=== PATIENT | female | born 1940 | race Caucasian/White ===

== ENCOUNTER → 2016-11-25 | Day surgery (SDC) | payer MEDICARE, OTHER, MEDICAID ==
[~2016-11-25] VITALS: Ht 160 cm; Wt 72.6 kg
[~2016-11-25] MED LIST: ACETAMINOPHEN 325 MG TAB As Ordered ONE; ACETAMINOPHEN TAB 650MG DOSE (2X325MG) PO ONE; ANUS2.5C2 PR; ASPI81TA85 PO; IBUP600T26 PO; IBUPROFEN 600 MG TAB PO PRN; IODINE STRONG SOLN 15 ML BTL As Ordered ONE; KETOROLAC 60 MG/2 ML VIAL (J1885) As Ordered ONE; LABETALOL HCL 100 MG/20 ML VIAL As Ordered ONE; LIDOCAINE 2% INJ 100 MG/5 ML SDV (FOR ANES.) As Ordered ONE; LR 1,000 ML IV SCH; MIDAZOLAM INJ 2 MG/2 ML VIAL (J2250) As Ordered ONE; MIRA3350 PO; NAME28CA PO; OMEG12002 PO; ONDANSETRON 4MG/2ML VIAL (J2405) As Ordered ONE; PERCOCET 5MG/325MG TAB PO PRN; PROPOFOL 200 MG/20 ML VIAL As Ordered ONE; REFR1DRO8 OU; SENN8.6C PO; SERT-138 PO; TYLE650T35 PO; dexameTHASONE 4 MG/ML 1ML VIAL (J1100) As Ordered ONE; ePHEDrine SULFATE 25 MG/5 ML(5MG/ML) SYRINGE As Ordered ONE; fentaNYL 100 MCG/2 ML INJECTION (J3010) As Ordered ONE; fentaNYL 100 MCG/2 ML INJECTION (J3010) IV PRN
[2016-11-25 17:45] VITALS: BP 124/88
--- NOTE | 2016-11-25 20:51 | RO ---
DATE OF PROCEDURE: 11/25/2016 PREOPERATIVE DIAGNOSIS: High-grade dysplasia, postmenopausal bleeding, thickened endometrium by ultrasound. POSTOPERATIVE DIAGNOSIS: High-grade dysplasia, postmenopausal bleeding, thickened endometrium by ultrasound. PROCEDURE: Dilation and curettage, hysteroscopy and colposcopy with loop electrode excision SURGEON: Dr. Mai Valenzuela SECURITY FLEX OFFICER: ANESTHESIA: General endotracheal anesthesia. DESCRIPTION OF PROCEDURE: Anjum was brought to the operating room where sufficient general endotracheal anesthesia was induced, and she was prepped, draped and positioned in the usual sterile fashion, bladder emptied and the anterior aspect of the cervix grasped with a single-tooth tenaculum. The cervix was carefully sounded. The uterus was slightly enlarged for a 76 year old and the hysteroscope was placed. There was quite a bit of tissue in the fluid that was circulating within the uterus. She did not have polypoid projections of the typical sense that you see with some of the more common types of adenocarcinoma of the uterus but there was a lack of cohesion of the tile layer of the uterus evident as we placed the MyoSure and did some resection. This tissue is not as obviously glandular as some is, but definitely there was a layer that could be sloughed off by pressure from the MyoSure, which is certainly not diagnostic specifically but is concerning regarding significant lesion of the endometrium, although not of the most common types based on just the gross appearance. Multiple photographs were taken to document the appearance of the lining and you can see in those photographs that there is a smooth appearance of the lining, not at all polypoid as is often seen but with just pressure from the MyoSure, tissue slid off the lining and away that was concerning. After the MyoSure resection and we did back into the cervix and visualize that, in the endocervical canal, I could not really visualize an abnormality, but we did send separate curettes for this patient in whom I am concerned about the diagnosis. We then did colposcopy, and there was obvious lesion of the cervix and it was the patient's family's desire to go ahead and get a diagnostic result and to do what was needed while she had anesthesia with the dilation and curettage that we needed for the bleeding. So, with that obviously visible lesion, we went ahead and did a LEEP conization as well and this was uncomplicated. The ball-tip cautery was used to cauterize the base of the cervix after the excision. There was no atypical bleeding at the cervix itself. Obviously, we do not have a picture on our colposcope in the operating room (OR), so we had already done the curettings and there were a couple of times the curette had obviously passed through the cervix and definitely some friable tissue there on the cervix, so that was, of course, all included in the sample so it should be fine as far as our diagnostic efforts. After the LEEP was done and good hemostasis was achieved, the procedure was ended. Estimated blood loss for the procedure was maybe 10 mL. Fluid replacement was crystalloid. Complications: None. Condition and Disposition: Anjum tolerated the procedure well and was recovering in the recovery room in good condition.
== END | disposition home or self-care (01) ==
LOC: M SDC 10:44
PROVIDERS: ATTEND Obstetrics & Gynecology
DX: D06.9 Carcinoma in situ of cervix, unspecified (principal); N95.0 Postmenopausal bleeding; R93.8 Abnormal findings on diagnostic imaging of other specified body structures; G30.9 Alzheimer's disease, unspecified; F02.81 Dementia in other diseases classified elsewhere, unspecified severity, with behavioral disturbance; M81.0 Age-related osteoporosis without current pathological fracture; F41.9 Anxiety disorder, unspecified; E78.00 Pure hypercholesterolemia, unspecified; R60.0 Localized edema; K59.00 Constipation, unspecified; R19.7 Diarrhea, unspecified; R29.898 Other symptoms and signs involving the musculoskeletal system; G89.29 Other chronic pain; M54.2 Cervicalgia; M12.9 Arthropathy, unspecified; F32.9 Major depressive disorder, single episode, unspecified; N89.8 Other specified noninflammatory disorders of vagina; Z88.5 Allergy status to narcotic agent; Z79.899 Other long term (current) drug therapy; Z79.82 Long term (current) use of aspirin; Z78.0 Asymptomatic menopausal state

== ENCOUNTER 2016-11-26 11:30 | Inpatient (IN) | payer MEDICARE, OTHER, MEDICAID ==
[~2016-11-26] VITALS: Ht 157.5 cm; Wt 70.9 kg
[~2016-11-26 11:30] MED LIST changes: -ACETAMINOPHEN 325 MG TAB As Ordered ONE; -ACETAMINOPHEN TAB 650MG DOSE (2X325MG) PO ONE; -IBUPROFEN 600 MG TAB PO PRN; -IODINE STRONG SOLN 15 ML BTL As Ordered ONE; -KETOROLAC 60 MG/2 ML VIAL (J1885) As Ordered ONE; -LABETALOL HCL 100 MG/20 ML VIAL As Ordered ONE; -LIDOCAINE 2% INJ 100 MG/5 ML SDV (FOR ANES.) As Ordered ONE; -LR 1,000 ML IV SCH; -MIDAZOLAM INJ 2 MG/2 ML VIAL (J2250) As Ordered ONE; -ONDANSETRON 4MG/2ML VIAL (J2405) As Ordered ONE; -PERCOCET 5MG/325MG TAB PO PRN; -PROPOFOL 200 MG/20 ML VIAL As Ordered ONE; -dexameTHASONE 4 MG/ML 1ML VIAL (J1100) As Ordered ONE; -ePHEDrine SULFATE 25 MG/5 ML(5MG/ML) SYRINGE As Ordered ONE; -fentaNYL 100 MCG/2 ML INJECTION (J3010) As Ordered ONE; -fentaNYL 100 MCG/2 ML INJECTION (J3010) IV PRN
[2016-11-26 12:23] LABS: MEAN CORPUSCULAR HEMOGLOBIN 30.8 pg (27.0-33.0); MEAN CORPUSCULAR VOLUME 90.5 fl (80.0-96.0); PLATELET COUNT, AUTOMATED 139 k/mm3 (150-450); WHITE BLOOD COUNT 28.5 K/mm3 (4.0-10.0)
[2016-11-26] MEDS ORDERED: ACETAMINOPHEN 650 MG SUPP As Ordered ONE (12:32)
[2016-11-26 12:53] LABS: ALBUMIN 2.9 GM/DL (3.2-5.2); ALBUMIN/GLOBULIN RATIO 0.83 (1.00-1.93); BILIRUBIN,DIRECT 0.1 MG/DL (0.0-0.2); BILIRUBIN,TOTAL 0.5 MG/DL (0.2-1.0); CALCIUM LEVEL 8.5 MG/DL (8.8-10.2); CREATININE FOR GFR 1.49 MG/DL (0.55-1.02); GLOMERULAR FILTRATION RATE 36.2 (>39); POTASSIUM SERUM 3.3 MEQ/L (3.5-5.1); TOTAL PROTEIN 6.4 GM/DL (6.4-8.2)
[2016-11-26 12:56] LABS: BANDS 10 % (< 11)
[2016-11-26] MEDS ORDERED: CEFEPIME INJ 2 GM VIAL (MAXIPIME) (J0692) As Ordered ONE (13:05)
[2016-11-26 13:20] LABS: RENAL EPITHELIAL CELLS 1 /HPF
--- NOTE | 2016-11-26 13:57 | REP ---
PORTABLE CHEST AP portable view of the chest is performed and compared to a prior study of 07/03/2014. There is poor ventilation with crowded lung markings in each lung base. No infiltrate is seen. The cardiomediastinal silhouette appears mildly magnified. IMPRESSION: No definite acute infiltrate. Signed by Hunter Murillo MD 11/26/2016 04:28 P
--- NOTE | 2016-11-26 14:57 | REP ---
CT study of the chest without contrast: History: Aspiration. Comparison is made with today's chest x-ray. CT findings: The lungs are symmetrically aerated. There is some subsegmental bibasilar lower lobe plate-like atelectasis bilaterally. No other infiltrate is appreciated. No pleural effusion or pericardial effusion is seen. There is vascular calcification. No hilar or mediastinal mass or adenopathy is seen. 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 This is a normal variant. The thoracic aorta is tortuous and normal in caliber. No extrathoracic mass or adenopathy is seen. No pulmonary mass lesion is observed. Bone window settings demonstrate diffuse degenerative disc disease. There is mild osteoporotic wedging in several thoracic vertebrae. No bony destructive lesion is seen. Impression: Mild bilateral lower lobe discoid atelectasis. Cardiomegaly. Otherwise no acute disease. Signed by Stuart Manzo MD 11/26/2016 03:49 P
--- NOTE | 2016-11-26 14:59 | REP ---
CT STUDY OF THE ABDOMEN AND PELVIS WITHOUT IV OR ORAL CONTRAST: HISTORY: Aspiration. Abdominal pain. Comparison CT study September 09, 2016. FINDINGS: There are multiple low-density areas in this liver consistent with hepatic cysts unchanged from the comparison study. No focal splenic lesion is seen. There are however several small accessory splenules. The gallbladder is mildly distended. It is homogeneous. There is a large cyst occupying the lower pole left kidney. This measures 11.5 cm in AP dimension today, previously 10.7 cm on September 09, 2016. It is slightly larger. No hydronephrosis is seen. No intrarenal calculus is observed. No retroperitoneal mass or adenopathy is seen. Normal caliber aorta is noted. Uterus is somewhat heterogeneous consistent with fibroid change. The endometrium appears thickened or distended. Cannot exclude endometrial hyperplasia or malignancy. This is similar to prior CT and ultrasound appearance. A Tellez catheter is seen within the otherwise empty urinary bladder. No obstructive gastrointestinal lesion is seen. No abdominal wall defect is observed. Bone window settings demonstrate degenerative spine changes. No acute bony abnormality is seen. IMPRESSION: 1. Mildly distended gallbladder. 2. Stable hepatic cysts. 3. 11.5 cm simple cyst left kidney slightly larger than on the September 09, [address] 4. Somewhat enlarged fibroid uterus. Endometrium appears distended similar to prior study and recent ultrasound. I cannot exclude endometrial hyperplasia or malignancy. 5. Tellez catheter. Signed by Stuart Manzo MD 11/26/2016 03:50 P
[2016-11-26] MEDS ORDERED: DIGOXIN INJ 0.5 MG/2 ML AMP (J1160) As Ordered ONE (16:05)
[2016-11-26] MEDS ORDERED: VANCOMYCIN ORAL SOL 250MG/5ML ORAL SYRINGE PO ONE (16:30)
[2016-11-26] MEDS ORDERED: ONDANSETRON 4MG/2ML VIAL (J2405) IV PRN (19:00)
--- NOTE | 2016-11-26 19:33 | ECGEPIP ---
Stationary ECG Study [facility] - ED Test Date: 2016-11-26 Pat Name: JUSTIN CRUZ Department: Room: - Gender: F Automatic Clipper: lyle : 1940 Requested By: Delaney Perez Order Number: [id number] Reading MD: Delaney Perez Measurements Intervals [place] Rate: 104 P: 12 TX: 142 QRS: 10 QRSD: 84 T: 8 QT: 351 QTc: 462 Interpretive Statements SINUS TACHYCARDIA MODERATE T-WAVE ABNORMALITY, CONSIDER ANTEROLATERAL ISCHEMIA LOW VOLTAGE LIMB NSTTW ABNORMALITY Electronically Signed On 11-26-2016 19:33:25 EST by Delaney Perez
--- NOTE | 2016-11-26 19:34 | ECGEPIP ---
Stationary ECG Study [facility] - ED Test Date: 2016-11-26 Pat Name: JUSTIN CRUZ Department: Room: - Gender: F Vehicle Assembler: lyle : 1940 Requested By: Delaney Perez Order Number: [id number] Reading MD: Delaney Perez Measurements Intervals [place] Rate: 176 P: VT: 0 QRS: 27 QRSD: 98 T: 214 QT: 248 QTc: 425 Interpretive Statements SUPRAVENTRICULAR TACHYCARDIA, POSSIBLE ATRIAL FLUTTER ST DEVIATION AND MODERATE T-WAVE ABNORMALITY, CONSIDER ANTEROLATERAL ISCHEMIA ST DEVIATION AND MODERATE T-WAVE ABNORMALITY, CONSIDER INFERIOR ISCHEMIA PRIOR SINUS TACHYCARDIA/ MORE PRONOUNCED ST CHANGES CLINICAL CORRELATION Electronically Signed On 11-26-2016 19:34:02 EST by Delaney Perez
[2016-11-26 19:40] LABS: MEAN CORPUSCULAR HGB CONC 33.8 g/dl (32.0-36.5); MEAN CORPUSCULAR VOLUME 91.8 fl (80.0-96.0); RED CELL DISTRIBUTION WIDTH 13.1 % (11.5-14.5); WHITE BLOOD COUNT 26.4 K/mm3 (4.0-10.0)
[2016-11-26 19:59] LABS: CALCIUM LEVEL 7.5 MG/DL (8.8-10.2); CREATININE FOR GFR 1.28 MG/DL (0.55-1.02); GLOMERULAR FILTRATION RATE 43.2 (>39); POTASSIUM SERUM 3.7 MEQ/L (3.5-5.1)
--- NOTE | 2016-11-26 21:40 | HPE ---
DATE OF ADMISSION: 11/26/2016 PRIMARY CARE PROVIDER: Dr. Becky Garcia BRAND DEVELOPMENT MANAGER: Mai Valenzuela MD CHIEF COMPLAINT: Fever. HISTORY OF PRESENT ILLNESS: The patient is a 76-year-old female with advanced primary progressive aphasia, as well as Alzheimer's type dementia, which is also fairly advanced. She reportedly was found to have dysfunctional uterine discharge, as well as CT scan revealed abnormal thickening of her uterine lining and there was concern for uterine cancer. As such, the patient had a dilatation and curettage and LEEP procedure yesterday. Following this procedure, she was febrile. However, the patient's daughter insisted on taking the patient home. However, the patient did not return to baseline and continued to be febrile. As such, she was brought to the emergency room where she was found to be quite lethargic. The patient reported has a history of chronic urinary tract infections most recently with Escherichia (E) coli, which is fairly pansensitive. The patient is nonverbal at baseline. As such, the history is taken via emergency department provider and discussion with the patient's daughter. The patient was noted to have significant profuse diarrhea for the last several days. PAST MEDICAL HISTORY: 1. Alzheimer's dementia. 2. Primary progressive aphasia. 3. Basal cell skin cancer. 4. Constipation. 5. Depression. 6. Dyslipidemia. 7. Osteoporosis. HOME MEDICATIONS: - Refresh 1.4 eye drops OU twice a day as needed for dry eyes - Namenda XR 28 mg daily - Tylenol 650 mg twice a day as needed for pain - sertraline 100 mg at night ALLERGIES: DEMEROL, CODEINE SULFATE. PAST SURGICAL HISTORY: 1. Rotator cuff repair on the left. 2. Rotator cuff on the right. 3. Appendectomy. 4. Hemorrhoidectomy. 5. Dilatation and curettage. 6. LEEP procedure yesterday. SOCIAL HISTORY: The patient is a nonsmoker. She lives in assisted living and care is overseen by her daughter. Nonsmoker. No alcohol use. FAMILY HISTORY: Noncontributory. REVIEW OF SYSTEMS: Otherwise negative. PHYSICAL EXAMINATION: Blood pressure 74/57, pulse 166, respiratory rate 36, maximum temperature (t-max) 101.8, oxygen saturation 96% on 2 liters nasal cannula. GENERAL: She is a frail elderly female lying on a stretcher at a 30 degree angle. She appears lethargic and is difficult to arouse. She is nonverbal at baseline. She does not follow commands. HEENT: Cranial nerve testing is difficult, but she tracks around the room. She responds to verbal stimuli. She opens her eyes spontaneously. She has very dry mucous membranes. CARDIOVASCULAR EXAM: S1, S2. Significantly tachycardic. RESPIRATORY EXAM: Fairly clear. ABDOMINAL EXAM: Benign. EXTREMITIES: There is no clubbing, cyanosis, or edema. She is quite warm on her extremities. LABORATORY STUDIES: WBC 28.5, hemoglobin 11.6, hematocrit 34.1, platelet count 139. Chemistry panel: Sodium 141, potassium 3.3, chloride 108, bicarbonate 23, BUN 28, creatinine 1.4, baseline appears to be approximately 0.9, lipase and amylase within normal limits. UA has 13 WBC, 1+ bacteria, leukocyte esterase negative. Blood cultures and urine culture currently pending. IMAGING: The patient had a chest x-ray, which revealed no acute infiltrate. Chest CT revealed mild bilateral lower lobe discoid atelectasis. No acute disease. CT of the abdomen and pelvis revealed mildly distended gallbladder, somewhat large fibroid uterus. Endometrium appears distended, similar to prior study and recent ultrasound. Could not exclude endometrial hyperplasia or malignancy. ASSESSMENT AND PLAN: This is a 76-year-old female with septic shock. 1. Septic shock. The etiology at this time is unclear. She has frequent urinary tract infections and as such she has been started on empiric cefepime in the emergency room, which I will continue. Her UA is not profoundly suggestive of a urinary tract infection; however, we will err on the side of caution. In addition to this, the patient has also had diarrhea and has been on antibiotics recently. Given her significant leukemoid reaction, I do have concern for Clostridium (C) difficile and I have started the patient empirically on oral vancomycin while we attempt to obtain a stool sample. No other obvious source remains. A lengthy discussions were had by both Dr. Cedillo and myself with the patient's healthcare proxy/daughter, phone number is [phone]. They have elected not to proceed with a central line. The patient has a Medical Orders for Life Sustaining Treatment (MOLST) form, which is DO NOT RESUSCITATE, DO NOT INTUBATE with limited medical interventions. At this point, they wish to continue with intravenous fluids, antibiotics, but with no further escalation of care. I did have a lengthy discussion with them that given her systolic blood pressure is in the 70s while on intravenous fluids, I am not optimistic about her outcome. I have recommended that they pursue comfort measures should her clinical status worsen, which they are agreeable with at this time. I would not escalate care any further. 2. Acute kidney injury, likely secondary to sepsis. 3. Prerenal azotemia. The patient is receiving intravenous fluids. We will recheck her complete blood count (CBC) and basic metabolic panel (BMP). 4. Hypokalemia. Likely secondary to dehydration. The patient is receiving fluids. We will monitor. She is being rehydrated. 5. Atrial flutter, new onset. Likely secondary to her significant sepsis syndrome. We will check a lactic acid. She did receive digoxin in the emergency room. She may require further digoxin throughout the night; however, I do not think that this will correct until her underlying sepsis is addressed and treated successfully. Dr. Cedillo did discuss synchronized cardioversion, which the family declined. Trend troponin, and if she does not succumb to her illness, we could consider checking an echocardiogram. 6. Primary progressive aphasia, advanced. The patient normally follows with neurologist in [place]; however, she was recently told that there is nothing more he can do for her and has stopped her on any medication. 7. Alzheimer's dementia. The patient normally on Namenda. As she is somewhat lethargic, we will hold oral medications and diet. She is a significant aspiration risk at this moment. 8. Depression. The patient is on sertraline. 9. Deep vein thrombosis (DVT) prophylaxis. The patient will be on Lovenox. DISPOSITION: The patient is admitted to the progressive care unit (PCU) to Dr. Caballero's service. Her prognosis is poor. I have informed the family that I would not be surprised at all if the patient succumbed to her illness within the next 24 hours. Before escalating any care further or the patient would worsen, would recommend speaking with the patient's daughter, phone number [phone] to pursue comfort measures, as this is something they are interested in if she were fail to improve. We are making our last efforts.
[2016-11-26] MEDS ORDERED: CEFEPIME HCL 1 GM in D5W MINI-BAG PLUS 50 ML IV SCH (22:00)
[2016-11-26 22:30] VITALS: BP 89/50
[2016-11-26] MEDS ORDERED: SERTRALINE 100 MG TAB As Ordered ONE (23:06)
[2016-11-26] MEDS: ACETAMINOPHEN 650MG ER TAB (TYLENOL ARTHRITIS) PO SCH (23:07)
[2016-11-26] MEDS: SERTRALINE 100 MG TAB PO SCH (23:07)
[2016-11-26] MEDS: NS 1,000 ML IV SCH (23:08)
[2016-11-27] VITALS (7 sets, daily range): BP systolic 80–120; BP diastolic 47–72
[2016-11-27] MEDS: CEFEPIME HCL 1 GM in D5W MINI-BAG PLUS 50 ML IV SCH ×2 (00:44→13:00)
[2016-11-27] MEDS: VANCOMYCIN ORAL SOL 250MG/5ML ORAL SYRINGE PO SCH ×5 (00:44→23:32)
[2016-11-27 03:16] LABS: MEAN CORPUSCULAR HEMOGLOBIN 31.2 pg (27.0-33.0); MEAN CORPUSCULAR HGB CONC 33.7 g/dl (32.0-36.5); MEAN CORPUSCULAR VOLUME 92.6 fl (80.0-96.0); RED CELL DISTRIBUTION WIDTH 13.2 % (11.5-14.5); WHITE BLOOD COUNT 20.7 K/mm3 (4.0-10.0)
[2016-11-27 03:30] LABS: CALCIUM LEVEL 7.1 MG/DL (8.8-10.2); GLOMERULAR FILTRATION RATE 57.4 (>39); POTASSIUM SERUM 3.4 MEQ/L (3.5-5.1)
[2016-11-27] MEDS: NS 1,000 ML IV SCH (05:16)
[2016-11-27] MEDS: KCL 40MEQ in NS 1000ML 1,000 ML IV SCH ×3 (07:06→22:08)
[2016-11-27] MEDS: metroNIDAZOLE 500 MG in APPROPRIATE DILUENT 1 EA IV SCH ×3 (08:00→23:32)
[2016-11-27] MEDS ORDERED: KCL 40MEQ IN 0.9%NACL 1000ML As Ordered ONE (08:12)
[2016-11-27] MEDS ORDERED: metroNIDAZOLE/NACL 500MG(5MG/ML)100 ML BAG (S0030) As Ordered ONE ×2 (08:45→15:35)
[2016-11-27] MEDS: ACETAMINOPHEN 650MG ER TAB (TYLENOL ARTHRITIS) PO SCH ×2 (09:00→21:00)
[2016-11-27] MEDS ORDERED: ENOXAPARIN 40 MG/0.4 ML SYRINGE (J1650) SC SCH (09:00)
[2016-11-27] MEDS ORDERED: CEFEPIME HCL 1 GM INJ (MAXIPIME) (J0692) As Ordered ONE (12:53)
--- NOTE | 2016-11-27 16:41 | EDDOCDS ---
Physician Documentation [facility] Name: Anjum Klein Age: 76 yrs Sex: Female : 1940 Arrival Date: 11/26/2016 Time: 11:30 Bed Admit Hold Private MD: Mai Valenzuela L Disposition: 11/26/16 14:55 Hospitalization ordered by Santo Broderick for Inpatient Admission. Preliminary diagnosis is Sepsis, unspecified organism. - Bed requested for M ICU. - Status is Inpatient Admission. pml - Condition is Stable. - Problem is new. - Symptoms are unchanged. Historical: - Allergies: Demerol; Codeine Sulfate; - Home Meds: 1. Namenda XR 28 mg oral CSpX 1 cap once daily 2. refresh eye drops twice daily 3. Arthritis Pain Relief 650 mg twice daily 4. 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 No barriers to communication noted, The patient speaks fluent [place]ij[place], Speaks appropriately for age. - Family history: Not pertinent. - : The pt / caregiver states he / she is not on anticoagulants. Home medication list is obtained from family members. - Exposure Risk Screening:: None identified. Vital Signs: 11/26 11:33 BP 133 / 103; Pulse 124; Resp 18 S; Temp 98.8; Pulse Ox 95% on R/A; dd6 11:55 BP 97 / 61 (auto/); jc4 11:56 Temp 101.8(O); nb2 11:56 Pulse 122 MON; Pulse Ox 92% ; jc4 12:56 Pulse Ox 94% ; jc4 13:01 Weight 68.04 kg / 150 lbs (R); Height 5 ft. 2 in. (157.48 cm) (R); jc4 13:01 BP 89 / 55 (auto/); jc4 13:17 BP 91 / 56 (auto/); jc4 13:18 Pulse 110 MON; Pulse Ox 93% ; jc4 13:21 Resp 32 S; Pulse Ox 93% on R/A; jc4 13:40 Pulse 112 MON; Pulse Ox 92% ; jc4 13:47 BP 88 / 54 (auto/); jc4 14:17 BP 87 / 60 (auto/); Resp 36 S; jc4 14:19 Pulse 108 MON; Pulse Ox 94% ; jc4 14:39 Temp 99.3(A); jc4 14:47 BP 85 / 50 (auto/); jc4 14:48 Pulse 104 MON; Pulse Ox 95% ; jc4 15:17 BP 87 / 53 (auto/); jc4 15:17 Pulse 98 MON; Pulse Ox 95% ; jc4 15:24 Pulse 98 MON; Pulse Ox 96% ; jc4 15:25 BP 88 / 53 (auto/); jc4 15:57 Pulse 176 MON; Pulse Ox 95% ; jc4 15:58 BP 83 / 52 (auto/); jc4 16:02 BP 83 / 51 (auto/); jc4 16:02 Pulse 176 MON; Pulse Ox 96% ; jc4 16:17 BP 77 / 52 (auto/); jc4 16:17 Pulse 180 MON; Pulse Ox 96% ; jc4 16:32 BP 82 / 56 (auto/); jc4 16:32 Pulse 184 MON; Pulse Ox 95% ; jc4 16:47 BP 78 / 48 (auto/); jc4 16:47 Pulse 180 MON; Pulse Ox 96% ; jc4 17:00 Pulse 176 MON; Pulse Ox 95% ; jc4 17:02 BP 74 / 57 (auto/); jc4 17:17 BP 86 / 53 (auto/); jc4 17:24 Pulse 166 MON; Pulse Ox 96% ; jc4 17:32 BP 90 / 51 (auto/); jc4 17:32 Pulse 166 MON; Pulse Ox 95% ; jc4 17:47 BP 83 / 50 (auto/); jc4 17:47 Pulse 168 MON; Pulse Ox 95% ; jc4 18:02 BP 81 / 50 (auto/); jc4 18:02 Pulse 162 MON; Pulse Ox 95% ; jc4 18:17 BP 74 / 46 (auto/); jc4 18:17 Pulse 162 MON; Pulse Ox 94% ; jc4 18:32 BP 76 / 49 (auto/); jc4 18:33 Pulse 160 MON; Pulse Ox 94% ; jc4 18:33 Resp 32 S; jc4 18:47 BP 80 / 51 (auto/); jc4 18:49 Pulse 164 MON; Pulse Ox 96% ; jc4 19:17 BP 82 / 50; Pulse 158; Resp 22; Temp 97.8(A); Pulse Ox 96% on 2 lpm NC; Pain 0/10; tm5 20:19 BP 74 / 39; Pulse 92; Resp 20; Pulse Ox 96% on 2 lpm NC; tm5 21:08 BP 104 / 63; Pulse 67; Resp 18; Pulse Ox 96% on 2 lpm NC; tm5 11/27 16:38 BP 126 / 69; Pulse 75; Resp 18; Temp 98.2; Pulse Ox 94% on R/A; pml 11/26 13:01 Body Mass Index 27.44 (68.04 kg, 157.48 cm) jc4 MDM: 11/26 11:46 -Blood Culture (Adults Only), peripheral from different site, or from device/port/PICC sd1 etc. if present ordered. 11:46 Debrander/Pulse Ox/q 30 min VS ordered. sd1 11:47 Amylase Ordered. EDMS 11:47 Basic Metabolic Profile Ordered. EDMS 11:47 CBC with Diff Ordered. EDMS 11:47 Lipase Ordered. EDMS 11:47 Liver Profile Ordered. EDMS 11:47 Lactic Acid (Murillo tube on ice) Ordered. EDMS 11:47 -Blood Culture Ordered. EDMS 11:48 Chest, 1 View Ordered. EDMS 11:48 UA Ordered. EDMS 11:48 Urine Culture Ordered. EDMS 12:13 Tellez ordered. jc4 12:24 NS 0.9% 1000 ml IV at 150 mL/hr continuous ordered. sd1 12:25 Cefepime 2 grams IVPB at 100 mL/hr once over 30 mins; dilute in 50mL of NS or D5W sd1 ordered. 12:25 DIFFERENTIAL NO CHARGE Ordered. EDMS 12:31 Acetaminophen Suppository 650 mg KS once ordered. jc4 12:43 -Blood Culture (Adults Only), peripheral from different site, or from device/port/PICC lbd etc. if present complete. 12:46 BLOOD CULTURES Ordered. EDMS 13:04 NS 0.9% (Sepsis- hypotension or lactate >4mmol/L, 30ml/kg) 30 ml/kg IV at bolus once; sd1 Give in 500mL aliquots, assess for rales after each,2100cc ordered. 13:09 BED REQUEST+ADM ordered. EDMS 13:28 Amylase Reviewed. sd1 13:28 Basic Metabolic Profile Reviewed. sd1 13:28 CBC with Diff Reviewed. sd1 13:28 Lipase Reviewed. sd1 13:28 Liver Profile Reviewed. sd1 13:28 UA Reviewed. sd1 13:28 Lactic Acid (Murillo tube on ice) Reviewed. sd1 13:28 PLATELET ESTIMATE Reviewed. sd1 13:30 CT ABD & PELVIS: No Contrast Ordered. EDMS 13:30 CT Chest Without Contrast Ordered. EDMS 14:06 ECG WITH READING ER PHYS+CARDIAG ordered. EDMS 15:14 vancomycin 125 mg PO once ordered. sd1 15:35 Financial registration complete. [facility] 15:43 [facility] Payment Agreement was scanned into [employer] and attached to record. gjb 15:47 ECG WITH READING ER PHYS+CARDIAG ordered. EDMS 16:02 Digoxin 0.5 mg IVP once ordered. sd1 18:15 GASTROINTESTINAL (GI) PANEL Ordered. EDMS 19:01 Admission / Observation Status ordered. EDMS 19:01 TROPONIN Ordered. EDMS 19:01 LACTIC ACID LEVEL, LACTATE Ordered. EDMS 19:02 COMPLETE BLOOD COUNT Ordered. EDMS 19:02 BASIC METABOLIC PROFILE Ordered. EDMS 19:33 TROPONIN Ordered. EDMS 19:33 TROPONIN Ordered. EDMS 19:33 BASIC METABOLIC PROFILE Ordered. EDMS 19:33 COMPLETE BLOOD COUNT Ordered. EDMS 11/27 08:56 PUREED DIET ordered. EDMS Administered Medications: 11/26 12:50 Drug: Acetaminophen 650 mg [acetaminophen 650 mg rectal suppository (1 supp)] Route: KS;jc4 14:39 Follow up: Temp 99.3 Axillary jc4 12:57 Drug: NS 0.9% 1000 ml [sodium chloride 0.9 % intravenous solution] Route: IV; Rate: 150 jc4 mL/hr; Site: left antecubital; 13:18 Drug: Cefepime 2 grams [cefepime 2 gram solution for injection] Route: IVPB; Rate: 100 jc4 mL/hr; Infused Over: 30 mins; Site: left antecubital; 13:55 Follow up: IV Status: Completed infusion kr3 13:18 Drug: NS 0.9% (Sepsis- hypotension or lactate >4mmol/L, 30ml/kg) 2041.2 ml [sodium jc4 chloride 0.9 % intravenous solution] Route: IV; Rate: bolus; Site: left antecubital; 16:23 Drug: Digoxin 0.5 mg [digoxin 250 mcg/mL injection solution (2 mL)] Route: IVP; Site: jc4 left antecubital; 19:10 Follow up: Response: No Adverse Reaction tm5 16:31 Drug: vancomycin 125 mg Route: PO; jc4 19:10 Follow up: Response: No Adverse Reaction tm5 Signatures: Dispatcher [employer] EDMS Delaney Perez MD MD sd1 Cyndi Claudio, Adjunct Business Instructor [employer] Kath Christine RN RN graham3 Kath Casillas RN RN jc4 Sylvia Musa RN RN Rocio Carmona Kathleen RN kr3 Ann-Marie Lopez RN tm5 The chart was reviewed and I authenticate all verbal orders and agree with the evaluation and treatment provided.Corrections: (The following items were deleted from the chart) 18:15 13:08 CLOSTRIDIUM DIFFICILE PCR+TOM ordered. EDMS EDMS 18:15 18:13 GASTROINTESTINAL (GI) PANEL ordered. EDMS EDMS 11/27 08:55 11/26 11:48 NOTHING BY MOUTH+DIET ordered. EDMS EDMS 11/27 08:55 11/26 19:01 NPO DIET ordered. EDMS EDMS Attachments: 15:43 [facility] Payment Agreement agus [email or web address]
--- NOTE | 2016-11-27 16:42 | EDDOCDS ---
Nurse's Notes [facility] Name: Anjum Klein Age: 76 yrs Sex: Female : 1940 Arrival Date: 11/26/2016 Time: 11:30 Bed Admit Hold Private MD: Mai Valenzuela L Diagnosis: Sepsis, unspecified organism Presentation: 11/26 11:38 Presenting complaint: Daughter states that pt had D&C and LEEP procedure yesterday for jo3 abnormal vaginal discharge and dysplasia of cervix. Fever of 102 today. Pt has not returned to baseline responsiveness since the surgery. Sent home by Dr Valenzuela yesterday under the assumption that pt would return to baseline. Adult Sepsis Screening: Patient has new or worsening altered mentation (1 point). Patient's respiratory rate is less than 22. Systolic blood pressure is greater than 100. Patient has a qSOFA score of 0- Negative Sepsis Screen. Suicide/Homicide risk assessment- the patient denies having any suicidal and/or homicidal ideations and does not present with any other emotional, behavioral or mental health complaints. Status: Patient is not a field service manager or dependent. Transition of care: patient was not received from another setting of care. 11:38 Acuity: CRIS Level 3 jo3 11:38 Method Of Arrival: Walkin/Carried/Asstd jo3 Triage Assessment: 11:44 General: Appears in no apparent distress, uncomfortable, Behavior is quiet. jo3 Neurological: Level of Consciousness is awake. Derm: Skin is pink, warm & dry. Historical: - Allergies: Demerol; Codeine Sulfate; - Home Meds: 1. Namenda XR 28 mg oral CSpX 1 cap once daily 2. refresh eye drops twice daily 3. Arthritis Pain Relief 650 mg twice daily 4. 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 No barriers to communication noted, The patient speaks fluent Armenian, Speaks appropriately for age. - Family history: Not pertinent. - : The pt / caregiver states he / she is not on anticoagulants. Home medication list is obtained from family members. - Exposure Risk Screening:: None identified. Screenin:41 Screening information is obtained from family members. Fall risk: At risk due to jc4 apparent cognitive impairment, The following interventions are performed due to a positive Fall Risk Screen: Fall Risk is added to Special Handling on the patient Summary Screen. A Fall Risk Bracelet was applied to the patient. Side Rails are placed in the up position. A Call Worrell is given with instruction to call for help when getting out of bed. Assistance ADL's: Requires assistance with meal preparation, this assistance is provided by family members, bathing, assistance is provided by family members, dressing, assistance is provided by family members, toileting, assistance is provided by family members, ambulation, assistance is provided by family members, housework, assistance is provided by family members, medication administration, assistance is provided by family members. Abuse/DV Screen: The patient / caregiver reports he/she is: pt cannot be assessed for living situation at this time. Nutritional screening: diarrhea for the past few days, has been vomiting since procedure. Advance Directives: There is an active DNR order and the pt has a copy here at this time. home support is adequate. Assessment: 13:19 General: Appears ill, Behavior is eyes open, smiling. No verbal response which daughter trevor states is baseline mental status. Pain: Unable to use pain scale. Neurological: Level of Consciousness is awake. EENT: Oral mucosa is dry. Cardiovascular: Rhythm is sinus tachycardia No ectopy. Respiratory: Airway is patent Respiratory effort is unlabored, Respiratory pattern is regular, tachypnea Breath sounds are clear bilaterally. GI: Abdomen is non- distended Bowel sounds present X 4 quads. Abd is soft and non tender X 4 quads. : Urine is light tea colored. Tellez catheter in place. Derm: Skin is dry, Skin is flushed, Skin temperature is hot. 13:30 General: Bruising and swelling noted to left hand, daughter states that pt had IV jc4 placed in hand yesterday. 14:39 General: Pt with eyes closed on stretcher. Color pink, skin warm and dry. Pt opens jc4 eyes, non-verbal. Respirations 36/minute, breath sounds are clear. SaO2-91%, patient placed on 2 liters nasal canula. Daughter at bedside, supportive and loving. . 15:38 General: Pt lying on stretcher. No distress noted. Color pink, skin warm and dry. jc4 Respirations easy, resp 32/minute. Lungs clear. IVF bolus continuing. Daughter inquiring regarding pathology results. Dr. Perez consulted. 15:45 General: Pt lying on stretcher with eyes closed. Respirations 36/minute, SaO2-94% on 2 jc4 liters nasal canula. Heart rate 180 bpm, narrow complex tachycardia. Dr. Perez notified. 16:02 General: Swabs given for oral care. Daughter assisting in care, who is loving and jc4 supportive. 16:31 General: Dr. Valenzuela in to examine patient, and speak with family. jc4 16:33 General: Pt with eyes open. Non-verbal. Color pink, skin warm and dry. Respirations jc4 32/minute. monitoring engineer - narrow complex tachycardia, rate 184 bpm. Pt maintained on 2 liters nasal canula. IVF infusing well, site clear. 16:38 General: Lungs clear. Respirations 32/minute, SaO2-95% on 2 liters nasal canula. IVF jc4 bolus continued, site clear. 17:54 General: Daughter, son and [id number] at the bedside. Pt's MOLST form reviewed jc4 with them per their request. Pt with eyes closed on stretcher. Color pink, skin warm and dry. Respirations 32/minute. monitoring engineer - narrow complex tachycardia, rate 163 bpm. IVF infusing well, site clear. Pt has been placed on bedpan as daughter felt she looked uncomfortable, but patient did not have BM. 18:24 General: Dr. Zapata in to examine patient and speak with family. jc4 19:17 General: Appears ill, Behavior is non-verbal pt which per daughter is pt's baseline, pt tm5 smiles at this RN while providing care . Pain: Unable to use pain scale. pt is non-verbal. Neurological: Level of Consciousness is awake. Cardiovascular: Rhythm is sinus tachycardia No ectopy. Respiratory: Airway is patent Respiratory effort is even, unlabored, Respiratory pattern is regular, Breath sounds are clear bilaterally. GI: Abdomen is non- distended Bowel sounds present X 4 quads. Abd is soft and non tender X 4 quads. Derm: Skin is pink, warm & dry. normal. 19:31 General: [employer]OR [employer] AT BEDSIDE, ADMISSION LABS DRAWN . tm5 20:19 Reassessment: Patient appears in no apparent distress at this time. Patient states tm5 symptoms have improved. pt was repositioned to her left side by family & this RN, pt appears to be in no distress, Heart rate has decreased to Sinus rhythm after repositioning pt . Cardiovascular: Rhythm is sinus rhythm No ectopy. 21:08 Reassessment: Patient appears in no apparent distress at this time. pt is more alert at tm5 this time, daughter is doing mouth care on pt right now, no s/s of any distress. Cardiovascular: Rhythm is sinus rhythm No ectopy. 22:30 General: pt placed in hospital bed & placed in Rm 21 for Hold admission . tm5 11/27 07:28 General: Appears uncomfortable, Behavior is appropriate for age, cooperative. pml Neurological: Level of Consciousness is awake, alert, obeys commands. Cardiovascular: Capillary refill < 3 seconds Rhythm is sinus rhythm No ectopy. Respiratory: Airway is patent Respiratory effort is even, unlabored. GI: Abdomen is non- distended. Derm: Skin is pink, warm & dry. 09:34 General: pt awake and alert, obeying commands, tolerating sips of pudding thick pml cranberry juice without difficulty. answers questions with one word answers appropriately. family at bedside. 12:00 General: Appears in no apparent distress, comfortable, Behavior is appropriate for age, pml cooperative. Pain: Denies pain. Neurological: Level of Consciousness is awake, alert. Cardiovascular: Capillary refill < 3 seconds. Cardiovascular: Rhythm is sinus rhythm No ectopy. Respiratory: Airway is patent Respiratory effort is even, unlabored. Derm: Skin is pink, warm & dry. 16:38 General: Appears in no apparent distress, Behavior is appropriate for age, cooperative. pml Pain: Denies pain. Neurological: Level of Consciousness is awake, alert, obeys commands. Cardiovascular: Capillary refill < 3 seconds Rhythm is sinus rhythm No ectopy. Respiratory: Airway is patent Respiratory effort is even, unlabored. GI: Abdomen is non- distended. Derm: Skin is pink, warm & dry. Vital Signs: 11/26 11:33 BP 133 / 103; Pulse 124; Resp 18 S; Temp 98.8; Pulse Ox 95% on R/A; dd6 11:55 BP 97 / 61 (auto/); jc4 11:56 Temp 101.8(O); nb2 11:56 Pulse 122 MON; Pulse Ox 92% ; jc4 12:56 Pulse Ox 94% ; jc4 13:01 Weight 68.04 kg (R); Height 5 ft. 2 in. (157.48 cm) (R); jc4 13:01 BP 89 / 55 (auto/); jc4 13:17 BP 91 / 56 (auto/); jc4 13:18 Pulse 110 MON; Pulse Ox 93% ; jc4 13:21 Resp 32 S; Pulse Ox 93% on R/A; jc4 13:40 Pulse 112 MON; Pulse Ox 92% ; jc4 13:47 BP 88 / 54 (auto/); jc4 14:17 BP 87 / 60 (auto/); Resp 36 S; jc4 14:19 Pulse 108 MON; Pulse Ox 94% ; jc4 14:39 Temp 99.3(A); jc4 14:47 BP 85 / 50 (auto/); jc4 14:48 Pulse 104 MON; Pulse Ox 95% ; jc4 15:17 BP 87 / 53 (auto/); jc4 15:17 Pulse 98 MON; Pulse Ox 95% ; jc4 15:24 Pulse 98 MON; Pulse Ox 96% ; jc4 15:25 BP 88 / 53 (auto/); jc4 15:57 Pulse 176 MON; Pulse Ox 95% ; jc4 15:58 BP 83 / 52 (auto/); jc4 16:02 BP 83 / 51 (auto/); jc4 16:02 Pulse 176 MON; Pulse Ox 96% ; jc4 16:17 BP 77 / 52 (auto/); jc4 16:17 Pulse 180 MON; Pulse Ox 96% ; jc4 16:32 BP 82 / 56 (auto/); jc4 16:32 Pulse 184 MON; Pulse Ox 95% ; jc4 16:47 BP 78 / 48 (auto/); jc4 16:47 Pulse 180 MON; Pulse Ox 96% ; jc4 17:00 Pulse 176 MON; Pulse Ox 95% ; jc4 17:02 BP 74 / 57 (auto/); jc4 17:17 BP 86 / 53 (auto/); jc4 17:24 Pulse 166 MON; Pulse Ox 96% ; jc4 17:32 BP 90 / 51 (auto/); jc4 17:32 Pulse 166 MON; Pulse Ox 95% ; jc4 17:47 BP 83 / 50 (auto/); jc4 17:47 Pulse 168 MON; Pulse Ox 95% ; jc4 18:02 BP 81 / 50 (auto/); jc4 18:02 Pulse 162 MON; Pulse Ox 95% ; jc4 18:17 BP 74 / 46 (auto/); jc4 18:17 Pulse 162 MON; Pulse Ox 94% ; jc4 18:32 BP 76 / 49 (auto/); jc4 18:33 Pulse 160 MON; Pulse Ox 94% ; jc4 18:33 Resp 32 S; jc4 18:47 BP 80 / 51 (auto/); jc4 18:49 Pulse 164 MON; Pulse Ox 96% ; jc4 19:17 BP 82 / 50; Pulse 158; Resp 22; Temp 97.8(A); Pulse Ox 96% on 2 lpm NC; Pain 0/10; tm5 20:19 BP 74 / 39; Pulse 92; Resp 20; Pulse Ox 96% on 2 lpm NC; tm5 21:08 BP 104 / 63; Pulse 67; Resp 18; Pulse Ox 96% on 2 lpm NC; tm5 11/27 16:38 BP 126 / 69; Pulse 75; Resp 18; Temp 98.2; Pulse Ox 94% on R/A; pml 11/26 13:01 Body Mass Index 27.44 (68.04 kg, 157.48 cm) [facility] Vitals: 11/26 11:33 Log In Time: November 26, 2016 at 11:31. dd6 ED Course: 11:32 Patient visited by James Jalloh PCA. dd6 11:32 Patient moved to Waiting dd6 11:33 Mai Valenzuela is Private Physician. dd6 11:34 Patient moved to Pre RCE dd6 11:42 Triage Initiated jo3 11:43 Kath Casillas RN is Primary Nurse. ttb 11:43 Jeniffer Barraza RN is Primary Nurse. ttb 11:43 Patient moved to 17 ttb 11:45 Patient visited by Kath Christine RN. jo3 11:56 Patient visited by Ailyn Grimm. nb2 11:56 Placed in gown. Bed in low position. Call light in reach. Side rails up X2. Cardiac nb2 monitor on. Pulse ox on. NIBP on. 12:03 Delaney Perez MD is Attending Physician. sd1 12:05 Patient visited by Delaney Perez MD. sd1 12:55 Inserted saline lock: 20 gauge in left antecubital area The patient tolerated the jc4 procedure well. 12:57 DIFFERENTIAL NO CHARGE Sent. jc4 12:58 Urine Culture Sent. jc4 12:58 UA Sent. jc4 12:58 Tellez cath inserted 16 Fr. Balloon inflated. To gravity drainage. Urine specimen jc4 collected. Patient tolerated well. 13:19 The patient / caregiver is instructed regarding the plan of care and ED course. jc4 13:21 Patient visited by Kath Casillas, ADRIA. jc4 14:27 Patient visited by Kath Casillas RN. jc4 14:36 Chest, 1 View Returned. EDMS 14:42 EKG done. (by ED staff). Reviewed by Delaney Perez MD. nb2 14:43 Patient visited by Ailyn Grimm. nb2 14:55 Santo Broderick is Hospitalizing Provider. sd1 15:25 CT Chest Without Contrast Returned. EDMS 15:25 CT ABD & PELVIS: No Contrast Returned. EDMS 15:43 [facility] Payment Agreement was scanned into [employer] and attached to record. gjb 15:53 EKG done. (by ED staff). Reviewed by Delaney Perez MD. nb2 16:03 Patient visited by Ailyn Grimm. nb2 19:07 Patient moved to Admit Hold daq 19:11 Patient visited by Ann-Marie Lopez,ADRIA. tm5 19:11 Report received from Mariangel Dixon RN, assumed care of pt at this time. tm5 19:12 Awaiting bed assignment. tm5 19:17 Patient visited by Ann-Marie Lopez,ADRIA. tm5 19:31 Patient visited by Ann-Marie Lopez,ADRIA. tm5 19:43 EKG-ADULT Returned. EDMS 19:43 EKG-ADULT Returned. EDMS 20:24 Patient visited by Ann-Marie Lopez RN. tm5 20:24 family notified that pt will be a holding pt in the ER due to no admission beds in the [address], family is understanding of this . 21:48 Primary Nurse role handed off by Jeniffer Barraza,ADRIA 6 22:29 Patient visited by Ann-Marie Lopez RN. [facility] 22:30 Patient moved to 21 [facility] 22:45 Primary Nurse role handed off by Kath Casillas RN [facility] 11/27 03:47 Patient moved to Admit Hold kmg1 07:28 Patient visited by Sylvia Musa,ADRIA. pml 09:35 Patient visited by Sylvia Musa,ADRIA. pml 12:00 Patient visited by Sylvia Musa,ADRIA. pml 16:38 No procedures done that require assistance. pml Administered Medications: 11/26 12:50 Drug: Acetaminophen 650 mg [acetaminophen 650 mg rectal suppository (1 supp)] Route: VT;jc4 14:39 Follow up: Temp 99.3 Axillary jc4 12:57 Drug: NS 0.9% 1000 ml [sodium chloride 0.9 % intravenous solution] Route: IV; Rate: 150 jc4 mL/hr; Site: left antecubital; 13:18 Drug: Cefepime 2 grams [cefepime 2 gram solution for injection] Route: IVPB; Rate: 100 jc4 mL/hr; Infused Over: 30 mins; Site: left antecubital; 13:55 Follow up: IV Status: Completed infusion 3 13:18 Drug: NS 0.9% (Sepsis- hypotension or lactate >4mmol/L, 30ml/kg) 2041.2 ml [sodium jc4 chloride 0.9 % intravenous solution] Route: IV; Rate: bolus; Site: left antecubital; 16:23 Drug: Digoxin 0.5 mg [digoxin 250 mcg/mL injection solution (2 mL)] Route: IVP; Site: jc4 left antecubital; 19:10 Follow up: Response: No Adverse Reaction tm5 16:31 Drug: vancomycin 125 mg Route: PO; jc4 19:10 Follow up: Response: No Adverse Reaction 5 Intake: 14:30 IV: 500.00ml (NS); Total: 500.00ml. jc4 15:38 IV: 500.00ml (NS); Total: 1000.00ml. jc4 16:39 IV: 500.00ml (NS); Total: 1500.00ml. jc4 18:23 IV: 500.00ml (NS); Total: 2000.00ml. jc4 Order Results: Lab Order: Amylase; SPEC'M 11/26/16 12:07 Test: AMYLASE; Value: 16; Range: 25-115; Abnormal: Below low normal; Units: U/L; Status: F Lab Order: Basic Metabolic Profile; SPEC'M 11/26/16 12:07 Test: GLUCOSE, FASTING; Value: 117; Range: 83-110; Abnormal: Above high normal; Units: MG/DL; Status: F Test: BLOOD UREA NITROGEN; Value: 28; Range: 7-18; Abnormal: Above high normal; Units: MG/DL; Status: F Test: CREATININE FOR GFR; Value: 1.49; Range: 0.55-1.02; Abnormal: Above high normal; Units: MG/DL; Status: F Test: GLOMERULAR FILTRATION RATE; Value: 36.2; Range: >39; Abnormal: Below low normal; Status: F Test: SODIUM LEVEL; Value: 141; Range: 136-145; Units: MEQ/L; Status: F Test: POTASSIUM SERUM; Value: 3.3; Range: 3.5-5.1; Abnormal: Below low normal; Units: MEQ/L; Status: F Test: CHLORIDE LEVEL; Value: 108; Range: 98-107; Abnormal: Above high normal; Units: MEQ/L; Status: F Test: CARBON DIOXIDE LEVEL; Value: 23; Range: 21-32; Units: MEQ/L; Status: F Test: ANION GAP; Value: 10; Range: 8-16; Units: MEQ/L; Status: F Test: CALCIUM LEVEL; Value: 8.5; Range: 8.8-10.2; Abnormal: Below low normal; Units: MG/DL; Status: F Test Note: ; Units are mL/min/1.73 m2 Chronic Kidney Disease Staging per NKF: Stage I & II GFR >=60 Normal to Mildly Decreased Stage III GFR 30-59 Moderately Decreased Stage IV GFR 15-29 Severely Decreased Stage V GFR <15 Very Little GFR Left ESRD GFR <15 on FUSING MACHINE OPERATOR Lab Order: CBC with Diff; SPEC'M 11/26/16 12:07 Test: WHITE BLOOD COUNT; Value: 28.5; Range: 4.0-10.0; Abnormal: Above high normal; Units: K/mm3; Status: F Test: RED BLOOD COUNT; Value: 3.77; Range: 4.00-5.40; Abnormal: Below low normal; Units: M/mm3; Status: F Test: HEMOGLOBIN; Value: 11.6; Range: 12.0-16.0; Abnormal: Below low normal; Units: g/dl; Status: F Test: HEMATOCRIT; Value: 34.1; Range: 36.0-47.0; Abnormal: Below low normal; Units: %; Status: F Test: MEAN CORPUSCULAR VOLUME; Value: 90.5; Range: 80.0-96.0; Units: fl; Status: F Test: MEAN CORPUSCULAR HEMOGLOBIN; Value: 30.8; Range: 27.0-33.0; Units: pg; Status: F Test: MEAN CORPUSCULAR HGB CONC; Value: 34.0; Range: 32.0-36.5; Units: g/dl; Status: F Test: RED CELL DISTRIBUTION WIDTH; Value: 13.0; Range: 11.5-14.5; Units: %; Status: F Test: PLATELET COUNT, AUTOMATED; Value: 139; Range: 150-450; Abnormal: Below low normal; Units: k/mm3; Status: F Test: NEUTROPHILS; Value: 84; Range: 35-75; Abnormal: Above high normal; Units: %; Status: F Test: BANDS; Value: 10; Range: < 11; Units: %; Status: F Test: MONOCYTES; Value: 3; Range: 0-8; Units: %; Status: F Test: ATYPICAL LYMPH; Value: 3; Range: 0-5; Units: %; Status: F Test: RBC MORPHOLOGY; Value: NORMAL; Status: F Lab Order: Lipase; SPEC'11/26/16 12:07 Test: LIPASE; Value: 42; Range: 73-393; Abnormal: Below low normal; Units: U/L; Status: F Lab Order: Liver Profile; SPEC11/26/16 12:07 Test: AST/SGOT; Value: 83; Range: 15-37; Abnormal: Above high normal; Units: U/L; Status: F Test: ALT/SGPT; Value: 50; Range: 12-78; Units: U/L; Status: F Test: ALKALINE PHOSPHATASE; Value: 73; Range: 45-117; Units: U/L; Status: F Test: BILIRUBIN,TOTAL; Value: 0.5; Range: 0.2-1.0; Units: MG/DL; Status: F Test: BILIRUBIN,DIRECT; Value: 0.1; Range: 0.0-0.2; Units: MG/DL; Status: F Test: TOTAL PROTEIN; Value: 6.4; Range: 6.4-8.2; Units: GM/DL; Status: F Test: ALBUMIN; Value: 2.9; Range: 3.2-5.2; Abnormal: Below low normal; Units: GM/DL; Status: F Test: ALBUMIN/GLOBULIN RATIO; Value: 0.83; Range: 1.00-1.93; Abnormal: Below low normal; Status: F Lab Order: Lactic Acid (Murillo tube on ice); SPEC'M 11/26/16 12:07 Test: LACTIC ACID LEVEL, LACTATE; Value: 2.0; Range: 0.4-2.0; Units: MMOL/L; Status: F Lab Order: -Blood Culture; SPEC'M 11/26/16 12:06 Test: BLOOD CULTURE; Value: No growth after 24 hours . All specimens observed; Status: F Test: BLOOD CULTURE; Value: for 7 days. Results final at that time.; Status: F Lab Order: UA; SPEC'M 11/26/16 12:50 Test: APPEARANCE, URINE; Value: CLOUDY; Range: CLEAR; Abnormal: Above high normal; Status: F Test: COLOR, URINE; Value: MARE; Range: YELLOW; Status: F Test: PH,URINE; Value: 5.0; Range: 5.0-9.0; Units: UNITS; Status: F Test: SPECIFIC GRAVITY URINE AUTO; Value: 1.026; Range: 1.002-1.035; Status: F Test: PROTEIN, URINE AUTO; Value: 2+; Range: NEGATIVE; Abnormal: Above high normal; Units: mg/dL; Status: F Test: GLUCOSE, URINE (UA) AUTO; Value: NEGATIVE; Range: NEGATIVE; Units: mg/dL; Status: F Test: KETONE, URINE AUTO; Value: NEGATIVE; Range: NEGATIVE; Units: mg/dL; Status: F Test: UROBILINOGEN, URINE AUTO; Value: 0.2; Range: 0.0-2.0; Units: mg/dL; Status: F Test: BILIRUBIN, URINE AUTO; Value: NEGATIVE; Range: NEGATIVE; Status: F Test: NITRITE, URINE AUTO; Value: POSITIVE; Range: NEGATIVE; Status: F Test: LEUKOCYTE ESTERASE, URINE AUTO; Value: NEGATIVE; Range: NEGATIVE; Status: F Test: BLOOD, URINE BLOOD; Value: 1+; Range: NEGATIVE; Abnormal: Above high normal; Status: F Test: WBC, URINE AUTO; Value: 13; Range: 0-3; Abnormal: Above high normal; Units: /HPF; Status: F Test: RBC, URINE AUTO; Value: 4; Range: 0-3; Abnormal: Above high normal; Units: /HPF; Status: F Test: BACTERIA, URINE AUTO; Value: 1+; Range: NEGATIVE; Abnormal: Above high normal; Status: F Test: SQUAMOUS EPITHELIAL CELL UR AU; Value: 2; Range: 0-6; Units: /HPF; Status: F Test: TRANSITIONAL EPITHELIAL AUTO; Value: 1; Range: NONE; Units: /HPF; Status: F Test: RENAL EPITHELIAL CELLS; Value: 1; Range: NONE; Units: /HPF; Status: F Test: MUCUS, URINE; Value: SMALL; Range: NEGATIVE; Status: F Test: HYALINE CAST, URINE AUTO; Value: 6; Range: 0-1; Units: /LPF; Status: F Test: GRANULAR CAST, URINE AUTO; Value: 19; Range: NONE; Units: /LPF; Status: F Test: AMORPHOUS SEDIMENT; Value: MODERATE; Range: NEGATIVE; Abnormal: Above high normal; Status: F Lab Order: PLATELET ESTIMATE; SPEC'M 11/26/16 12:07 Test: PLATELET ESTIMATE; Value: NORMAL; Range: NORMAL; Status: F Lab Order: BLOOD CULTURES; SPEC'M 11/26/16 12:28 Test: BLOOD CULTURE; Value: No growth after 24 hours . All specimens observed; Status: F Test: BLOOD CULTURE; Value: for 7 days. Results final at that time.; Status: F Lab Order: TROPONIN; SPEC'M 11/26/16 19:29 Test: TROPONIN I; Value: 0.11; Range: < 0.10; Abnormal: Above high normal; Units: NG/ML; Status: F Test Note: ; Troponin I Reference Interval for [employer] LOCI: 99th Percentile= 0.00-0.045 ng/ml Risk Stratification: <= 0.10 ng/ml Decreased Risk for Adverse Clinical Events. 0.10-1.50 ng/ml Increased Risk for Adverse Clinical Events. Evaluation of additional criterion and/or repeat testing in 2-6 hours is suggested to rule out myocardial damage. >= 1.50 ng/ml Indicative of Myocardial Injury. Lab Order: LACTIC ACID LEVEL, LACTATE; SPEC'M 11/26/16 19:29 Test: LACTIC ACID LEVEL, LACTATE; Value: 1.6; Range: 0.4-2.0; Units: MMOL/L; Status: F Lab Order: COMPLETE BLOOD COUNT; SPEC11/26/16: Test: WHITE BLOOD COUNT; Value: 26.4; Range: 4.0-10.0; Abnormal: Above high normal; Units: K/mm3; Status: F Test: RED BLOOD COUNT; Value: 3.31; Range: 4.00-5.40; Abnormal: Below low normal; Units: M/mm3; Status: F Test: HEMOGLOBIN; Value: 10.3; Range: 12.0-16.0; Abnormal: Below low normal; Units: g/dl; Status: F Test: HEMATOCRIT; Value: 30.4; Range: 36.0-47.0; Abnormal: Below low normal; Units: %; Status: F Test: MEAN CORPUSCULAR VOLUME; Value: 91.8; Range: 80.0-96.0; Units: fl; Status: F Test: MEAN CORPUSCULAR HEMOGLOBIN; Value: 31.0; Range: 27.0-33.0; Units: pg; Status: F Test: MEAN CORPUSCULAR HGB CONC; Value: 33.8; Range: 32.0-36.5; Units: g/dl; Status: F Test: RED CELL DISTRIBUTION WIDTH; Value: 13.1; Range: 11.5-14.5; Units: %; Status: F Test: PLATELET COUNT, AUTOMATED; Value: 114; Range: 150-450; Abnormal: Below low normal; Units: k/mm3; Status: F Lab Order: BASIC METABOLIC PROFILE; SPEC'11/26/16 19:29 Test: GLUCOSE, FASTING; Value: 105; Range: 83-110; Units: MG/DL; Status: F Test: BLOOD UREA NITROGEN; Value: 34; Range: 7-18; Abnormal: Above high normal; Units: MG/DL; Status: F Test: CREATININE FOR GFR; Value: 1.28; Range: 0.55-1.02; Abnormal: Above high normal; Units: MG/DL; Status: F Test: GLOMERULAR FILTRATION RATE; Value: 43.2; Range: >39; Status: F Test: SODIUM LEVEL; Value: 145; Range: 136-145; Units: MEQ/L; Status: F Test: POTASSIUM SERUM; Value: 3.7; Range: 3.5-5.1; Units: MEQ/L; Status: F Test: CHLORIDE LEVEL; Value: 113; Range: 98-107; Abnormal: Above high normal; Units: MEQ/L; Status: F Test: CARBON DIOXIDE LEVEL; Value: 20; Range: 21-32; Abnormal: Below low normal; Units: MEQ/L; Status: F Test: ANION GAP; Value: 12; Range: 8-16; Units: MEQ/L; Status: F Test: CALCIUM LEVEL; Value: 7.5; Range: 8.8-10.2; Abnormal: Below low normal; Units: MG/DL; Status: F Test Note: ; Units are mL/min/1.73 m2 Chronic Kidney Disease Staging per NKF: Stage I & II GFR >=60 Normal to Mildly Decreased Stage III GFR 30-59 Moderately Decreased Stage IV GFR 15-29 Severely Decreased Stage V GFR <15 Very Little GFR Left ESRD GFR <15 on FUSING MACHINE OPERATOR Lab Order: TROPONIN; SPEC'M 11/27/16 02:55 Test: TROPONIN I; Value: 1.27; Range: < 0.10; Abnormal: High; Units: NG/ML; Status: F Test Note: ; Troponin I Reference Interval for [employer] LOCI: 99th Percentile= 0.00-0.045 ng/ml Risk Stratification: <= 0.10 ng/ml Decreased Risk for Adverse Clinical Events. 0.10-1.50 ng/ml Increased Risk for Adverse Clinical Events. Evaluation of additional criterion and/or repeat testing in 2-6 hours is suggested to rule out myocardial damage. >= 1.50 ng/ml Indicative of Myocardial Injury. Lab Order: TROPONIN; SPEC'M 11/27/16 11:06 Test: TROPONIN I; Value: 0.70; Range: < 0.10; Abnormal: High; Units: NG/ML; Status: F Test Note: ; Troponin I Reference Interval for [facility] [place] LOCI: 99th Percentile= 0.00-0.045 ng/ml Risk Stratification: <= 0.10 ng/ml Decreased Risk for Adverse Clinical Events. 0.10-1.50 ng/ml Increased Risk for Adverse Clinical Events. Evaluation of additional criterion and/or repeat testing in 2-6 hours is suggested to rule out myocardial damage. >= 1.50 ng/ml Indicative of Myocardial Injury. Lab Order: BASIC METABOLIC PROFILE; SPEC'M 11/27/16 02:55 Test: GLUCOSE, FASTING; Value: 100; Range: 83-110; Units: MG/DL; Status: F Test: BLOOD UREA NITROGEN; Value: 33; Range: 7-18; Abnormal: Above high normal; Units: MG/DL; Status: F Test: CREATININE FOR GFR; Value: 1.00; Range: 0.55-1.02; Units: MG/DL; Status: F Test: GLOMERULAR FILTRATION RATE; Value: 57.4; Range: >39; Status: F Test: SODIUM LEVEL; Value: 147; Range: 136-145; Abnormal: Above high normal; Units: MEQ/L; Status: F Test: POTASSIUM SERUM; Value: 3.4; Range: 3.5-5.1; Abnormal: Below low normal; Units: MEQ/L; Status: F Test: CHLORIDE LEVEL; Value: 114; Range: 98-107; Abnormal: Above high normal; Units: MEQ/L; Status: F Test: CARBON DIOXIDE LEVEL; Value: 22; Range: 21-32; Units: MEQ/L; Status: F Test: ANION GAP; Value: 11; Range: 8-16; Units: MEQ/L; Status: F Test: CALCIUM LEVEL; Value: 7.1; Range: 8.8-10.2; Abnormal: Below low normal; Units: MG/DL; Status: F Test Note: ; Units are mL/min/1.73 m2 Chronic Kidney Disease Staging per NKF: Stage I & II GFR >=60 Normal to Mildly Decreased Stage III GFR 30-59 Moderately Decreased Stage IV GFR 15-29 Severely Decreased Stage V GFR <15 Very Little GFR Left ESRD GFR <15 on FUSING MACHINE OPERATOR Lab Order: COMPLETE BLOOD COUNT; SPEC'M 11/27/16 02:55 Test: WHITE BLOOD COUNT; Value: 20.7; Range: 4.0-10.0; Abnormal: Above high normal; Units: K/mm3; Status: F Test: RED BLOOD COUNT; Value: 3.09; Range: 4.00-5.40; Abnormal: Below low normal; Units: M/mm3; Status: F Test: HEMOGLOBIN; Value: 9.6; Range: 12.0-16.0; Abnormal: Below low normal; Units: g/dl; Status: F Test: HEMATOCRIT; Value: 28.6; Range: 36.0-47.0; Abnormal: Below low normal; Units: %; Status: F Test: MEAN CORPUSCULAR VOLUME; Value: 92.6; Range: 80.0-96.0; Units: fl; Status: F Test: MEAN CORPUSCULAR HEMOGLOBIN; Value: 31.2; Range: 27.0-33.0; Units: pg; Status: F Test: MEAN CORPUSCULAR HGB CONC; Value: 33.7; Range: 32.0-36.5; Units: g/dl; Status: F Test: RED CELL DISTRIBUTION WIDTH; Value: 13.2; Range: 11.5-14.5; Units: %; Status: F Test: PLATELET COUNT, AUTOMATED; Value: 111; Range: 150-450; Abnormal: Below low normal; Units: k/mm3; Status: F Radiology Order: Chest, 1 View Test: Chest, 1 View REASON FOR EXAMINATION: fever; PORTABLE CHEST; ; AP portable view of the chest is performed and compared to a prior study of; 07/03/2014.; ; There is poor ventilation with crowded lung markings in each lung base. No; infiltrate is seen. The cardiomediastinal silhouette appears mildly magnified.; ; IMPRESSION:; ; No definite acute infiltrate.; ; ; Signed by; Hunter Murillo MD 11/26/2016 04:28 P; Radiology Order: CT ABD & PELVIS: No Contrast Test: CT ABD & PELVIS: No Contrast REASON FOR EXAMINATION: Abdomen Pain; CT STUDY OF THE ABDOMEN AND PELVIS WITHOUT IV OR ORAL CONTRAST:; ; HISTORY: Aspiration. Abdominal pain.; ; Comparison CT study September 09, 2016.; ; FINDINGS: There are multiple low-density areas in this liver consistent with; hepatic cysts unchanged from the comparison study. No focal splenic lesion is; seen. There are however several small accessory splenules. The gallbladder is; mildly distended. It is homogeneous. There is a large cyst occupying the lower; pole left kidney. This measures 11.5 cm in AP dimension today, previously 10.7; cm on September 09, 2016. It is slightly larger. No hydronephrosis is seen. No; intrarenal calculus is observed. No retroperitoneal mass or adenopathy is seen.; Normal caliber aorta is noted. Uterus is somewhat heterogeneous consistent with; fibroid change. The endometrium appears thickened or distended. Cannot exclude; endometrial hyperplasia or malignancy. This is similar to prior CT and; ultrasound appearance. A Tellez catheter is seen within the otherwise empty; urinary bladder. No obstructive gastrointestinal lesion is seen. No abdominal; wall defect is observed. Bone window settings demonstrate degenerative spine; changes. No acute bony abnormality is seen.; ; IMPRESSION:; ; 1. Mildly distended gallbladder.; ; 2. Stable hepatic cysts.; ; 3. 11.5 cm simple cyst left kidney slightly larger than on the September 09, 2016; prior CT.; ; 4. Somewhat enlarged fibroid uterus. Endometrium appears distended similar to; prior study and recent ultrasound. I cannot exclude endometrial hyperplasia or; malignancy.; ; 5. Tellez catheter.; ; ; Signed by; Stuart Manzo MD 11/26/2016 03:50 P; Radiology Order: CT Chest Without Contrast Test: CT Chest Without Contrast REASON FOR EXAMINATION: aspiration; CT study of the chest without contrast:; ; History: Aspiration. Comparison is made with today's chest x-ray.; ; CT findings: The lungs are symmetrically aerated. There is some subsegmental; bibasilar lower lobe plate-like atelectasis bilaterally. No other infiltrate is; appreciated. No pleural effusion or pericardial effusion is seen. There is; vascular calcification. 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 This is a normal variant. The thoracic; aorta is tortuous and normal in caliber. No extrathoracic mass or adenopathy is; seen. No pulmonary mass lesion is observed. Bone window settings demonstrate; diffuse degenerative disc disease. There is mild osteoporotic wedging in several; thoracic vertebrae. No bony destructive lesion is seen.; ; Impression:; ; Mild bilateral lower lobe discoid atelectasis. Cardiomegaly. Otherwise no; acute disease.; ; ; Signed by; Sutart Manzo MD 11/26/2016 03:49 P; Radiology Order: EKG-ADULT Test: EKG-ADULT REASON FOR EXAMINATION: Abdomen Pain; Stationary ECG Study; [facility]; ; Test Date: 2016-11-26; Pat Name: 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 Department:; Room: -; Gender: F Food Packer: lyle; : 1940 Requested By: Delaney Perez; Order Number: [id number] Reading MD: Delaney Perez; Measurements; Intervals [place]; Rate: 176 P:; VT: 0 QRS: 27; QRSD: 98 T: 214; QT: 248; QTc: 425; Interpretive Statements; SUPRAVENTRICULAR TACHYCARDIA, POSSIBLE ATRIAL FLUTTER; ST DEVIATION AND MODERATE T-WAVE ABNORMALITY, CONSIDER ANTEROLATERAL ISCHEMIA; ST DEVIATION AND MODERATE T-WAVE ABNORMALITY, CONSIDER INFERIOR ISCHEMIA; PRIOR SINUS TACHYCARDIA/ MORE PRONOUNCED ST CHANGES CLINICAL CORRELATION; Electronically Signed On 11-26-2016 19:34:02 EST by Delaney Perez; Outcome: 14:55 Decision to Hospitalize by Provider. sd1 11/27 16:38 Discharge Assessment: Patient awake, alert and oriented x 3. No cognitive and/or pml functional deficits noted. Patient verbalized understanding of disposition instructions. patient administered narcotics - no. The following High Risk Discharge criteria are identified: None. Admitted to ICU accompanied by nurse, accompanied by tech, via stretcher, on monitor, with chart. Condition: good. Admission hand-off: Report called to MATERIAL MANAGER. Property :Personal belongings accompany Pt. 16:40 CT Study completed. pml 16:41 Patient left the ED. pml Signatures: Dispatcher [employer] EDMS Delaney Perez MD MD sd1 Debbie Gautam, RN RN kmg1 Bonnie Rich, RN RN maria elena Ott , Tiffany RN Vandana Montiel,RN RN rafy3 Kath ChristineRN ADRIA stevenson3 James Jalloh, LAVONNE RAIL WALKER dd6 Kath Casillas RN RN amina4 Sylvia MusaRN RN pml Hannah John RN RN Rocio Mitchell JessicaRN RN duong6 Ailyn Grimm Tonya,RN RN tm5 Corrections: (The following items were deleted from the chart) 16:40 16:38 No special radiology studies were completed pml pml MTDD
[2016-11-27] MEDS: SERTRALINE 100 MG TAB PO SCH (21:00)
[2016-11-28] VITALS (7 sets, daily range): BP systolic 103–141; BP diastolic 57–73
[2016-11-28] MEDS: CEFEPIME HCL 1 GM in D5W MINI-BAG PLUS 50 ML IV SCH (00:46)
[2016-11-28 05:09] LABS: ANION GAP 7 MEQ/L (8-16); BLOOD UREA NITROGEN 15 MG/DL (7-18); CALCIUM LEVEL 7.9 MG/DL (8.8-10.2); CARBON DIOXIDE LEVEL 22 MEQ/L (21-32); CHLORIDE LEVEL 119 MEQ/L (98-107); CREATININE FOR GFR 0.66 MG/DL (0.55-1.02); GLOMERULAR FILTRATION RATE > 60.0 (>39); GLUCOSE, FASTING 92 MG/DL (83-110); POTASSIUM SERUM 4.1 MEQ/L (3.5-5.1); SODIUM LEVEL 148 MEQ/L (136-145)
[2016-11-28] MEDS: VANCOMYCIN ORAL SOL 250MG/5ML ORAL SYRINGE PO SCH ×2 (05:13→12:30)
[2016-11-28 05:36] LABS: MEAN CORPUSCULAR HEMOGLOBIN 29.6 pg (27.0-33.0); MEAN CORPUSCULAR HGB CONC 32.3 g/dl (32.0-36.5); MEAN CORPUSCULAR VOLUME 91.6 fl (80.0-96.0); RED CELL DISTRIBUTION WIDTH 13.4 % (11.5-14.5); WHITE BLOOD COUNT 13.1 K/mm3 (4.0-10.0)
[2016-11-28] MEDS: ACETAMINOPHEN 650MG ER TAB (TYLENOL ARTHRITIS) PO SCH ×2 (09:01→21:04)
--- NOTE | 2016-11-28 10:45 | IPNPDOC ---
Assessment/Plan Date Seen The patient was seen on 11/27/16. Problems Problems: (1) Sepsis Status: Acute Problem Text: due to UTI continue cefepime. (2) Dementia Status: Chronic Problem Text: patient a resident of [facility] living in [place] (3) Atrial flutter Status: Acute Problem Text: rate controlled (4) Aphasia Status: Chronic (5) UTI (urinary tract infection) Status: Acute Problem Text: continue cefepime (6) Diarrhea Status: Acute Problem Text: will treat empirically for c diff till we have a stool sample. Plan / VTE VTE Prophylaxis Ordered?: Yes Subjective Review of Systems CC/HPI The patient is a 76-year-old female admitted with a reason for visit of Sepsis. Events since last encounter patient awake and alert smiling sitting up in bed trying to read a book. blood pressure good this am. no bowel movements overnight. Had d/c 2 days ago . post procedure had a fever and also was sleepy after anesthesia. Was dced back to assisted living , did not have much oral intake over the past 2 days. and continued to have fever Objective Physical Examination General Exam: Positive: Alert, Cooperative, No Acute Distress Eye Exam: Positive: Conjunctiva & lids normal, EOMI, PERRLA, Negative: Sclera icteric ENT Exam: Positive: Atraumatic, Mucous membr. moist/pink, Pharynx Normal Chest Exam: Positive: Normal air movement, Rales Heart Exam: Positive: Irregular Rhythm, Normal S1, Normal S2 Telemetry: Positive: No significant arrhythmia Abdomen Exam: Positive: Normal bowel sounds, Soft, Negative: Hepatospenomegaly, Tenderness Extremity Exam: Positive: Normal pulses, Negative: Clubbing, Cyanosis, Edema Vital Signs/I&O Vital Signs Date Time Temp Pulse Resp B/P Pulse Ox O2 Delivery O2 Flow Rate FiO2 11/27/16 08:00 96.5 75 18 104/59 97 Nasal Cannula 2.0 I&O- Last 24 Hours up to 6 AM 11/27/16 06:00 Output Total 400 ml Balance -400 ml Laboratory Data Labs 24H Laboratory Tests 2 11/26/16 12:07: Aspartate Amino Transf (AST/SGOT) 83H, Alanine Aminotransferase (ALT/SGPT) 50, Alkaline Phosphatase 73, Total Bilirubin 0.5, Direct Bilirubin 0.1, Albumin 2.9L , Albumin/Globulin Ratio 0.83L, Amylase Level 16L, Anion Gap 10, Atypical Lymphocytes 3, Band Neutrophils 10, White Blood Count 28.5H, Red Blood Count 3.77L, Hemoglobin 11.6L, Hematocrit 34.1L, Mean Corpuscular Volume 90.5, Mean Corpuscular Hemoglobin 30.8, Mean Corpuscular Hemoglobin Concent 34.0, Red Cell Distribution Width 13.0, Platelet Count 139L, Neutrophils (%) (Auto) , Lymphocytes (%) (Auto) , Monocytes (%) (Auto) , Eosinophils (%) (Auto) , Basophils (%) (Auto) , Neutrophils # (Auto) , Lymphocytes # (Auto) , Monocytes # (Auto) , Eosinophils # (Auto) , Basophils # (Auto) , Calcium Level 8.5L, Glomerular Filtration Rate 36.2L, Lactic Acid Level 2.0, Large Unclassified Cells # , Large Unclassified Cells % , Lipase 42L, Monocytes (Manual) 3, Neutrophils 84H, Platelet Estimate NORMAL, Red Blood Cell Morphology NORMAL, Total Protein 6.4 11/26/16 12:50: Urine Amorphous Sediment MODERATEH, Urine Appearance CLOUDYH, Urine Color MARE , Urine pH 5.0, Urine Specific [place] 1.026, Urine Protein 2+H, Urine Glucose ( UA) NEGATIVE, Urine Ketones NEGATIVE, Urine Urobilinogen 0.2, Urine Bilirubin NEGATIVE, Urine Leukocyte Esterase NEGATIVE, Urine Bacteria (Auto) 1+H, Urine Blood 1+H, Urine Calcium Carbonate Cryst(Auto) , Urine Calcium Oxalate Cryst ( Auto) , Urine Calcium Phosphate Abi (Auto) , Urine Cellular Casts , Urine Cystine Crystals , Urine Granular Casts (Auto) 19, Urine Hyaline Casts (Auto) 6 , Urine Leucine Crystals , Urine Mucus (Auto) SMALL, Urine Nitrite POSITIVE, Urine Oval Fat Bodies (Auto) , Urine RBC (Auto) 4H, Urine Renal Epithelial Cells 1, Urine Sperm (Auto) , Urine Squamous Epithelial Cells 2, Urine Transitional Epithelial Cells 1, Urine Trichomonas (Auto) , Urine Triple Phosphate Cryst (Auto) , Urine Tyrosine Crystals , Urine Uric Acid Crystals ( Auto) , Urine WBC (Auto) 13H, Urine Waxy Casts (Auto) , Urine Yeast-Like Cells ( Auto) 11/26/16 19:29: Anion Gap 12, Calcium Level 7.5L, Glomerular Filtration Rate 43.2, Lactic Acid Level 1.6, Blood Urea Nitrogen 34H, Creatinine 1.28H, Sodium Level 145, Potassium Level 3.7, Chloride Level 113H, Carbon Dioxide Level 20L, Troponin I 0.11H 11/27/16 02:55: Anion Gap 11, Calcium Level 7.1L, Glomerular Filtration Rate 57.4, Blood Urea Nitrogen 33H, Creatinine 1.00, Sodium Level 147H, Potassium Level 3.4L, Chloride Level 114H, Carbon Dioxide Level 22, Troponin I 1.27#H 11/27/16 11:06: CBC/BMP Laboratory Tests 11/26/16 12:07 Red Blood Count 3.77 L, Mean Corpuscular Volume 90.5, Mean Corpuscular Hemoglobin 30.8, Mean Corpuscular Hemoglobin Concent 34.0, Red Cell Distribution Width 13.0, Neutrophils (%) (Auto) , Lymphocytes (%) (Auto) , Monocytes (%) (Auto) , Eosinophils (%) (Auto) , Basophils (%) (Auto) , Neutrophils # (Auto) , Lymphocytes # (Auto) , Monocytes # (Auto) , Eosinophils # (Auto) , Basophils # (Auto) 11/26/16 19:29 Red Blood Count 3.31 L, Mean Corpuscular Volume 91.8, Mean Corpuscular Hemoglobin 31.0, Mean Corpuscular Hemoglobin Concent 33.8, Red Cell Distribution Width 13.1, Calcium Level 7.5 L 11/27/16 02:55 Red Blood Count 3.09 L, Mean Corpuscular Volume 92.6, Mean Corpuscular Hemoglobin 31.2, Mean Corpuscular Hemoglobin Concent 33.7, Red Cell Distribution Width 13.2, Calcium Level 7.1 L Microbiology Microbiology 11/26/16 Blood Culture, Received Pending 11/26/16 Blood Culture, Received Pending 11/26/16 Urine Culture, Received Pending JERMEIAH PERAZA MD Nov 27, 2016 11:31
--- NOTE | 2016-11-28 10:53 | IPNPDOC ---
Assessment/Plan Date Seen The patient was seen on 11/28/16. Problems Problems: (1) Sepsis Status: Acute Problem Text: due to UTI Has ecoli pansensitive . will downgrade to ceftriaxone. (2) Dementia Status: Chronic Problem Text: patient a resident of [facility] living in [place] (3) Atrial flutter Status: Acute Problem Text: rate controlled (4) Aphasia Status: Chronic (5) UTI (urinary tract infection) Status: Acute Problem Text: continue ceftriaxone (6) Diarrhea Status: Acute Problem Text: will treat empirically for c diff till we have a stool sample. (7) Dysphagia Status: Chronic Problem Text: patient takes pureed food and honey thickened fluids at [facility] will get a speech and swallow evaluation Plan / VTE VTE Prophylaxis Ordered?: Yes Subjective Review of Systems CC/HPI The patient is a 76-year-old female admitted with a reason for visit of Sepsis. Events since last encounter no issues overnight , problem with swallowing retaining food and meds in the mouth . will get a speech and swallow eval. no fever or chills, no chest pain or shortness of breath. cooperative but non verbal. Objective Physical Examination General Exam: Positive: Alert, Cooperative, No Acute Distress Eye Exam: Positive: Conjunctiva & lids normal, EOMI, PERRLA, Negative: Sclera icteric ENT Exam: Positive: Atraumatic, Mucous membr. moist/pink, Pharynx Normal Chest Exam: Positive: Normal air movement, Rales Heart Exam: Positive: Irregular Rhythm, Normal S1, Normal S2 Telemetry: Positive: No significant arrhythmia Abdomen Exam: Positive: Normal bowel sounds, Soft, Negative: Hepatospenomegaly, Tenderness Extremity Exam: Positive: Normal pulses, Negative: Clubbing, Cyanosis, Edema Vital Signs/I&O Vital Signs Date Time Temp Pulse Resp B/P Pulse Ox O2 Delivery O2 Flow Rate FiO2 11/28/16 08:00 98.5 76 18 141/73 91 Room Air 11/27/16 08:00 2.0 I&O- Last 24 Hours up to 6 AM 11/28/16 05:59 Intake Total 1440 ml Output Total 1400 ml Balance 40 ml Laboratory Data Labs 24H Laboratory Tests 2 11/27/16 11:06: Troponin I 0.70#H 11/28/16 04:21: Anion Gap 7L, Blood Urea Nitrogen 15#, Creatinine 0.66, Sodium Level 148H, Potassium Level 4.1#, Chloride Level 119H, Carbon Dioxide Level 22, Calcium Level 7.9L, Glomerular Filtration Rate > 60.0 CBC/BMP Laboratory Tests 11/28/16 04:21 Calcium Level 7.9 L, Red Blood Count 3.19 L, Mean Corpuscular Volume 91.6, Mean Corpuscular Hemoglobin 29.6, Mean Corpuscular Hemoglobin Concent 32.3, Red Cell Distribution Width 13.4 Microbiology Microbiology 11/26/16 Blood Culture - Preliminary, Resulted No growth after 24 hours . All specim... 11/26/16 Blood Culture - Preliminary, Resulted No growth after 24 hours . All specim... 11/27/16 MRSA Screen, Received Pending 11/26/16 Urine Culture - Final, Complete Escherichia Coli JEREMIAH PERAZA MD Nov 28, 2016 10:53
[2016-11-28] MEDS: metroNIDAZOLE 500 MG in APPROPRIATE DILUENT 1 EA IV SCH (11:08)
[2016-11-28] MEDS: cefTRIAXone SOD 1 GM in D5W MINI-BAG PLUS 50 ML IV SCH (12:30)
[2016-11-28] MEDS: SERTRALINE 100 MG TAB PO SCH (21:04)
[2016-11-29 06:00] VITALS: BP 131/83
[2016-11-29 06:13] LABS: MEAN CORPUSCULAR HEMOGLOBIN 30.5 pg (27.0-33.0); MEAN CORPUSCULAR HGB CONC 33.2 g/dl (32.0-36.5); RED CELL DISTRIBUTION WIDTH 13.1 % (11.5-14.5); WHITE BLOOD COUNT 12.3 K/mm3 (4.0-10.0)
[2016-11-29 06:23] LABS: ANION GAP 9 MEQ/L (8-16); BLOOD UREA NITROGEN 8 MG/DL (7-18); CALCIUM LEVEL 8.3 MG/DL (8.8-10.2); CARBON DIOXIDE LEVEL 23 MEQ/L (21-32); CHLORIDE LEVEL 113 MEQ/L (98-107); CREATININE FOR GFR 0.63 MG/DL (0.55-1.02); GLOMERULAR FILTRATION RATE > 60.0 (>39); GLUCOSE, FASTING 86 MG/DL (83-110); POTASSIUM SERUM 3.8 MEQ/L (3.5-5.1); SODIUM LEVEL 145 MEQ/L (136-145)
[2016-11-29] MEDS: ACETAMINOPHEN 650MG ER TAB (TYLENOL ARTHRITIS) PO SCH ×2 (10:24→20:49)
--- NOTE | 2016-11-29 11:42 | IPNPDOC ---
Assessment/Plan Date Seen The patient was seen on 11/29/16. Problems Problems: (1) Sepsis Status: Resolved Problem Text: due to UTI Has ecoli pansensitive . will downgrade to ceftriaxone then will switch to levofloxacin on discharge. blood cultures negative. (2) Dementia Status: Chronic Problem Text: patient a resident of [facility] living in [place] patient will need half-way placement (3) Atrial flutter Status: Acute Problem Text: aflutter or SVT paroxysmal . now resolved. not anticoagulated as very short duration. Has dementia and tendency to falls. (4) Aphasia Status: Chronic (5) UTI (urinary tract infection) Status: Acute Problem Text: continue ceftriaxone change to po levofloxacin when ready for dc. (6) Diarrhea Status: Resolved Problem Text: gi panel negative stopped vancomycin. (7) Dysphagia Status: Chronic Problem Text: patient takes pureed food and honey thickened fluids at [facility] will get a speech and swallow evaluation Plan / VTE VTE Prophylaxis Ordered?: Yes Subjective Review of Systems CC/HPI The patient is a 76-year-old female admitted with a reason for visit of Sepsis. Events since last encounter no new issues, Objective Physical Examination General Exam: Positive: Alert, Cooperative, No Acute Distress Eye Exam: Positive: Conjunctiva & lids normal, EOMI, PERRLA, Negative: Sclera icteric ENT Exam: Positive: Atraumatic, Mucous membr. moist/pink, Pharynx Normal Chest Exam: Positive: Normal air movement, Rales Heart Exam: Positive: Irregular Rhythm, Normal S1, Normal S2 Telemetry: Positive: No significant arrhythmia Abdomen Exam: Positive: Normal bowel sounds, Soft, Negative: Hepatospenomegaly, Tenderness Extremity Exam: Positive: Normal pulses, Negative: Clubbing, Cyanosis, Edema Vital Signs/I&O Vital Signs Date Time Temp Pulse Resp B/P Pulse Ox O2 Delivery O2 Flow Rate FiO2 11/29/16 06:00 96.0 69 21 131/83 94 Room Air 11/27/16 08:00 2.0 I&O- Last 24 Hours up to 6 AM 11/29/16 05:59 Intake Total 680 ml Output Total 1620 ml Balance -940 ml Laboratory Data Labs 24H Laboratory Tests 2 11/29/16 05:35: Anion Gap 9, Blood Urea Nitrogen 8, Creatinine 0.63, Sodium Level 145, Potassium Level 3.8, Chloride Level 113H, Carbon Dioxide Level 23, Calcium Level 8.3L, Glomerular Filtration Rate > 60.0 CBC/BMP Laboratory Tests 11/29/16 05:35 Calcium Level 8.3 L, Red Blood Count 3.37 L, Mean Corpuscular Volume 92.0, Mean Corpuscular Hemoglobin 30.5, Mean Corpuscular Hemoglobin Concent 33.2, Red Cell Distribution Width 13.1 Microbiology Microbiology 11/26/16 Blood Culture - Preliminary, Resulted No Growth after 48 hours. All Specime... 11/26/16 Blood Culture - Preliminary, Resulted No Growth after 48 hours. All Specime... 11/28/16 Gastrointestinal Tract Panel (PCR) - Final, Complete 11/27/16 MRSA Screen - Final, Complete 11/26/16 Urine Culture - Final, Complete Escherichia Coli JEREMIAH PERAZA MD Nov 29, 2016 11:42
[2016-11-29] MEDS: cefTRIAXone SOD 1 GM in D5W MINI-BAG PLUS 50 ML IV SCH (12:00)
[2016-11-29 14:00] VITALS: BP 119/68
--- NOTE | 2016-11-29 17:42 | EDDOCDS ---
Nurse's Notes [facility] Name: Anjum Klein Age: 76 yrs Sex: Female : 1940 Arrival Date: 11/26/2016 Time: 11:30 Bed Admit Hold Private MD: Mai Valenzuela L Diagnosis: Sepsis, unspecified organism Presentation: 11/26 11:38 Presenting complaint: Daughter states that pt had D&C and LEEP procedure yesterday for jo3 abnormal vaginal discharge and dysplasia of cervix. Fever of 102 today. Pt has not returned to baseline responsiveness since the surgery. Sent home by Dr Valenzuela yesterday under the assumption that pt would return to baseline. Adult Sepsis Screening: Patient has new or worsening altered mentation (1 point). Patient's respiratory rate is less than 22. Systolic blood pressure is greater than 100. Patient has a qSOFA score of 0- Negative Sepsis Screen. Suicide/Homicide risk assessment- the patient denies having any suicidal and/or homicidal ideations and does not present with any other emotional, behavioral or mental health complaints. Status: Patient is not a electromedical service engineer or dependent. Transition of care: patient was not received from another setting of care. 11:38 Acuity: CRIS Level 3 jo3 11:38 Method Of Arrival: Walkin/Carried/Asstd jo3 Triage Assessment: 11:44 General: Appears in no apparent distress, uncomfortable, Behavior is quiet. jo3 Neurological: Level of Consciousness is awake. Derm: Skin is pink, warm & dry. Historical: - Allergies: Demerol; Codeine Sulfate; - Home Meds: 1. Namenda XR 28 mg oral CSpX 1 cap once daily 2. refresh eye drops twice daily 3. Arthritis Pain Relief 650 mg twice daily 4. 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 No barriers to communication noted, The patient speaks fluent Danish, Speaks appropriately for age. - Family history: Not pertinent. - : The pt / caregiver states he / she is not on anticoagulants. Home medication list is obtained from family members. - Exposure Risk Screening:: None identified. Screenin:41 Screening information is obtained from family members. Fall risk: At risk due to jc4 apparent cognitive impairment, The following interventions are performed due to a positive Fall Risk Screen: Fall Risk is added to Special Handling on the patient Summary Screen. A Fall Risk Bracelet was applied to the patient. Side Rails are placed in the up position. A Call Worrell is given with instruction to call for help when getting out of bed. Assistance ADL's: Requires assistance with meal preparation, this assistance is provided by family members, bathing, assistance is provided by family members, dressing, assistance is provided by family members, toileting, assistance is provided by family members, ambulation, assistance is provided by family members, housework, assistance is provided by family members, medication administration, assistance is provided by family members. Abuse/DV Screen: The patient / caregiver reports he/she is: pt cannot be assessed for living situation at this time. Nutritional screening: diarrhea for the past few days, has been vomiting since procedure. Advance Directives: There is an active DNR order and the pt has a copy here at this time. home support is adequate. Assessment: 13:19 General: Appears ill, Behavior is eyes open, smiling. No verbal response which daughter trevor states is baseline mental status. Pain: Unable to use pain scale. Neurological: Level of Consciousness is awake. EENT: Oral mucosa is dry. Cardiovascular: Rhythm is sinus tachycardia No ectopy. Respiratory: Airway is patent Respiratory effort is unlabored, Respiratory pattern is regular, tachypnea Breath sounds are clear bilaterally. GI: Abdomen is non- distended Bowel sounds present X 4 quads. Abd is soft and non tender X 4 quads. : Urine is light tea colored. Tellez catheter in place. Derm: Skin is dry, Skin is flushed, Skin temperature is hot. 13:30 General: Bruising and swelling noted to left hand, daughter states that pt had IV jc4 placed in hand yesterday. 14:39 General: Pt with eyes closed on stretcher. Color pink, skin warm and dry. Pt opens jc4 eyes, non-verbal. Respirations 36/minute, breath sounds are clear. SaO2-91%, patient placed on 2 liters nasal canula. Daughter at bedside, supportive and loving. . 15:38 General: Pt lying on stretcher. No distress noted. Color pink, skin warm and dry. jc4 Respirations easy, resp 32/minute. Lungs clear. IVF bolus continuing. Daughter inquiring regarding pathology results. Dr. Perez consulted. 15:45 General: Pt lying on stretcher with eyes closed. Respirations 36/minute, SaO2-94% on 2 jc4 liters nasal canula. Heart rate 180 bpm, narrow complex tachycardia. Dr. Perez notified. 16:02 General: Swabs given for oral care. Daughter assisting in care, who is loving and jc4 supportive. 16:31 General: Dr. Valenzuela in to examine patient, and speak with family. jc4 16:33 General: Pt with eyes open. Non-verbal. Color pink, skin warm and dry. Respirations jc4 32/minute. 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 Pt maintained on 2 liters nasal canula. IVF infusing well, site clear. 16:38 General: Lungs clear. Respirations 32/minute, SaO2-95% on 2 liters nasal canula. IVF jc4 bolus continued, site clear. 17:54 General: Daughter, son and [id number] at the bedside. Pt's MOLST form reviewed jc4 with them per their request. Pt with eyes closed on stretcher. Color pink, skin warm and dry. Respirations 32/minute. 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 IVF infusing well, site clear. Pt has been placed on bedpan as daughter felt she looked uncomfortable, but patient did not have BM. 18:24 General: Dr. Zapata in to examine patient and speak with family. jc4 19:17 General: Appears ill, Behavior is non-verbal pt which per daughter is pt's baseline, pt tm5 smiles at this RN while providing care . Pain: Unable to use pain scale. pt is non-verbal. Neurological: Level of Consciousness is awake. Cardiovascular: Rhythm is sinus tachycardia No ectopy. Respiratory: Airway is patent Respiratory effort is even, unlabored, Respiratory pattern is regular, Breath sounds are clear bilaterally. GI: Abdomen is non- distended Bowel sounds present X 4 quads. Abd is soft and non tender X 4 quads. Derm: Skin is pink, warm & dry. normal. 19:31 General: JERSEY KNITTER AT BEDSIDE, ADMISSION LABS DRAWN . tm5 20:19 Reassessment: Patient appears in no apparent distress at this time. Patient states tm5 symptoms have improved. pt was repositioned to her left side by family & this RN, pt appears to be in no distress, Heart rate has decreased to Sinus rhythm after repositioning pt . Cardiovascular: Rhythm is sinus rhythm No ectopy. 21:08 Reassessment: Patient appears in no apparent distress at this time. pt is more alert at tm5 this time, daughter is doing mouth care on pt right now, no s/s of any distress. Cardiovascular: Rhythm is sinus rhythm No ectopy. 22:30 General: pt placed in hospital bed & placed in Rm 21 for Hold admission . tm5 11/27 07:28 General: Appears uncomfortable, Behavior is appropriate for age, cooperative. pml Neurological: Level of Consciousness is awake, alert, obeys commands. Cardiovascular: Capillary refill < 3 seconds Rhythm is sinus rhythm No ectopy. Respiratory: Airway is patent Respiratory effort is even, unlabored. GI: Abdomen is non- distended. Derm: Skin is pink, warm & dry. 09:34 General: pt awake and alert, obeying commands, tolerating sips of pudding thick pml cranberry juice without difficulty. answers questions with one word answers appropriately. family at bedside. 12:00 General: Appears in no apparent distress, comfortable, Behavior is appropriate for age, pml cooperative. Pain: Denies pain. Neurological: Level of Consciousness is awake, alert. Cardiovascular: Capillary refill < 3 seconds. Cardiovascular: Rhythm is sinus rhythm No ectopy. Respiratory: Airway is patent Respiratory effort is even, unlabored. Derm: Skin is pink, warm & dry. 16:38 General: Appears in no apparent distress, Behavior is appropriate for age, cooperative. pml Pain: Denies pain. Neurological: Level of Consciousness is awake, alert, obeys commands. Cardiovascular: Capillary refill < 3 seconds Rhythm is sinus rhythm No ectopy. Respiratory: Airway is patent Respiratory effort is even, unlabored. GI: Abdomen is non- distended. Derm: Skin is pink, warm & dry. Vital Signs: 11/26 11:33 BP 133 / 103; Pulse 124; Resp 18 S; Temp 98.8; Pulse Ox 95% on R/A; dd6 11:55 BP 97 / 61 (auto/); jc4 11:56 Temp 101.8(O); nb2 11:56 Pulse 122 MON; Pulse Ox 92% ; jc4 12:56 Pulse Ox 94% ; jc4 13:01 Weight 68.04 kg (R); Height 5 ft. 2 in. (157.48 cm) (R); jc4 13:01 BP 89 / 55 (auto/); jc4 13:17 BP 91 / 56 (auto/); jc4 13:18 Pulse 110 MON; Pulse Ox 93% ; jc4 13:21 Resp 32 S; Pulse Ox 93% on R/A; jc4 13:40 Pulse 112 MON; Pulse Ox 92% ; jc4 13:47 BP 88 / 54 (auto/); jc4 14:17 BP 87 / 60 (auto/); Resp 36 S; jc4 14:19 Pulse 108 MON; Pulse Ox 94% ; jc4 14:39 Temp 99.3(A); jc4 14:47 BP 85 / 50 (auto/); jc4 14:48 Pulse 104 MON; Pulse Ox 95% ; jc4 15:17 BP 87 / 53 (auto/); jc4 15:17 Pulse 98 MON; Pulse Ox 95% ; jc4 15:24 Pulse 98 MON; Pulse Ox 96% ; jc4 15:25 BP 88 / 53 (auto/); jc4 15:57 Pulse 176 MON; Pulse Ox 95% ; jc4 15:58 BP 83 / 52 (auto/); jc4 16:02 BP 83 / 51 (auto/); jc4 16:02 Pulse 176 MON; Pulse Ox 96% ; jc4 16:17 BP 77 / 52 (auto/); jc4 16:17 Pulse 180 MON; Pulse Ox 96% ; jc4 16:32 BP 82 / 56 (auto/); jc4 16:32 Pulse 184 MON; Pulse Ox 95% ; jc4 16:47 BP 78 / 48 (auto/); jc4 16:47 Pulse 180 MON; Pulse Ox 96% ; jc4 17:00 Pulse 176 MON; Pulse Ox 95% ; jc4 17:02 BP 74 / 57 (auto/); jc4 17:17 BP 86 / 53 (auto/); jc4 17:24 Pulse 166 MON; Pulse Ox 96% ; jc4 17:32 BP 90 / 51 (auto/); jc4 17:32 Pulse 166 MON; Pulse Ox 95% ; jc4 17:47 BP 83 / 50 (auto/); jc4 17:47 Pulse 168 MON; Pulse Ox 95% ; jc4 18:02 BP 81 / 50 (auto/); jc4 18:02 Pulse 162 MON; Pulse Ox 95% ; jc4 18:17 BP 74 / 46 (auto/); jc4 18:17 Pulse 162 MON; Pulse Ox 94% ; jc4 18:32 BP 76 / 49 (auto/); jc4 18:33 Pulse 160 MON; Pulse Ox 94% ; jc4 18:33 Resp 32 S; jc4 18:47 BP 80 / 51 (auto/); jc4 18:49 Pulse 164 MON; Pulse Ox 96% ; jc4 19:17 BP 82 / 50; Pulse 158; Resp 22; Temp 97.8(A); Pulse Ox 96% on 2 lpm NC; Pain 0/10; tm5 20:19 BP 74 / 39; Pulse 92; Resp 20; Pulse Ox 96% on 2 lpm NC; tm5 21:08 BP 104 / 63; Pulse 67; Resp 18; Pulse Ox 96% on 2 lpm NC; tm5 11/27 16:38 BP 126 / 69; Pulse 75; Resp 18; Temp 98.2; Pulse Ox 94% on R/A; pml 11/26 13:01 Body Mass Index 27.44 (68.04 kg, 157.48 cm) [facility] Vitals: 11/26 11:33 Log In Time: November 26, 2016 at 11:31. dd6 ED Course: 11:32 Patient visited by James Jalloh PCA. dd6 11:32 Patient moved to Waiting dd6 11:33 Mai Valenzuela is Private Physician. dd6 11:34 Patient moved to Pre RCE dd6 11:42 Triage Initiated jo3 11:43 Kath Casillas RN is Primary Nurse. ttb 11:43 Jeniffer Barraza RN is Primary Nurse. ttb 11:43 Patient moved to 17 ttb 11:45 Patient visited by Kath Christine RN. jo3 11:56 Patient visited by Ailyn Grimm. nb2 11:56 Placed in gown. Bed in low position. Call light in reach. Side rails up X2. Cardiac nb2 monitor on. Pulse ox on. NIBP on. 12:03 Delaney Perez MD is Attending Physician. sd1 12:05 Patient visited by Delaney Perez MD. sd1 12:55 Inserted saline lock: 20 gauge in left antecubital area The patient tolerated the jc4 procedure well. 12:57 DIFFERENTIAL NO CHARGE Sent. jc4 12:58 Urine Culture Sent. jc4 12:58 UA Sent. jc4 12:58 Tellez cath inserted 16 Fr. Balloon inflated. To gravity drainage. Urine specimen jc4 collected. Patient tolerated well. 13:19 The patient / caregiver is instructed regarding the plan of care and ED course. jc4 13:21 Patient visited by Kath Casillas, ADRIA. jc4 14:27 Patient visited by Kath Casillas RN. jc4 14:36 Chest, 1 View Returned. EDMS 14:42 EKG done. (by ED staff). Reviewed by Delaney Perez MD. nb2 14:43 Patient visited by Ailyn Grimm. nb2 14:55 Santo Broderick is Hospitalizing Provider. sd1 15:25 CT Chest Without Contrast Returned. EDMS 15:25 CT ABD & PELVIS: No Contrast Returned. EDMS 15:43 [facility] Payment Agreement was scanned into [employer] and attached to record. gjb 15:53 EKG done. (by ED staff). Reviewed by Delaney Perez MD. nb2 16:03 Patient visited by Ailyn Grimm. nb2 19:07 Patient moved to Admit Hold daq 19:11 Patient visited by Ann-Marie Lopez,ADRIA. tm5 19:11 Report received from Mariangel Dixon RN, assumed care of pt at this time. tm5 19:12 Awaiting bed assignment. tm5 19:17 Patient visited by Ann-Marie Lopez,ADRIA. tm5 19:31 Patient visited by Ann-Marie Lopez,ADRIA. tm5 19:43 EKG-ADULT Returned. EDMS 19:43 EKG-ADULT Returned. EDMS 20:24 Patient visited by Ann-Marie Lopez RN. tm5 20:24 family notified that pt will be a holding pt in the ER due to no admission beds in the [address], family is understanding of this . 21:48 Primary Nurse role handed off by Jeniffer Barraza,ADRIA jp6 22:29 Patient visited by Ann-Marie Lopez RN. tm5 22:30 Patient moved to 21 [facility] 22:45 Primary Nurse role handed off by Kath Casillas RN [facility] 11/27 03:47 Patient moved to Admit Hold kmg1 07:28 Patient visited by Sylvia Musa,ADRIA. pml 09:35 Patient visited by Sylvia Musa,ADRIA. pml 12:00 Patient visited by Sylvia Musa,ADRIA. pml 16:38 No procedures done that require assistance. pml 11/28 19:24 Trend VS was scanned into [employer] and attached to record. kf3 Administered Medications: 11/26 12:50 Drug: Acetaminophen 650 mg [acetaminophen 650 mg rectal suppository (1 supp)] Route: AL;jc4 14:39 Follow up: Temp 99.3 Axillary jc4 12:57 Drug: NS 0.9% 1000 ml [sodium chloride 0.9 % intravenous solution] Route: IV; Rate: 150 jc4 mL/hr; Site: left antecubital; 13:18 Drug: Cefepime 2 grams [cefepime 2 gram solution for injection] Route: IVPB; Rate: 100 jc4 mL/hr; Infused Over: 30 mins; Site: left antecubital; 13:55 Follow up: IV Status: Completed infusion kr3 13:18 Drug: NS 0.9% (Sepsis- hypotension or lactate >4mmol/L, 30ml/kg) 2041.2 ml [sodium jc4 chloride 0.9 % intravenous solution] Route: IV; Rate: bolus; Site: left antecubital; 16:23 Drug: Digoxin 0.5 mg [digoxin 250 mcg/mL injection solution (2 mL)] Route: IVP; Site: jc4 left antecubital; 19:10 Follow up: Response: No Adverse Reaction tm5 16:31 Drug: vancomycin 125 mg Route: PO; jc4 19:10 Follow up: Response: No Adverse Reaction tm5 Attachments: 11/28 19:24 Trend VS kf3 Intake: 11/26 14:30 IV: 500.00ml (NS); Total: 500.00ml. jc4 15:38 IV: 500.00ml (NS); Total: 1000.00ml. jc4 16:39 IV: 500.00ml (NS); Total: 1500.00ml. jc4 18:23 IV: 500.00ml (NS); Total: 2000.00ml. jc4 Order Results: Lab Order: Amylase; SPEC'M 11/26/16 12:07 Test: AMYLASE; Value: 16; Range: 25-115; Abnormal: Below low normal; Units: U/L; Status: F Lab Order: Basic Metabolic Profile; SPEC'M 11/26/16 12:07 Test: GLUCOSE, FASTING; Value: 117; Range: 83-110; Abnormal: Above high normal; Units: MG/DL; Status: F Test: BLOOD UREA NITROGEN; Value: 28; Range: 7-18; Abnormal: Above high normal; Units: MG/DL; Status: F Test: CREATININE FOR GFR; Value: 1.49; Range: 0.55-1.02; Abnormal: Above high normal; Units: MG/DL; Status: F Test: GLOMERULAR FILTRATION RATE; Value: 36.2; Range: >39; Abnormal: Below low normal; Status: F Test: SODIUM LEVEL; Value: 141; Range: 136-145; Units: MEQ/L; Status: F Test: POTASSIUM SERUM; Value: 3.3; Range: 3.5-5.1; Abnormal: Below low normal; Units: MEQ/L; Status: F Test: CHLORIDE LEVEL; Value: 108; Range: 98-107; Abnormal: Above high normal; Units: MEQ/L; Status: F Test: CARBON DIOXIDE LEVEL; Value: 23; Range: 21-32; Units: MEQ/L; Status: F Test: ANION GAP; Value: 10; Range: 8-16; Units: MEQ/L; Status: F Test: CALCIUM LEVEL; Value: 8.5; Range: 8.8-10.2; Abnormal: Below low normal; Units: MG/DL; Status: F Test Note: ; Units are mL/min/1.73 m2 Chronic Kidney Disease Staging per NKF: Stage I & II GFR >=60 Normal to Mildly Decreased Stage III GFR 30-59 Moderately Decreased Stage IV GFR 15-29 Severely Decreased Stage V GFR <15 Very Little GFR Left ESRD GFR <15 on FIRE CONTROL SYSTEM INSTALLER Lab Order: CBC with Diff; SPEC'M 11/26/16 12:07 Test: WHITE BLOOD COUNT; Value: 28.5; Range: 4.0-10.0; Abnormal: Above high normal; Units: K/mm3; Status: F Test: RED BLOOD COUNT; Value: 3.77; Range: 4.00-5.40; Abnormal: Below low normal; Units: M/mm3; Status: F Test: HEMOGLOBIN; Value: 11.6; Range: 12.0-16.0; Abnormal: Below low normal; Units: g/dl; Status: F Test: HEMATOCRIT; Value: 34.1; Range: 36.0-47.0; Abnormal: Below low normal; Units: %; Status: F Test: MEAN CORPUSCULAR VOLUME; Value: 90.5; Range: 80.0-96.0; Units: fl; Status: F Test: MEAN CORPUSCULAR HEMOGLOBIN; Value: 30.8; Range: 27.0-33.0; Units: pg; Status: F Test: MEAN CORPUSCULAR HGB CONC; Value: 34.0; Range: 32.0-36.5; Units: g/dl; Status: F Test: RED CELL DISTRIBUTION WIDTH; Value: 13.0; Range: 11.5-14.5; Units: %; Status: F Test: PLATELET COUNT, AUTOMATED; Value: 139; Range: 150-450; Abnormal: Below low normal; Units: k/mm3; Status: F Test: NEUTROPHILS; Value: 84; Range: 35-75; Abnormal: Above high normal; Units: %; Status: F Test: BANDS; Value: 10; Range: < 11; Units: %; Status: F Test: MONOCYTES; Value: 3; Range: 0-8; Units: %; Status: F Test: ATYPICAL LYMPH; Value: 3; Range: 0-5; Units: %; Status: F Test: RBC MORPHOLOGY; Value: NORMAL; Status: F Lab Order: Lipase; SPEC'M 11/26/16 12:07 Test: LIPASE; Value: 42; Range: 73-393; Abnormal: Below low normal; Units: U/L; Status: F Lab Order: Liver Profile; SPEC'M 11/26/16 12:07 Test: AST/SGOT; Value: 83; Range: 15-37; Abnormal: Above high normal; Units: U/L; Status: F Test: ALT/SGPT; Value: 50; Range: 12-78; Units: U/L; Status: F Test: ALKALINE PHOSPHATASE; Value: 73; Range: 45-117; Units: U/L; Status: F Test: BILIRUBIN,TOTAL; Value: 0.5; Range: 0.2-1.0; Units: MG/DL; Status: F Test: BILIRUBIN,DIRECT; Value: 0.1; Range: 0.0-0.2; Units: MG/DL; Status: F Test: TOTAL PROTEIN; Value: 6.4; Range: 6.4-8.2; Units: GM/DL; Status: F Test: ALBUMIN; Value: 2.9; Range: 3.2-5.2; Abnormal: Below low normal; Units: GM/DL; Status: F Test: ALBUMIN/GLOBULIN RATIO; Value: 0.83; Range: 1.00-1.93; Abnormal: Below low normal; Status: F Lab Order: Lactic Acid (Murillo tube on ice); SPEC'M 11/26/16 12:07 Test: LACTIC ACID LEVEL, LACTATE; Value: 2.0; Range: 0.4-2.0; Units: MMOL/L; Status: F Lab Order: -Blood Culture; SPEC'M 11/26/16 12:06 Test: BLOOD CULTURE; Value: No growth after 24 hours . All specimens observed; Status: F Test: BLOOD CULTURE; Value: for 7 days. Results final at that time.; Status: F Lab Order: UA; SPEC'M 11/26/16 12:50 Test: APPEARANCE, URINE; Value: CLOUDY; Range: CLEAR; Abnormal: Above high normal; Status: F Test: COLOR, URINE; Value: MARE; Range: YELLOW; Status: F Test: PH,URINE; Value: 5.0; Range: 5.0-9.0; Units: UNITS; Status: F Test: SPECIFIC GRAVITY URINE AUTO; Value: 1.026; Range: 1.002-1.035; Status: F Test: PROTEIN, URINE AUTO; Value: 2+; Range: NEGATIVE; Abnormal: Above high normal; Units: mg/dL; Status: F Test: GLUCOSE, URINE (UA) AUTO; Value: NEGATIVE; Range: NEGATIVE; Units: mg/dL; Status: F Test: KETONE, URINE AUTO; Value: NEGATIVE; Range: NEGATIVE; Units: mg/dL; Status: F Test: UROBILINOGEN, URINE AUTO; Value: 0.2; Range: 0.0-2.0; Units: mg/dL; Status: F Test: BILIRUBIN, URINE AUTO; Value: NEGATIVE; Range: NEGATIVE; Status: F Test: NITRITE, URINE AUTO; Value: POSITIVE; Range: NEGATIVE; Status: F Test: LEUKOCYTE ESTERASE, URINE AUTO; Value: NEGATIVE; Range: NEGATIVE; Status: F Test: BLOOD, URINE BLOOD; Value: 1+; Range: NEGATIVE; Abnormal: Above high normal; Status: F Test: WBC, URINE AUTO; Value: 13; Range: 0-3; Abnormal: Above high normal; Units: /HPF; Status: F Test: RBC, URINE AUTO; Value: 4; Range: 0-3; Abnormal: Above high normal; Units: /HPF; Status: F Test: BACTERIA, URINE AUTO; Value: 1+; Range: NEGATIVE; Abnormal: Above high normal; Status: F Test: SQUAMOUS EPITHELIAL CELL UR AU; Value: 2; Range: 0-6; Units: /HPF; Status: F Test: TRANSITIONAL EPITHELIAL AUTO; Value: 1; Range: NONE; Units: /HPF; Status: F Test: RENAL EPITHELIAL CELLS; Value: 1; Range: NONE; Units: /HPF; Status: F Test: MUCUS, URINE; Value: SMALL; Range: NEGATIVE; Status: F Test: HYALINE CAST, URINE AUTO; Value: 6; Range: 0-1; Units: /LPF; Status: F Test: GRANULAR CAST, URINE AUTO; Value: 19; Range: NONE; Units: /LPF; Status: F Test: AMORPHOUS SEDIMENT; Value: MODERATE; Range: NEGATIVE; Abnormal: Above high normal; Status: F Lab Order: PLATELET ESTIMATE; SPEC'M 11/26/16 12:07 Test: PLATELET ESTIMATE; Value: NORMAL; Range: NORMAL; Status: F Lab Order: BLOOD CULTURES; SPEC'M 11/26/16 12:28 Test: BLOOD CULTURE; Value: No growth after 24 hours . All specimens observed; Status: F Test: BLOOD CULTURE; Value: for 7 days. Results final at that time.; Status: F Lab Order: TROPONIN; SPEC'M 11/26/16: Test: TROPONIN I; Value: 0.11; Range: < 0.10; Abnormal: Above high normal; Units: NG/ML; Status: F Test Note: ; Troponin I Reference Interval for [facility] LOCI: 99th Percentile= 0.00-0.045 ng/ml Risk Stratification: <= 0.10 ng/ml Decreased Risk for Adverse Clinical Events. 0.10-1.50 ng/ml Increased Risk for Adverse Clinical Events. Evaluation of additional criterion and/or repeat testing in 2-6 hours is suggested to rule out myocardial damage. >= 1.50 ng/ml Indicative of Myocardial Injury. Lab Order: LACTIC ACID LEVEL, LACTATE; SPEC' 11/26/16: Test: LACTIC ACID LEVEL, LACTATE; Value: 1.6; Range: 0.4-2.0; Units: MMOL/L; Status: F Lab Order: COMPLETE BLOOD COUNT; SPEC' 11/26/16 Test: WHITE BLOOD COUNT; Value: 26.4; Range: 4.0-10.0; Abnormal: Above high normal; Units: K/mm3; Status: F Test: RED BLOOD COUNT; Value: 3.31; Range: 4.00-5.40; Abnormal: Below low normal; Units: M/mm3; Status: F Test: HEMOGLOBIN; Value: 10.3; Range: 12.0-16.0; Abnormal: Below low normal; Units: g/dl; Status: F Test: HEMATOCRIT; Value: 30.4; Range: 36.0-47.0; Abnormal: Below low normal; Units: %; Status: F Test: MEAN CORPUSCULAR VOLUME; Value: 91.8; Range: 80.0-96.0; Units: fl; Status: F Test: MEAN CORPUSCULAR HEMOGLOBIN; Value: 31.0; Range: 27.0-33.0; Units: pg; Status: F Test: MEAN CORPUSCULAR HGB CONC; Value: 33.8; Range: 32.0-36.5; Units: g/dl; Status: F Test: RED CELL DISTRIBUTION WIDTH; Value: 13.1; Range: 11.5-14.5; Units: %; Status: F Test: PLATELET COUNT, AUTOMATED; Value: 114; Range: 150-450; Abnormal: Below low normal; Units: k/mm3; Status: F Lab Order: BASIC METABOLIC PROFILE; SPECM 11/26/16 19:29 Test: GLUCOSE, FASTING; Value: 105; Range: 83-110; Units: MG/DL; Status: F Test: BLOOD UREA NITROGEN; Value: 34; Range: 7-18; Abnormal: Above high normal; Units: MG/DL; Status: F Test: CREATININE FOR GFR; Value: 1.28; Range: 0.55-1.02; Abnormal: Above high normal; Units: MG/DL; Status: F Test: GLOMERULAR FILTRATION RATE; Value: 43.2; Range: >39; Status: F Test: SODIUM LEVEL; Value: 145; Range: 136-145; Units: MEQ/L; Status: F Test: POTASSIUM SERUM; Value: 3.7; Range: 3.5-5.1; Units: MEQ/L; Status: F Test: CHLORIDE LEVEL; Value: 113; Range: 98-107; Abnormal: Above high normal; Units: MEQ/L; Status: F Test: CARBON DIOXIDE LEVEL; Value: 20; Range: 21-32; Abnormal: Below low normal; Units: MEQ/L; Status: F Test: ANION GAP; Value: 12; Range: 8-16; Units: MEQ/L; Status: F Test: CALCIUM LEVEL; Value: 7.5; Range: 8.8-10.2; Abnormal: Below low normal; Units: MG/DL; Status: F Test Note: ; Units are mL/min/1.73 m2 Chronic Kidney Disease Staging per NKF: Stage I & II GFR >=60 Normal to Mildly Decreased Stage III GFR 30-59 Moderately Decreased Stage IV GFR 15-29 Severely Decreased Stage V GFR <15 Very Little GFR Left ESRD GFR <15 on FIRE CONTROL SYSTEM INSTALLER Lab Order: TROPONIN; SPEC'M 11/27/16 02:55 Test: TROPONIN I; Value: 1.27; Range: < 0.10; Abnormal: High; Units: NG/ML; Status: F Test Note: ; Troponin I Reference Interval for [employer] LOCI: 99th Percentile= 0.00-0.045 ng/ml Risk Stratification: <= 0.10 ng/ml Decreased Risk for Adverse Clinical Events. 0.10-1.50 ng/ml Increased Risk for Adverse Clinical Events. Evaluation of additional criterion and/or repeat testing in 2-6 hours is suggested to rule out myocardial damage. >= 1.50 ng/ml Indicative of Myocardial Injury. Lab Order: TROPONIN; SPEC'M 11/27/16 11:06 Test: TROPONIN I; Value: 0.70; Range: < 0.10; Abnormal: High; Units: NG/ML; Status: F Test Note: ; Troponin I Reference Interval for [employer] [facility] LOCI: 99th Percentile= 0.00-0.045 ng/ml Risk Stratification: <= 0.10 ng/ml Decreased Risk for Adverse Clinical Events. 0.10-1.50 ng/ml Increased Risk for Adverse Clinical Events. Evaluation of additional criterion and/or repeat testing in 2-6 hours is suggested to rule out myocardial damage. >= 1.50 ng/ml Indicative of Myocardial Injury. Lab Order: BASIC METABOLIC PROFILE; SPEC'M 11/27/16 02:55 Test: GLUCOSE, FASTING; Value: 100; Range: 83-110; Units: MG/DL; Status: F Test: BLOOD UREA NITROGEN; Value: 33; Range: 7-18; Abnormal: Above high normal; Units: MG/DL; Status: F Test: CREATININE FOR GFR; Value: 1.00; Range: 0.55-1.02; Units: MG/DL; Status: F Test: GLOMERULAR FILTRATION RATE; Value: 57.4; Range: >39; Status: F Test: SODIUM LEVEL; Value: 147; Range: 136-145; Abnormal: Above high normal; Units: MEQ/L; Status: F Test: POTASSIUM SERUM; Value: 3.4; Range: 3.5-5.1; Abnormal: Below low normal; Units: MEQ/L; Status: F Test: CHLORIDE LEVEL; Value: 114; Range: 98-107; Abnormal: Above high normal; Units: MEQ/L; Status: F Test: CARBON DIOXIDE LEVEL; Value: 22; Range: 21-32; Units: MEQ/L; Status: F Test: ANION GAP; Value: 11; Range: 8-16; Units: MEQ/L; Status: F Test: CALCIUM LEVEL; Value: 7.1; Range: 8.8-10.2; Abnormal: Below low normal; Units: MG/DL; Status: F Test Note: ; Units are mL/min/1.73 m2 Chronic Kidney Disease Staging per NKF: Stage I & II GFR >=60 Normal to Mildly Decreased Stage III GFR 30-59 Moderately Decreased Stage IV GFR 15-29 Severely Decreased Stage V GFR <15 Very Little GFR Left ESRD GFR <15 on FIRE CONTROL SYSTEM INSTALLER Lab Order: COMPLETE BLOOD COUNT; SPEC'M 11/27/16 02:55 Test: WHITE BLOOD COUNT; Value: 20.7; Range: 4.0-10.0; Abnormal: Above high normal; Units: K/mm3; Status: F Test: RED BLOOD COUNT; Value: 3.09; Range: 4.00-5.40; Abnormal: Below low normal; Units: M/mm3; Status: F Test: HEMOGLOBIN; Value: 9.6; Range: 12.0-16.0; Abnormal: Below low normal; Units: g/dl; Status: F Test: HEMATOCRIT; Value: 28.6; Range: 36.0-47.0; Abnormal: Below low normal; Units: %; Status: F Test: MEAN CORPUSCULAR VOLUME; Value: 92.6; Range: 80.0-96.0; Units: fl; Status: F Test: MEAN CORPUSCULAR HEMOGLOBIN; Value: 31.2; Range: 27.0-33.0; Units: pg; Status: F Test: MEAN CORPUSCULAR HGB CONC; Value: 33.7; Range: 32.0-36.5; Units: g/dl; Status: F Test: RED CELL DISTRIBUTION WIDTH; Value: 13.2; Range: 11.5-14.5; Units: %; Status: F Test: PLATELET COUNT, AUTOMATED; Value: 111; Range: 150-450; Abnormal: Below low normal; Units: k/mm3; Status: F Radiology Order: Chest, 1 View Test: Chest, 1 View REASON FOR EXAMINATION: fever; PORTABLE CHEST; ; AP portable view of the chest is performed and compared to a prior study of; 07/03/2014.; ; There is poor ventilation with crowded lung markings in each lung base. No; infiltrate is seen. The cardiomediastinal silhouette appears mildly magnified.; ; IMPRESSION:; ; No definite acute infiltrate.; ; ; Signed by; Hunter Murillo MD 11/26/2016 04:28 P; Radiology Order: CT ABD & PELVIS: No Contrast Test: CT ABD & PELVIS: No Contrast REASON FOR EXAMINATION: Abdomen Pain; CT STUDY OF THE ABDOMEN AND PELVIS WITHOUT IV OR ORAL CONTRAST:; ; HISTORY: Aspiration. Abdominal pain.; ; Comparison CT study September 09, 2016.; ; FINDINGS: There are multiple low-density areas in this liver consistent with; hepatic cysts unchanged from the comparison study. No focal splenic lesion is; seen. There are however several small accessory splenules. The gallbladder is; mildly distended. It is homogeneous. There is a large cyst occupying the lower; pole left kidney. This measures 11.5 cm in AP dimension today, previously 10.7; cm on September 09, 2016. It is slightly larger. No hydronephrosis is seen. No; intrarenal calculus is observed. No retroperitoneal mass or adenopathy is seen.; Normal caliber aorta is noted. Uterus is somewhat heterogeneous consistent with; fibroid change. The endometrium appears thickened or distended. Cannot exclude; endometrial hyperplasia or malignancy. This is similar to prior CT and; ultrasound appearance. A Tellez catheter is seen within the otherwise empty; urinary bladder. No obstructive gastrointestinal lesion is seen. No abdominal; wall defect is observed. Bone window settings demonstrate degenerative spine; changes. No acute bony abnormality is seen.; ; IMPRESSION:; ; 1. Mildly distended gallbladder.; ; 2. Stable hepatic cysts.; ; 3. 11.5 cm simple cyst left kidney slightly larger than on the September 09, 2016; prior CT.; ; 4. Somewhat enlarged fibroid uterus. Endometrium appears distended similar to; prior study and recent ultrasound. I cannot exclude endometrial hyperplasia or; malignancy.; ; 5. Tellez catheter.; ; ; Signed by; Stuart Manzo MD 11/26/2016 03:50 P; Radiology Order: CT Chest Without Contrast Test: CT Chest Without Contrast REASON FOR EXAMINATION: aspiration; CT study of the chest without contrast:; ; History: Aspiration. Comparison is made with today's chest x-ray.; ; CT findings: The lungs are symmetrically aerated. There is some subsegmental; bibasilar lower lobe plate-like atelectasis bilaterally. No other infiltrate is; appreciated. No pleural effusion or pericardial effusion is seen. There is; vascular calcification. 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 This is a normal variant. The thoracic; aorta is tortuous and normal in caliber. No extrathoracic mass or adenopathy is; seen. No pulmonary mass lesion is observed. Bone window settings demonstrate; diffuse degenerative disc disease. There is mild osteoporotic wedging in several; thoracic vertebrae. No bony destructive lesion is seen.; ; Impression:; ; Mild bilateral lower lobe discoid atelectasis. Cardiomegaly. Otherwise no; acute disease.; ; ; Signed by; Stuart Manzo MD 11/26/2016 03:49 P; Radiology Order: EKG-ADULT Test: EKG-ADULT REASON FOR EXAMINATION: Abdomen Pain; Stationary ECG Study; [facility] ED; ; Test Date: 2016-11-26; Pat Name: [facility] Department:; Room: -; Gender: F Tow Car Driver: lyle; : 1940 Requested By: Delaney Perez; Order Number: [id number] Reading MD: Delaney Perez; Measurements; Intervals [place]; Rate: 104 P: 12; AL: 142 QRS: 10; QRSD: 84 T: 8; QT: 351; QTc: 462; Interpretive Statements; SINUS TACHYCARDIA; MODERATE T-WAVE ABNORMALITY, CONSIDER ANTEROLATERAL ISCHEMIA; LOW VOLTAGE LIMB; NSTTW ABNORMALITY; Electronically Signed On 11-26-2016 19:33:25 EST by Delaney Perez; Radiology Order: EKG-ADULT Test: EKG-ADULT REASON FOR EXAMINATION: tacycardia; Stationary ECG Study; [facility] ED; ; Test Date: 2016-11-26; Pat Name: [facility] Department:; Room: -; Gender: F Tow Car Driver: lyle; : 1940 Requested By: Delaney Perez; Order Number: [id number] Reading MD: Delaney Perez; Measurements; Intervals [place]; Rate: 176 P:; AL: 0 QRS: 27; QRSD: 98 T: 214; QT: 248; QTc: 425; Interpretive Statements; SUPRAVENTRICULAR TACHYCARDIA, POSSIBLE ATRIAL FLUTTER; ST DEVIATION AND MODERATE T-WAVE ABNORMALITY, CONSIDER ANTEROLATERAL ISCHEMIA; ST DEVIATION AND MODERATE T-WAVE ABNORMALITY, CONSIDER INFERIOR ISCHEMIA; PRIOR SINUS TACHYCARDIA/ MORE PRONOUNCED ST CHANGES CLINICAL CORRELATION; Electronically Signed On 11-26-2016 19:34:02 EST by Delaney Perez; Outcome: 14:55 Decision to Hospitalize by Provider. sd1 11/27 16:38 Discharge Assessment: Patient awake, alert and oriented x 3. No cognitive and/or pml functional deficits noted. Patient verbalized understanding of disposition instructions. patient administered narcotics - no. The following High Risk Discharge criteria are identified: None. Admitted to ICU accompanied by nurse, accompanied by tech, via stretcher, on monitor, with chart. Condition: good. Admission hand-off: Report called to KNOCKOUT MACHINE OPERATOR. Property :Personal belongings accompany Pt. 16:40 CT Study completed. pml 16:41 Patient left the ED. pml Signatures: Dispatcher [employer] EDMS Delaney Perez MD MD sd1 Debbie Gautam, RN RN kmBonnie Jacobs RN Tiffany Tyson mcp RN Vandana MontielRN ADRIA hillman3 Kath Christine,RN ADRIA jo3 Ezra Santana, Reg Reg kf3 James Jalloh, WHEELABRATOR OPERATOR WHEELABRATOR OPERATOR dd6 Kath Casillas RN RN jc4 Sylvia Musa RN RN pml Conner, Teresa, RN RN ttb Beck, Gabriela gjb Palmer, Jessica,RN RN duong6 Ailyn Grimm2 Ann-Marie Lopez,RN RN tm5 Corrections: (The following items were deleted from the chart) 16:40 16:38 No special radiology studies were completed pml pml Chart Complete MTDD
--- NOTE | 2016-11-29 17:42 | EDDOCDS ---
Physician Documentation [facility] Name: Anjum Klein Age: 76 yrs Sex: Female : 1940 Arrival Date: 11/26/2016 Time: 11:30 Bed Admit Hold Private MD: Mai Valenzuela L Disposition: 11/26/16 14:55 Hospitalization ordered by Santo Broderick for Inpatient Admission. Preliminary diagnosis is Sepsis, unspecified organism. - Bed requested for M ICU. - Status is Inpatient Admission. pml - Condition is Stable. - Problem is new. - Symptoms are unchanged. Historical: - Allergies: Demerol; Codeine Sulfate; - Home Meds: 1. Namenda XR 28 mg oral CSpX 1 cap once daily 2. refresh eye drops twice daily 3. Arthritis Pain Relief 650 mg twice daily 4. 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 No barriers to communication noted, The patient speaks fluent Guatemalan, Speaks appropriately for age. - Family history: Not pertinent. - : The pt / caregiver states he / she is not on anticoagulants. Home medication list is obtained from family members. - Exposure Risk Screening:: None identified. Vital Signs: 11/26 11:33 BP 133 / 103; Pulse 124; Resp 18 S; Temp 98.8; Pulse Ox 95% on R/A; dd6 11:55 BP 97 / 61 (auto/); jc4 11:56 Temp 101.8(O); nb2 11:56 Pulse 122 MON; Pulse Ox 92% ; jc4 12:56 Pulse Ox 94% ; jc4 13:01 Weight 68.04 kg / 150 lbs (R); Height 5 ft. 2 in. (157.48 cm) (R); jc4 13:01 BP 89 / 55 (auto/); jc4 13:17 BP 91 / 56 (auto/); jc4 13:18 Pulse 110 MON; Pulse Ox 93% ; jc4 13:21 Resp 32 S; Pulse Ox 93% on R/A; jc4 13:40 Pulse 112 MON; Pulse Ox 92% ; jc4 13:47 BP 88 / 54 (auto/); jc4 14:17 BP 87 / 60 (auto/); Resp 36 S; jc4 14:19 Pulse 108 MON; Pulse Ox 94% ; jc4 14:39 Temp 99.3(A); jc4 14:47 BP 85 / 50 (auto/); jc4 14:48 Pulse 104 MON; Pulse Ox 95% ; jc4 15:17 BP 87 / 53 (auto/); jc4 15:17 Pulse 98 MON; Pulse Ox 95% ; jc4 15:24 Pulse 98 MON; Pulse Ox 96% ; jc4 15:25 BP 88 / 53 (auto/); jc4 15:57 Pulse 176 MON; Pulse Ox 95% ; jc4 15:58 BP 83 / 52 (auto/); jc4 16:02 BP 83 / 51 (auto/); jc4 16:02 Pulse 176 MON; Pulse Ox 96% ; jc4 16:17 BP 77 / 52 (auto/); jc4 16:17 Pulse 180 MON; Pulse Ox 96% ; jc4 16:32 BP 82 / 56 (auto/); jc4 16:32 Pulse 184 MON; Pulse Ox 95% ; jc4 16:47 BP 78 / 48 (auto/); jc4 16:47 Pulse 180 MON; Pulse Ox 96% ; jc4 17:00 Pulse 176 MON; Pulse Ox 95% ; jc4 17:02 BP 74 / 57 (auto/); jc4 17:17 BP 86 / 53 (auto/); jc4 17:24 Pulse 166 MON; Pulse Ox 96% ; jc4 17:32 BP 90 / 51 (auto/); jc4 17:32 Pulse 166 MON; Pulse Ox 95% ; jc4 17:47 BP 83 / 50 (auto/); jc4 17:47 Pulse 168 MON; Pulse Ox 95% ; jc4 18:02 BP 81 / 50 (auto/); jc4 18:02 Pulse 162 MON; Pulse Ox 95% ; jc4 18:17 BP 74 / 46 (auto/); jc4 18:17 Pulse 162 MON; Pulse Ox 94% ; jc4 18:32 BP 76 / 49 (auto/); jc4 18:33 Pulse 160 MON; Pulse Ox 94% ; jc4 18:33 Resp 32 S; jc4 18:47 BP 80 / 51 (auto/); jc4 18:49 Pulse 164 MON; Pulse Ox 96% ; jc4 19:17 BP 82 / 50; Pulse 158; Resp 22; Temp 97.8(A); Pulse Ox 96% on 2 lpm NC; Pain 0/10; tm5 20:19 BP 74 / 39; Pulse 92; Resp 20; Pulse Ox 96% on 2 lpm NC; tm5 21:08 BP 104 / 63; Pulse 67; Resp 18; Pulse Ox 96% on 2 lpm NC; tm5 11/27 16:38 BP 126 / 69; Pulse 75; Resp 18; Temp 98.2; Pulse Ox 94% on R/A; pml 11/26 13:01 Body Mass Index 27.44 (68.04 kg, 157.48 cm) jc4 MDM: 11/26 11:46 -Blood Culture (Adults Only), peripheral from different site, or from device/port/PICC sd1 etc. if present ordered. 11:46 Development Officer/Pulse Ox/q 30 min VS ordered. sd1 11:47 Amylase Ordered. EDMS 11:47 Basic Metabolic Profile Ordered. EDMS 11:47 CBC with Diff Ordered. EDMS 11:47 Lipase Ordered. EDMS 11:47 Liver Profile Ordered. EDMS 11:47 Lactic Acid (Murillo tube on ice) Ordered. EDMS 11:47 -Blood Culture Ordered. EDMS 11:48 Chest, 1 View Ordered. EDMS 11:48 UA Ordered. EDMS 11:48 Urine Culture Ordered. EDMS 12:13 Tellez ordered. jc4 12:24 NS 0.9% 1000 ml IV at 150 mL/hr continuous ordered. sd1 12:25 Cefepime 2 grams IVPB at 100 mL/hr once over 30 mins; dilute in 50mL of NS or D5W sd1 ordered. 12:25 DIFFERENTIAL NO CHARGE Ordered. EDMS 12:31 Acetaminophen Suppository 650 mg FL once ordered. jc4 12:43 -Blood Culture (Adults Only), peripheral from different site, or from device/port/PICC lbd etc. if present complete. 12:46 BLOOD CULTURES Ordered. EDMS 13:04 NS 0.9% (Sepsis- hypotension or lactate >4mmol/L, 30ml/kg) 30 ml/kg IV at bolus once; sd1 Give in 500mL aliquots, assess for rales after each,2100cc ordered. 13:09 BED REQUEST+ADM ordered. EDMS 13:28 Amylase Reviewed. sd1 13:28 Basic Metabolic Profile Reviewed. sd1 13:28 CBC with Diff Reviewed. sd1 13:28 Lipase Reviewed. sd1 13:28 Liver Profile Reviewed. sd1 13:28 UA Reviewed. sd1 13:28 Lactic Acid (Murillo tube on ice) Reviewed. sd1 13:28 PLATELET ESTIMATE Reviewed. sd1 13:30 CT ABD & PELVIS: No Contrast Ordered. EDMS 13:30 CT Chest Without Contrast Ordered. EDMS 14:06 ECG WITH READING ER PHYS+CARDIAG ordered. EDMS 15:14 vancomycin 125 mg PO once ordered. sd1 15:35 Financial registration complete. [facility] 15:43 [facility] Payment Agreement was scanned into [email or web address] and attached to record. gjb 15:47 ECG WITH READING ER PHYS+CARDIAG ordered. EDMS 16:02 Digoxin 0.5 mg IVP once ordered. sd1 18:15 GASTROINTESTINAL (GI) PANEL Ordered. EDMS 19:01 Admission / Observation Status ordered. EDMS 19:01 TROPONIN Ordered. EDMS 19:01 LACTIC ACID LEVEL, LACTATE Ordered. EDMS 19:02 COMPLETE BLOOD COUNT Ordered. EDMS 19:02 BASIC METABOLIC PROFILE Ordered. EDMS 19:33 TROPONIN Ordered. EDMS 19:33 TROPONIN Ordered. EDMS 19:33 BASIC METABOLIC PROFILE Ordered. EDMS 19:33 COMPLETE BLOOD COUNT Ordered. EDMS 01 08:56 PUREED DIET ordered. EDMS 11/28 19:24 Trend VS was scanned into [email or web address] and attached to record. kf3 Administered Medications: 11/26 12:50 Drug: Acetaminophen 650 mg [acetaminophen 650 mg rectal suppository (1 supp)] Route: FL;jc4 14:39 Follow up: Temp 99.3 Axillary jc4 12:57 Drug: NS 0.9% 1000 ml [sodium chloride 0.9 % intravenous solution] Route: IV; Rate: 150 jc4 mL/hr; Site: left antecubital; 13:18 Drug: Cefepime 2 grams [cefepime 2 gram solution for injection] Route: IVPB; Rate: 100 jc4 mL/hr; Infused Over: 30 mins; Site: left antecubital; 13:55 Follow up: IV Status: Completed infusion kr3 13:18 Drug: NS 0.9% (Sepsis- hypotension or lactate >4mmol/L, 30ml/kg) 2041.2 ml [sodium jc4 chloride 0.9 % intravenous solution] Route: IV; Rate: bolus; Site: left antecubital; 16:23 Drug: Digoxin 0.5 mg [digoxin 250 mcg/mL injection solution (2 mL)] Route: IVP; Site: jc4 left antecubital; 19:10 Follow up: Response: No Adverse Reaction tm5 16:31 Drug: vancomycin 125 mg Route: PO; jc4 19:10 Follow up: Response: No Adverse Reaction tm5 Signatures: Dispatcher [employer] EDMS Delaney Perez MD MD sd1 Cyndi Claudio, Compliance Vice President Unit lbd Kath Christine RN RN jo3 Ezra Santana, Reg Reg kf3 Kath Casillas RN RN jc4 Sylvia Musa RN RN pml Beck, Gabriela gjb Robie, Kathleen RN kr3 Ann-Marie Lopez RN tm5 The chart was reviewed and I authenticate all verbal orders and agree with the evaluation and treatment provided.Corrections: (The following items were deleted from the chart) 18:15 13:08 CLOSTRIDIUM DIFFICILE PCR+TOM ordered. EDMS EDMS 18:15 18:13 GASTROINTESTINAL (GI) PANEL ordered. EDMS EDMS 11/27 08:55 11/26 11:48 NOTHING BY MOUTH+DIET ordered. EDMS EDMS 11/27 08:55 11/26 19:01 NPO DIET ordered. EDMS EDMS Attachments: 15:43 [facility] Payment Agreement gj Chart Complete MTDD
--- NOTE | 2016-11-29 17:42 | EDDOCDS ---
Physician Documentation [facility] Name: Anjum Klein Age: 76 yrs Sex: Female : 1940 Arrival Date: 11/26/2016 Time: 11:30 Bed Admit Hold Private MD: Mai Valenzuela L Disposition: 11/26/16 14:55 Hospitalization ordered by Santo Broderick for Inpatient Admission. Preliminary diagnosis is Sepsis, unspecified organism. - Bed requested for M ICU. - Status is Inpatient Admission. pml - Condition is Stable. - Problem is new. - Symptoms are unchanged. Historical: - Allergies: Demerol; Codeine Sulfate; - Home Meds: 1. Namenda XR 28 mg oral CSpX 1 cap once daily 2. refresh eye drops twice daily 3. Arthritis Pain Relief 650 mg twice daily 4. 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 No barriers to communication noted, The patient speaks fluent [place]arag[place], Speaks appropriately for age. - Family history: Not pertinent. - : The pt / caregiver states he / she is not on anticoagulants. Home medication list is obtained from family members. - Exposure Risk Screening:: None identified. Vital Signs: 11/26 11:33 BP 133 / 103; Pulse 124; Resp 18 S; Temp 98.8; Pulse Ox 95% on R/A; dd6 11:55 BP 97 / 61 (auto/); jc4 11:56 Temp 101.8(O); nb2 11:56 Pulse 122 MON; Pulse Ox 92% ; jc4 12:56 Pulse Ox 94% ; jc4 13:01 Weight 68.04 kg / 150 lbs (R); Height 5 ft. 2 in. (157.48 cm) (R); jc4 13:01 BP 89 / 55 (auto/); jc4 13:17 BP 91 / 56 (auto/); jc4 13:18 Pulse 110 MON; Pulse Ox 93% ; jc4 13:21 Resp 32 S; Pulse Ox 93% on R/A; jc4 13:40 Pulse 112 MON; Pulse Ox 92% ; jc4 13:47 BP 88 / 54 (auto/); jc4 14:17 BP 87 / 60 (auto/); Resp 36 S; jc4 14:19 Pulse 108 MON; Pulse Ox 94% ; jc4 14:39 Temp 99.3(A); jc4 14:47 BP 85 / 50 (auto/); jc4 14:48 Pulse 104 MON; Pulse Ox 95% ; jc4 15:17 BP 87 / 53 (auto/); jc4 15:17 Pulse 98 MON; Pulse Ox 95% ; jc4 15:24 Pulse 98 MON; Pulse Ox 96% ; jc4 15:25 BP 88 / 53 (auto/); jc4 15:57 Pulse 176 MON; Pulse Ox 95% ; jc4 15:58 BP 83 / 52 (auto/); jc4 16:02 BP 83 / 51 (auto/); jc4 16:02 Pulse 176 MON; Pulse Ox 96% ; jc4 16:17 BP 77 / 52 (auto/); jc4 16:17 Pulse 180 MON; Pulse Ox 96% ; jc4 16:32 BP 82 / 56 (auto/); jc4 16:32 Pulse 184 MON; Pulse Ox 95% ; jc4 16:47 BP 78 / 48 (auto/); jc4 16:47 Pulse 180 MON; Pulse Ox 96% ; jc4 17:00 Pulse 176 MON; Pulse Ox 95% ; jc4 17:02 BP 74 / 57 (auto/); jc4 17:17 BP 86 / 53 (auto/); jc4 17:24 Pulse 166 MON; Pulse Ox 96% ; jc4 17:32 BP 90 / 51 (auto/); jc4 17:32 Pulse 166 MON; Pulse Ox 95% ; jc4 17:47 BP 83 / 50 (auto/); jc4 17:47 Pulse 168 MON; Pulse Ox 95% ; jc4 18:02 BP 81 / 50 (auto/); jc4 18:02 Pulse 162 MON; Pulse Ox 95% ; jc4 18:17 BP 74 / 46 (auto/); jc4 18:17 Pulse 162 MON; Pulse Ox 94% ; jc4 18:32 BP 76 / 49 (auto/); jc4 18:33 Pulse 160 MON; Pulse Ox 94% ; jc4 18:33 Resp 32 S; jc4 18:47 BP 80 / 51 (auto/); jc4 18:49 Pulse 164 MON; Pulse Ox 96% ; jc4 19:17 BP 82 / 50; Pulse 158; Resp 22; Temp 97.8(A); Pulse Ox 96% on 2 lpm NC; Pain 0/10; tm5 20:19 BP 74 / 39; Pulse 92; Resp 20; Pulse Ox 96% on 2 lpm NC; tm5 21:08 BP 104 / 63; Pulse 67; Resp 18; Pulse Ox 96% on 2 lpm NC; tm5 11/27 16:38 BP 126 / 69; Pulse 75; Resp 18; Temp 98.2; Pulse Ox 94% on R/A; pml 11/26 13:01 Body Mass Index 27.44 (68.04 kg, 157.48 cm) jc4 MDM: 11/26 11:46 -Blood Culture (Adults Only), peripheral from different site, or from device/port/PICC sd1 etc. if present ordered. 11:46 Library Cataloging Technician/Pulse Ox/q 30 min VS ordered. sd1 11:47 Amylase Ordered. EDMS 11:47 Basic Metabolic Profile Ordered. EDMS 11:47 CBC with Diff Ordered. EDMS 11:47 Lipase Ordered. EDMS 11:47 Liver Profile Ordered. EDMS 11:47 Lactic Acid (Murillo tube on ice) Ordered. EDMS 11:47 -Blood Culture Ordered. EDMS 11:48 Chest, 1 View Ordered. EDMS 11:48 UA Ordered. EDMS 11:48 Urine Culture Ordered. EDMS 12:13 Tellez ordered. jc4 12:24 NS 0.9% 1000 ml IV at 150 mL/hr continuous ordered. sd1 12:25 Cefepime 2 grams IVPB at 100 mL/hr once over 30 mins; dilute in 50mL of NS or D5W sd1 ordered. 12:25 DIFFERENTIAL NO CHARGE Ordered. EDMS 12:31 Acetaminophen Suppository 650 mg MS once ordered. jc4 12:43 -Blood Culture (Adults Only), peripheral from different site, or from device/port/PICC lbd etc. if present complete. 12:46 BLOOD CULTURES Ordered. EDMS 13:04 NS 0.9% (Sepsis- hypotension or lactate >4mmol/L, 30ml/kg) 30 ml/kg IV at bolus once; sd1 Give in 500mL aliquots, assess for rales after each,2100cc ordered. 13:09 BED REQUEST+ADM ordered. EDMS 13:28 Amylase Reviewed. sd1 13:28 Basic Metabolic Profile Reviewed. sd1 13:28 CBC with Diff Reviewed. sd1 13:28 Lipase Reviewed. sd1 13:28 Liver Profile Reviewed. sd1 13:28 UA Reviewed. sd1 13:28 Lactic Acid (Murillo tube on ice) Reviewed. sd1 13:28 PLATELET ESTIMATE Reviewed. sd1 13:30 CT ABD & PELVIS: No Contrast Ordered. EDMS 13:30 CT Chest Without Contrast Ordered. EDMS 14:06 ECG WITH READING ER PHYS+CARDIAG ordered. EDMS 15:14 vancomycin 125 mg PO once ordered. sd1 15:35 Financial registration complete. [facility] 15:43 [facility] Payment Agreement was scanned into [employer] and attached to record. gjb 15:47 ECG WITH READING ER PHYS+CARDIAG ordered. EDMS 16:02 Digoxin 0.5 mg IVP once ordered. sd1 18:15 GASTROINTESTINAL (GI) PANEL Ordered. EDMS 19:01 Admission / Observation Status ordered. EDMS 19:01 TROPONIN Ordered. EDMS 19:01 LACTIC ACID LEVEL, LACTATE Ordered. EDMS 19:02 COMPLETE BLOOD COUNT Ordered. EDMS 19:02 BASIC METABOLIC PROFILE Ordered. EDMS 19:33 TROPONIN Ordered. EDMS 19:33 TROPONIN Ordered. EDMS 19:33 BASIC METABOLIC PROFILE Ordered. EDMS 19:33 COMPLETE BLOOD COUNT Ordered. EDMS 01 08:56 PUREED DIET ordered. EDMS 11/28 19:24 Trend VS was scanned into [employer] and attached to record. kf3 Administered Medications: 11/26 12:50 Drug: Acetaminophen 650 mg [acetaminophen 650 mg rectal suppository (1 supp)] Route: MS;jc4 14:39 Follow up: Temp 99.3 Axillary jc4 12:57 Drug: NS 0.9% 1000 ml [sodium chloride 0.9 % intravenous solution] Route: IV; Rate: 150 jc4 mL/hr; Site: left antecubital; 13:18 Drug: Cefepime 2 grams [cefepime 2 gram solution for injection] Route: IVPB; Rate: 100 jc4 mL/hr; Infused Over: 30 mins; Site: left antecubital; 13:55 Follow up: IV Status: Completed infusion kr3 13:18 Drug: NS 0.9% (Sepsis- hypotension or lactate >4mmol/L, 30ml/kg) 2041.2 ml [sodium jc4 chloride 0.9 % intravenous solution] Route: IV; Rate: bolus; Site: left antecubital; 16:23 Drug: Digoxin 0.5 mg [digoxin 250 mcg/mL injection solution (2 mL)] Route: IVP; Site: jc4 left antecubital; 19:10 Follow up: Response: No Adverse Reaction tm5 16:31 Drug: vancomycin 125 mg Route: PO; jc4 19:10 Follow up: Response: No Adverse Reaction tm5 Signatures: Dispatcher [employer] EDMS Delaney Perez MD MD sd1 Cyndi Claudio, [employer] Supervisor Unit lbd Kath Christine RN RN jo3 Ezra Santana, Reg Reg kf3 Kath Casillas RN RN jc4 Sylvia Musa RN RN pml Beck, Gabriela gjb Robie, Kathleen RN kr3 Ann-Marie Lopez RN tm5 The chart was reviewed and I authenticate all verbal orders and agree with the evaluation and treatment provided.Corrections: (The following items were deleted from the chart) 18:15 13:08 CLOSTRIDIUM DIFFICILE PCR+TOM ordered. EDMS EDMS 18:15 18:13 GASTROINTESTINAL (GI) PANEL ordered. EDMS EDMS 11/27 08:55 11/26 11:48 NOTHING BY MOUTH+DIET ordered. EDMS EDMS 11/27 08:55 11/26 19:01 NPO DIET ordered. EDMS EDMS Attachments: 15:43 [facility] Payment Agreement gj Chart Complete MTDD
--- NOTE | 2016-11-29 19:28 | ECGEPIP ---
Stationary ECG Study [facility] Test Date: 2016-11-29 Pat Name: JUSTIN CRUZ Department: Room: [place] [address] Gender: F Regroover: SAM : 1940 Requested By: JEREMIAH PERAZA Order Number: [id number] Reading MD: Dax Noonan Measurements Intervals [place] Rate: 62 P: -21 WV: 133 QRS: 24 QRSD: 86 T: -4 QT: 417 QTc: 425 Interpretive Statements SINUS RHYTHM WITH OCCASIONAL SUPRAVENTRICULAR PREMATURE COMPLEXES SINCE 11/26/16 ATRIAL FLUTTER IS NO LONGER PRESENT Electronically Signed On 11-29-2016 19:28:39 EST by Dax Noonan
[2016-11-29] MEDS: SERTRALINE 100 MG TAB PO SCH (20:49)
[2016-11-29 22:00] VITALS: BP 100/55
[2016-11-30 06:00] VITALS: BP 126/78
[2016-11-30 06:12] LABS: MEAN CORPUSCULAR HEMOGLOBIN 29.6 pg (27.0-33.0); MEAN CORPUSCULAR HGB CONC 32.9 g/dl (32.0-36.5); MEAN CORPUSCULAR VOLUME 89.8 fl (80.0-96.0); WHITE BLOOD COUNT 12.6 K/mm3 (4.0-10.0)
[2016-11-30 06:18] LABS: ANION GAP 9 MEQ/L (8-16); BLOOD UREA NITROGEN 8 MG/DL (7-18); CALCIUM LEVEL 8.2 MG/DL (8.8-10.2); CARBON DIOXIDE LEVEL 24 MEQ/L (21-32); CHLORIDE LEVEL 111 MEQ/L (98-107); CREATININE FOR GFR 0.58 MG/DL (0.55-1.02); GLOMERULAR FILTRATION RATE > 60.0 (>39); GLUCOSE, FASTING 94 MG/DL (83-110); POTASSIUM SERUM 3.5 MEQ/L (3.5-5.1); SODIUM LEVEL 144 MEQ/L (136-145)
[2016-11-30] MEDS: ACETAMINOPHEN 650MG ER TAB (TYLENOL ARTHRITIS) PO SCH ×2 (09:00→21:34)
[2016-11-30] MEDS: cefTRIAXone SOD 1 GM in D5W MINI-BAG PLUS 50 ML IV SCH (12:09)
[2016-11-30 14:00] VITALS: BP 113/60
--- NOTE | 2016-11-30 17:12 | IPNPDOC ---
Assessment/Plan Date Seen The patient was seen on 11/30/16. Problems Problems: (1) Sepsis Status: Resolved Problem Text: due to UTI Has ecoli pansensitive . 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 now resolved. not anticoagulated as very short duration. Has dementia and tendency to falls. (5) Aphasia Status: Chronic (6) UTI (urinary tract infection) Status: Acute Problem Text: continue ceftriaxone change to po levofloxacin when ready for dc. (7) Diarrhea Status: Resolved Problem Text: gi panel negative stopped vancomycin. (8) Dysphagia Status: Chronic Problem Text: patient takes pureed food and honey thickened fluids at [facility] will get a speech and swallow evaluation Plan / VTE VTE Prophylaxis Ordered?: Yes Subjective Review of Systems CC/HPI The patient is a 76-year-old female admitted with a reason for visit of Sepsis. Events since last encounter pt seen and examined, daughter was at bedside and we had long discussion regarding discharge planing General: Reports: ROS Unobtainable Objective Physical Examination General Exam: Positive: No Acute Distress Eye Exam: Positive: Conjunctiva & lids normal, EOMI, PERRLA, Negative: Sclera icteric ENT Exam: Positive: Atraumatic, Mucous membr. moist/pink, Pharynx Normal Chest Exam: Positive: Normal air movement, Rales Heart Exam: Positive: Irregular Rhythm, Normal S1, Normal S2 Telemetry: Positive: No significant arrhythmia Abdomen Exam: Positive: Normal bowel sounds, Soft, Negative: Hepatospenomegaly, Tenderness Extremity Exam: Positive: Normal pulses, Negative: Clubbing, Cyanosis, Edema Vital Signs/I&O Vital Signs Date Time Temp Pulse Resp B/P Pulse Ox O2 Delivery O2 Flow Rate FiO2 11/30/16 14:00 97.3 65 17 113/60 91 Room Air 11/27/16 08:00 2.0 I&O- Last 24 Hours up to 6 AM 1/31/17 06:00 Intake Total 20 ml Output Total 450 ml Balance -430 ml Laboratory Data Labs 24H Laboratory Tests 2 11/30/16 05:55: Anion Gap 9, Blood Urea Nitrogen 8, Creatinine 0.58, Sodium Level 144, Potassium Level 3.5, Chloride Level 111H, Carbon Dioxide Level 24, Calcium Level 8.2L, Glomerular Filtration Rate > 60.0 CBC/BMP Laboratory Tests 11/30/16 05:55 Calcium Level 8.2 L, Red Blood Count 3.51 L, Mean Corpuscular Volume 89.8, Mean Corpuscular Hemoglobin 29.6, Mean Corpuscular Hemoglobin Concent 32.9, Red Cell Distribution Width 14.0 Microbiology Microbiology 11/26/16 Blood Culture - Preliminary, Resulted 11/26/16 Blood Culture - Preliminary, Resulted No Growth after 72 hours. All specime... 11/28/16 Gastrointestinal Tract Panel (PCR) - Final, Complete 11/27/16 MRSA Screen - Final, Complete 11/26/16 Urine Culture - Final, Complete Escherichia Coli SILKE GUEVARA DO Nov 30, 2016 17:12
[2016-11-30] MEDS: SERTRALINE 100 MG TAB PO SCH (21:34)
[2016-11-30 22:00] VITALS: BP 126/70
[2016-12-01 06:00] VITALS: BP 133/76
[2016-12-01 06:30] LABS: MEAN CORPUSCULAR HEMOGLOBIN 30.6 pg (27.0-33.0); RED CELL DISTRIBUTION WIDTH 13.1 % (11.5-14.5); WHITE BLOOD COUNT 9.4 K/mm3 (4.0-10.0)
[2016-12-01 06:53] LABS: ANION GAP 7 MEQ/L (8-16); BLOOD UREA NITROGEN 8 MG/DL (7-18); CALCIUM LEVEL 8.3 MG/DL (8.8-10.2); CARBON DIOXIDE LEVEL 26 MEQ/L (21-32); CHLORIDE LEVEL 110 MEQ/L (98-107); CREATININE FOR GFR 0.53 MG/DL (0.55-1.02); GLOMERULAR FILTRATION RATE > 60.0 (>39); GLUCOSE, FASTING 90 MG/DL (83-110); POTASSIUM SERUM 3.4 MEQ/L (3.5-5.1); SODIUM LEVEL 143 MEQ/L (136-145)
[2016-12-01 08:15] VITALS: BP 112/75
[2016-12-01] MEDS: ACETAMINOPHEN 650MG ER TAB (TYLENOL ARTHRITIS) PO SCH (09:14)
[2016-12-01] MEDS: cefTRIAXone SOD 1 GM in D5W MINI-BAG PLUS 50 ML IV SCH (12:47)
[2016-12-01 14:00] VITALS: BP 113/65
--- NOTE | 2016-12-01 14:01 | EDDOCDS ---
Physician Documentation [facility] Name: Anjum Klein Age: 76 yrs Sex: Female : 1940 Arrival Date: 11/26/2016 Time: 11:30 Bed Admit Hold Private MD: Mai Valenzuela L Disposition: 11/26/16 14:55 Hospitalization ordered by Santo Broderick for Inpatient Admission. Preliminary diagnosis is Sepsis, unspecified organism. - Bed requested for M ICU. - Status is Inpatient Admission. pml - Condition is Stable. - Problem is new. - Symptoms are unchanged. Historical: - Allergies: Demerol; Codeine Sulfate; - Home Meds: 1. Namenda XR 28 mg oral CSpX 1 cap once daily 2. refresh eye drops twice daily 3. Arthritis Pain Relief 650 mg twice daily 4. 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 No barriers to communication noted, The patient speaks fluent Omani, Speaks appropriately for age. - Family history: Not pertinent. - : The pt / caregiver states he / she is not on anticoagulants. Home medication list is obtained from family members. - Exposure Risk Screening:: None identified. Vital Signs: 11/26 11:33 BP 133 / 103; Pulse 124; Resp 18 S; Temp 98.8; Pulse Ox 95% on R/A; dd6 11:55 BP 97 / 61 (auto/); jc4 11:56 Temp 101.8(O); nb2 11:56 Pulse 122 MON; Pulse Ox 92% ; jc4 12:56 Pulse Ox 94% ; jc4 13:01 Weight 68.04 kg / 150 lbs (R); Height 5 ft. 2 in. (157.48 cm) (R); jc4 13:01 BP 89 / 55 (auto/); jc4 13:17 BP 91 / 56 (auto/); jc4 13:18 Pulse 110 MON; Pulse Ox 93% ; jc4 13:21 Resp 32 S; Pulse Ox 93% on R/A; jc4 13:40 Pulse 112 MON; Pulse Ox 92% ; jc4 13:47 BP 88 / 54 (auto/); jc4 14:17 BP 87 / 60 (auto/); Resp 36 S; jc4 14:19 Pulse 108 MON; Pulse Ox 94% ; jc4 14:39 Temp 99.3(A); jc4 14:47 BP 85 / 50 (auto/); jc4 14:48 Pulse 104 MON; Pulse Ox 95% ; jc4 15:17 BP 87 / 53 (auto/); jc4 15:17 Pulse 98 MON; Pulse Ox 95% ; jc4 15:24 Pulse 98 MON; Pulse Ox 96% ; jc4 15:25 BP 88 / 53 (auto/); jc4 15:57 Pulse 176 MON; Pulse Ox 95% ; jc4 15:58 BP 83 / 52 (auto/); jc4 16:02 BP 83 / 51 (auto/); jc4 16:02 Pulse 176 MON; Pulse Ox 96% ; jc4 16:17 BP 77 / 52 (auto/); jc4 16:17 Pulse 180 MON; Pulse Ox 96% ; jc4 16:32 BP 82 / 56 (auto/); jc4 16:32 Pulse 184 MON; Pulse Ox 95% ; jc4 16:47 BP 78 / 48 (auto/); jc4 16:47 Pulse 180 MON; Pulse Ox 96% ; jc4 17:00 Pulse 176 MON; Pulse Ox 95% ; jc4 17:02 BP 74 / 57 (auto/); jc4 17:17 BP 86 / 53 (auto/); jc4 17:24 Pulse 166 MON; Pulse Ox 96% ; jc4 17:32 BP 90 / 51 (auto/); jc4 17:32 Pulse 166 MON; Pulse Ox 95% ; jc4 17:47 BP 83 / 50 (auto/); jc4 17:47 Pulse 168 MON; Pulse Ox 95% ; jc4 18:02 BP 81 / 50 (auto/); jc4 18:02 Pulse 162 MON; Pulse Ox 95% ; jc4 18:17 BP 74 / 46 (auto/); jc4 18:17 Pulse 162 MON; Pulse Ox 94% ; jc4 18:32 BP 76 / 49 (auto/); jc4 18:33 Pulse 160 MON; Pulse Ox 94% ; jc4 18:33 Resp 32 S; jc4 18:47 BP 80 / 51 (auto/); jc4 18:49 Pulse 164 MON; Pulse Ox 96% ; jc4 19:17 BP 82 / 50; Pulse 158; Resp 22; Temp 97.8(A); Pulse Ox 96% on 2 lpm NC; Pain 0/10; tm5 20:19 BP 74 / 39; Pulse 92; Resp 20; Pulse Ox 96% on 2 lpm NC; tm5 21:08 BP 104 / 63; Pulse 67; Resp 18; Pulse Ox 96% on 2 lpm NC; tm5 11/27 16:38 BP 126 / 69; Pulse 75; Resp 18; Temp 98.2; Pulse Ox 94% on R/A; pml 11/26 13:01 Body Mass Index 27.44 (68.04 kg, 157.48 cm) jc4 MDM: 11/26 11:46 -Blood Culture (Adults Only), peripheral from different site, or from device/port/PICC sd1 etc. if present ordered. 11:46 Catalyst Recovery Operator/Pulse Ox/q 30 min VS ordered. sd1 11:47 Amylase Ordered. EDMS 11:47 Basic Metabolic Profile Ordered. EDMS 11:47 CBC with Diff Ordered. EDMS 11:47 Lipase Ordered. EDMS 11:47 Liver Profile Ordered. EDMS 11:47 Lactic Acid (Murillo tube on ice) Ordered. EDMS 11:47 -Blood Culture Ordered. EDMS 11:48 Chest, 1 View Ordered. EDMS 11:48 UA Ordered. EDMS 11:48 Urine Culture Ordered. EDMS 12:13 Tellez ordered. jc4 12:24 NS 0.9% 1000 ml IV at 150 mL/hr continuous ordered. sd1 12:25 Cefepime 2 grams IVPB at 100 mL/hr once over 30 mins; dilute in 50mL of NS or D5W sd1 ordered. 12:25 DIFFERENTIAL NO CHARGE Ordered. EDMS 12:31 Acetaminophen Suppository 650 mg MN once ordered. jc4 12:43 -Blood Culture (Adults Only), peripheral from different site, or from device/port/PICC lbd etc. if present complete. 12:46 BLOOD CULTURES Ordered. EDMS 13:04 NS 0.9% (Sepsis- hypotension or lactate >4mmol/L, 30ml/kg) 30 ml/kg IV at bolus once; sd1 Give in 500mL aliquots, assess for rales after each,2100cc ordered. 13:09 BED REQUEST+ADM ordered. EDMS 13:28 Amylase Reviewed. sd1 13:28 Basic Metabolic Profile Reviewed. sd1 13:28 CBC with Diff Reviewed. sd1 13:28 Lipase Reviewed. sd1 13:28 Liver Profile Reviewed. sd1 13:28 UA Reviewed. sd1 13:28 Lactic Acid (Murillo tube on ice) Reviewed. sd1 13:28 PLATELET ESTIMATE Reviewed. sd1 13:30 CT ABD & PELVIS: No Contrast Ordered. EDMS 13:30 CT Chest Without Contrast Ordered. EDMS 14:06 ECG WITH READING ER PHYS+CARDIAG ordered. EDMS 15:14 vancomycin 125 mg PO once ordered. sd1 15:35 Financial registration complete. [facility] 15:43 [facility] Payment Agreement was scanned into [employer] and attached to record. gjb 15:47 ECG WITH READING ER PHYS+CARDIAG ordered. EDMS 16:02 Digoxin 0.5 mg IVP once ordered. sd1 18:15 GASTROINTESTINAL (GI) PANEL Ordered. EDMS 19:01 Admission / Observation Status ordered. EDMS 19:01 TROPONIN Ordered. EDMS 19:01 LACTIC ACID LEVEL, LACTATE Ordered. EDMS 19:02 COMPLETE BLOOD COUNT Ordered. EDMS 19:02 BASIC METABOLIC PROFILE Ordered. EDMS 19:33 TROPONIN Ordered. EDMS 19:33 TROPONIN Ordered. EDMS 19:33 BASIC METABOLIC PROFILE Ordered. EDMS 19:33 COMPLETE BLOOD COUNT Ordered. EDMS 01 08:56 PUREED DIET ordered. EDMS 11/28 19:24 Trend VS was scanned into [employer] and attached to record. kf3 Administered Medications: 11/26 12:50 Drug: Acetaminophen 650 mg [acetaminophen 650 mg rectal suppository (1 supp)] Route: MN;jc4 14:39 Follow up: Temp 99.3 Axillary jc4 12:57 Drug: NS 0.9% 1000 ml [sodium chloride 0.9 % intravenous solution] Route: IV; Rate: 150 jc4 mL/hr; Site: left antecubital; 13:18 Drug: Cefepime 2 grams [cefepime 2 gram solution for injection] Route: IVPB; Rate: 100 jc4 mL/hr; Infused Over: 30 mins; Site: left antecubital; 13:55 Follow up: IV Status: Completed infusion kr3 13:18 Drug: NS 0.9% (Sepsis- hypotension or lactate >4mmol/L, 30ml/kg) 2041.2 ml [sodium jc4 chloride 0.9 % intravenous solution] Route: IV; Rate: bolus; Site: left antecubital; 16:23 Drug: Digoxin 0.5 mg [digoxin 250 mcg/mL injection solution (2 mL)] Route: IVP; Site: jc4 left antecubital; 19:10 Follow up: Response: No Adverse Reaction tm5 16:31 Drug: vancomycin 125 mg Route: PO; jc4 19:10 Follow up: Response: No Adverse Reaction tm5 Signatures: Dispatcher [employer] EDMS Delaney Perez MD MD sd1 Cyndi Claudio, [employer] lbd Kath Christine RN RN jo3 Ezra Santana, Reg Reg kf3 Kath Casillas RN RN jc4 Sylvia Musa RN RN pml Beck, Gabriela gjb Robie, Kathleen RN kr3 Ann-Marie Lopez RN tm5 The chart was reviewed and I authenticate all verbal orders and agree with the evaluation and treatment provided.Corrections: (The following items were deleted from the chart) 18:15 13:08 CLOSTRIDIUM DIFFICILE PCR+TOM ordered. EDMS EDMS 18:15 18:13 GASTROINTESTINAL (GI) PANEL ordered. EDMS EDMS 11/27 08:55 11/26 11:48 NOTHING BY MOUTH+DIET ordered. EDMS EDMS 11/27 08:55 11/26 19:01 NPO DIET ordered. EDMS EDMS Attachments: 15:43 [facility] Payment Agreement gj Chart Complete MTDD
--- NOTE | 2016-12-01 14:01 | EDDOCDS ---
Physician Documentation [facility] Name: Anjum Klein Age: 76 yrs Sex: Female : 1940 Arrival Date: 11/26/2016 Time: 11:30 Bed Admit Hold Private MD: Mai Valenzuela L Disposition: 11/26/16 14:55 Hospitalization ordered by Santo Broderick for Inpatient Admission. Preliminary diagnosis is Sepsis, unspecified organism. - Bed requested for M ICU. - Status is Inpatient Admission. pml - Condition is Stable. - Problem is new. - Symptoms are unchanged. Historical: - Allergies: Demerol; Codeine Sulfate; - Home Meds: 1. Namenda XR 28 mg oral CSpX 1 cap once daily 2. refresh eye drops twice daily 3. Arthritis Pain Relief 650 mg twice daily 4. 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 No barriers to communication noted, The patient speaks fluent [place], Speaks appropriately for age. - Family history: Not pertinent. - : The pt / caregiver states he / she is not on anticoagulants. Home medication list is obtained from family members. - Exposure Risk Screening:: None identified. Vital Signs: 11/26 11:33 BP 133 / 103; Pulse 124; Resp 18 S; Temp 98.8; Pulse Ox 95% on R/A; dd6 11:55 BP 97 / 61 (auto/); jc4 11:56 Temp 101.8(O); nb2 11:56 Pulse 122 MON; Pulse Ox 92% ; jc4 12:56 Pulse Ox 94% ; jc4 13:01 Weight 68.04 kg / 150 lbs (R); Height 5 ft. 2 in. (157.48 cm) (R); jc4 13:01 BP 89 / 55 (auto/); jc4 13:17 BP 91 / 56 (auto/); jc4 13:18 Pulse 110 MON; Pulse Ox 93% ; jc4 13:21 Resp 32 S; Pulse Ox 93% on R/A; jc4 13:40 Pulse 112 MON; Pulse Ox 92% ; jc4 13:47 BP 88 / 54 (auto/); jc4 14:17 BP 87 / 60 (auto/); Resp 36 S; jc4 14:19 Pulse 108 MON; Pulse Ox 94% ; jc4 14:39 Temp 99.3(A); jc4 14:47 BP 85 / 50 (auto/); jc4 14:48 Pulse 104 MON; Pulse Ox 95% ; jc4 15:17 BP 87 / 53 (auto/); jc4 15:17 Pulse 98 MON; Pulse Ox 95% ; jc4 15:24 Pulse 98 MON; Pulse Ox 96% ; jc4 15:25 BP 88 / 53 (auto/); jc4 15:57 Pulse 176 MON; Pulse Ox 95% ; jc4 15:58 BP 83 / 52 (auto/); jc4 16:02 BP 83 / 51 (auto/); jc4 16:02 Pulse 176 MON; Pulse Ox 96% ; jc4 16:17 BP 77 / 52 (auto/); jc4 16:17 Pulse 180 MON; Pulse Ox 96% ; jc4 16:32 BP 82 / 56 (auto/); jc4 16:32 Pulse 184 MON; Pulse Ox 95% ; jc4 16:47 BP 78 / 48 (auto/); jc4 16:47 Pulse 180 MON; Pulse Ox 96% ; jc4 17:00 Pulse 176 MON; Pulse Ox 95% ; jc4 17:02 BP 74 / 57 (auto/); jc4 17:17 BP 86 / 53 (auto/); jc4 17:24 Pulse 166 MON; Pulse Ox 96% ; jc4 17:32 BP 90 / 51 (auto/); jc4 17:32 Pulse 166 MON; Pulse Ox 95% ; jc4 17:47 BP 83 / 50 (auto/); jc4 17:47 Pulse 168 MON; Pulse Ox 95% ; jc4 18:02 BP 81 / 50 (auto/); jc4 18:02 Pulse 162 MON; Pulse Ox 95% ; jc4 18:17 BP 74 / 46 (auto/); jc4 18:17 Pulse 162 MON; Pulse Ox 94% ; jc4 18:32 BP 76 / 49 (auto/); jc4 18:33 Pulse 160 MON; Pulse Ox 94% ; jc4 18:33 Resp 32 S; jc4 18:47 BP 80 / 51 (auto/); jc4 18:49 Pulse 164 MON; Pulse Ox 96% ; jc4 19:17 BP 82 / 50; Pulse 158; Resp 22; Temp 97.8(A); Pulse Ox 96% on 2 lpm NC; Pain 0/10; tm5 20:19 BP 74 / 39; Pulse 92; Resp 20; Pulse Ox 96% on 2 lpm NC; tm5 21:08 BP 104 / 63; Pulse 67; Resp 18; Pulse Ox 96% on 2 lpm NC; tm5 11/27 16:38 BP 126 / 69; Pulse 75; Resp 18; Temp 98.2; Pulse Ox 94% on R/A; pml 11/26 13:01 Body Mass Index 27.44 (68.04 kg, 157.48 cm) jc4 MDM: 11/26 11:46 -Blood Culture (Adults Only), peripheral from different site, or from device/port/PICC sd1 etc. if present ordered. 11:46 Brake Repairer Air/Pulse Ox/q 30 min VS ordered. sd1 11:47 Amylase Ordered. EDMS 11:47 Basic Metabolic Profile Ordered. EDMS 11:47 CBC with Diff Ordered. EDMS 11:47 Lipase Ordered. EDMS 11:47 Liver Profile Ordered. EDMS 11:47 Lactic Acid (Murillo tube on ice) Ordered. EDMS 11:47 -Blood Culture Ordered. EDMS 11:48 Chest, 1 View Ordered. EDMS 11:48 UA Ordered. EDMS 11:48 Urine Culture Ordered. EDMS 12:13 Tellez ordered. jc4 12:24 NS 0.9% 1000 ml IV at 150 mL/hr continuous ordered. sd1 12:25 Cefepime 2 grams IVPB at 100 mL/hr once over 30 mins; dilute in 50mL of NS or D5W sd1 ordered. 12:25 DIFFERENTIAL NO CHARGE Ordered. EDMS 12:31 Acetaminophen Suppository 650 mg MS once ordered. jc4 12:43 -Blood Culture (Adults Only), peripheral from different site, or from device/port/PICC lbd etc. if present complete. 12:46 BLOOD CULTURES Ordered. EDMS 13:04 NS 0.9% (Sepsis- hypotension or lactate >4mmol/L, 30ml/kg) 30 ml/kg IV at bolus once; sd1 Give in 500mL aliquots, assess for rales after each,2100cc ordered. 13:09 BED REQUEST+ADM ordered. EDMS 13:28 Amylase Reviewed. sd1 13:28 Basic Metabolic Profile Reviewed. sd1 13:28 CBC with Diff Reviewed. sd1 13:28 Lipase Reviewed. sd1 13:28 Liver Profile Reviewed. sd1 13:28 UA Reviewed. sd1 13:28 Lactic Acid (Murillo tube on ice) Reviewed. sd1 13:28 PLATELET ESTIMATE Reviewed. sd1 13:30 CT ABD & PELVIS: No Contrast Ordered. EDMS 13:30 CT Chest Without Contrast Ordered. EDMS 14:06 ECG WITH READING ER PHYS+CARDIAG ordered. EDMS 15:14 vancomycin 125 mg PO once ordered. sd1 15:35 Financial registration complete. [facility] 15:43 [facility] Payment Agreement was scanned into [employer] and attached to record. gjb 15:47 ECG WITH READING ER PHYS+CARDIAG ordered. EDMS 16:02 Digoxin 0.5 mg IVP once ordered. sd1 18:15 GASTROINTESTINAL (GI) PANEL Ordered. EDMS 19:01 Admission / Observation Status ordered. EDMS 19:01 TROPONIN Ordered. EDMS 19:01 LACTIC ACID LEVEL, LACTATE Ordered. EDMS 19:02 COMPLETE BLOOD COUNT Ordered. EDMS 19:02 BASIC METABOLIC PROFILE Ordered. EDMS 19:33 TROPONIN Ordered. EDMS 19:33 TROPONIN Ordered. EDMS 19:33 BASIC METABOLIC PROFILE Ordered. EDMS 19:33 COMPLETE BLOOD COUNT Ordered. EDMS 01 08:56 PUREED DIET ordered. EDMS 11/28 19:24 Trend VS was scanned into [employer] and attached to record. kf3 Administered Medications: 11/26 12:50 Drug: Acetaminophen 650 mg [acetaminophen 650 mg rectal suppository (1 supp)] Route: MS;jc4 14:39 Follow up: Temp 99.3 Axillary jc4 12:57 Drug: NS 0.9% 1000 ml [sodium chloride 0.9 % intravenous solution] Route: IV; Rate: 150 jc4 mL/hr; Site: left antecubital; 13:18 Drug: Cefepime 2 grams [cefepime 2 gram solution for injection] Route: IVPB; Rate: 100 jc4 mL/hr; Infused Over: 30 mins; Site: left antecubital; 13:55 Follow up: IV Status: Completed infusion kr3 13:18 Drug: NS 0.9% (Sepsis- hypotension or lactate >4mmol/L, 30ml/kg) 2041.2 ml [sodium jc4 chloride 0.9 % intravenous solution] Route: IV; Rate: bolus; Site: left antecubital; 16:23 Drug: Digoxin 0.5 mg [digoxin 250 mcg/mL injection solution (2 mL)] Route: IVP; Site: jc4 left antecubital; 19:10 Follow up: Response: No Adverse Reaction tm5 16:31 Drug: vancomycin 125 mg Route: PO; jc4 19:10 Follow up: Response: No Adverse Reaction tm5 Signatures: Dispatcher [employer] EDMS Delaney Perez MD MD sd1 Cyndi Claudio, Clinical Application Specialist Unit lbd Kath Christine RN RN jo3 Ezra Santana, Reg Reg kf3 Kath Casillas RN RN jc4 Sylvia Musa RN RN pml Beck, Gabriela gjb Robie, Kathleen RN kr3 Ann-Marie Lopez RN tm5 The chart was reviewed and I authenticate all verbal orders and agree with the evaluation and treatment provided.Corrections: (The following items were deleted from the chart) 18:15 13:08 CLOSTRIDIUM DIFFICILE PCR+TOM ordered. EDMS EDMS 18:15 18:13 GASTROINTESTINAL (GI) PANEL ordered. EDMS EDMS 11/27 08:55 11/26 11:48 NOTHING BY MOUTH+DIET ordered. EDMS EDMS 11/27 08:55 11/26 19:01 NPO DIET ordered. EDMS EDMS Attachments: 15:43 [facility] Payment Agreement gj Chart Complete MTDD
--- NOTE | 2016-12-01 14:01 | EDDOCDS ---
Nurse's Notes [facility] Name: Anjum Klein Age: 76 yrs Sex: Female : 1940 Arrival Date: 11/26/2016 Time: 11:30 Bed Admit Hold Private MD: Mai Valenzuela L Diagnosis: Sepsis, unspecified organism Presentation: 11/26 11:38 Presenting complaint: Daughter states that pt had D&C and LEEP procedure yesterday for jo3 abnormal vaginal discharge and dysplasia of cervix. Fever of 102 today. Pt has not returned to baseline responsiveness since the surgery. Sent home by Dr Valenzuela yesterday under the assumption that pt would return to baseline. Adult Sepsis Screening: Patient has new or worsening altered mentation (1 point). Patient's respiratory rate is less than 22. Systolic blood pressure is greater than 100. Patient has a qSOFA score of 0- Negative Sepsis Screen. Suicide/Homicide risk assessment- the patient denies having any suicidal and/or homicidal ideations and does not present with any other emotional, behavioral or mental health complaints. Status: Patient is not a customer service attendant or dependent. Transition of care: patient was not received from another setting of care. 11:38 Acuity: CRIS Level 3 jo3 11:38 Method Of Arrival: Walkin/Carried/Asstd jo3 Triage Assessment: 11:44 General: Appears in no apparent distress, uncomfortable, Behavior is quiet. jo3 Neurological: Level of Consciousness is awake. Derm: Skin is pink, warm & dry. Historical: - Allergies: Demerol; Codeine Sulfate; - Home Meds: 1. Namenda XR 28 mg oral CSpX 1 cap once daily 2. refresh eye drops twice daily 3. Arthritis Pain Relief 650 mg twice daily 4. 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 No barriers to communication noted, The patient speaks fluent Korean, Speaks appropriately for age. - Family history: Not pertinent. - : The pt / caregiver states he / she is not on anticoagulants. Home medication list is obtained from family members. - Exposure Risk Screening:: None identified. Screenin:41 Screening information is obtained from family members. Fall risk: At risk due to jc4 apparent cognitive impairment, The following interventions are performed due to a positive Fall Risk Screen: Fall Risk is added to Special Handling on the patient Summary Screen. A Fall Risk Bracelet was applied to the patient. Side Rails are placed in the up position. A Call Worrell is given with instruction to call for help when getting out of bed. Assistance ADL's: Requires assistance with meal preparation, this assistance is provided by family members, bathing, assistance is provided by family members, dressing, assistance is provided by family members, toileting, assistance is provided by family members, ambulation, assistance is provided by family members, housework, assistance is provided by family members, medication administration, assistance is provided by family members. Abuse/DV Screen: The patient / caregiver reports he/she is: pt cannot be assessed for living situation at this time. Nutritional screening: diarrhea for the past few days, has been vomiting since procedure. Advance Directives: There is an active DNR order and the pt has a copy here at this time. home support is adequate. Assessment: 13:19 General: Appears ill, Behavior is eyes open, smiling. No verbal response which daughter trevor states is baseline mental status. Pain: Unable to use pain scale. Neurological: Level of Consciousness is awake. EENT: Oral mucosa is dry. Cardiovascular: Rhythm is sinus tachycardia No ectopy. Respiratory: Airway is patent Respiratory effort is unlabored, Respiratory pattern is regular, tachypnea Breath sounds are clear bilaterally. GI: Abdomen is non- distended Bowel sounds present X 4 quads. Abd is soft and non tender X 4 quads. : Urine is light tea colored. Tellez catheter in place. Derm: Skin is dry, Skin is flushed, Skin temperature is hot. 13:30 General: Bruising and swelling noted to left hand, daughter states that pt had IV jc4 placed in hand yesterday. 14:39 General: Pt with eyes closed on stretcher. Color pink, skin warm and dry. Pt opens jc4 eyes, non-verbal. Respirations 36/minute, breath sounds are clear. SaO2-91%, patient placed on 2 liters nasal canula. Daughter at bedside, supportive and loving. . 15:38 General: Pt lying on stretcher. No distress noted. Color pink, skin warm and dry. jc4 Respirations easy, resp 32/minute. Lungs clear. IVF bolus continuing. Daughter inquiring regarding pathology results. Dr. Perez consulted. 15:45 General: Pt lying on stretcher with eyes closed. Respirations 36/minute, SaO2-94% on 2 jc4 liters nasal canula. Heart rate 180 bpm, narrow complex tachycardia. Dr. Perez notified. 16:02 General: Swabs given for oral care. Daughter assisting in care, who is loving and jc4 supportive. 16:31 General: Dr. Valenzuela in to examine patient, and speak with family. jc4 16:33 General: Pt with eyes open. Non-verbal. Color pink, skin warm and dry. Respirations jc4 32/minute. playground monitor - narrow complex tachycardia, rate 184 bpm. Pt maintained on 2 liters nasal canula. IVF infusing well, site clear. 16:38 General: Lungs clear. Respirations 32/minute, SaO2-95% on 2 liters nasal canula. IVF jc4 bolus continued, site clear. 17:54 General: Daughter, son and [id number] at the bedside. Pt's MOLST form reviewed jc4 with them per their request. Pt with eyes closed on stretcher. Color pink, skin warm and dry. Respirations 32/minute. playground monitor - narrow complex tachycardia, rate 163 bpm. IVF infusing well, site clear. Pt has been placed on bedpan as daughter felt she looked uncomfortable, but patient did not have BM. 18:24 General: Dr. Zapata in to examine patient and speak with family. jc4 19:17 General: Appears ill, Behavior is non-verbal pt which per daughter is pt's baseline, pt tm5 smiles at this RN while providing care . Pain: Unable to use pain scale. pt is non-verbal. Neurological: Level of Consciousness is awake. Cardiovascular: Rhythm is sinus tachycardia No ectopy. Respiratory: Airway is patent Respiratory effort is even, unlabored, Respiratory pattern is regular, Breath sounds are clear bilaterally. GI: Abdomen is non- distended Bowel sounds present X 4 quads. Abd is soft and non tender X 4 quads. Derm: Skin is pink, warm & dry. normal. 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 tm5 20:19 Reassessment: Patient appears in no apparent distress at this time. Patient states tm5 symptoms have improved. pt was repositioned to her left side by family & this RN, pt appears to be in no distress, Heart rate has decreased to Sinus rhythm after repositioning pt . Cardiovascular: Rhythm is sinus rhythm No ectopy. 21:08 Reassessment: Patient appears in no apparent distress at this time. pt is more alert at tm5 this time, daughter is doing mouth care on pt right now, no s/s of any distress. Cardiovascular: Rhythm is sinus rhythm No ectopy. 22:30 General: pt placed in hospital bed & placed in Rm 21 for Hold admission . tm5 11/27 07:28 General: Appears uncomfortable, Behavior is appropriate for age, cooperative. pml Neurological: Level of Consciousness is awake, alert, obeys commands. Cardiovascular: Capillary refill < 3 seconds Rhythm is sinus rhythm No ectopy. Respiratory: Airway is patent Respiratory effort is even, unlabored. GI: Abdomen is non- distended. Derm: Skin is pink, warm & dry. 09:34 General: pt awake and alert, obeying commands, tolerating sips of pudding thick pml cranberry juice without difficulty. answers questions with one word answers appropriately. family at bedside. 12:00 General: Appears in no apparent distress, comfortable, Behavior is appropriate for age, pml cooperative. Pain: Denies pain. Neurological: Level of Consciousness is awake, alert. Cardiovascular: Capillary refill < 3 seconds. Cardiovascular: Rhythm is sinus rhythm No ectopy. Respiratory: Airway is patent Respiratory effort is even, unlabored. Derm: Skin is pink, warm & dry. 16:38 General: Appears in no apparent distress, Behavior is appropriate for age, cooperative. pml Pain: Denies pain. Neurological: Level of Consciousness is awake, alert, obeys commands. Cardiovascular: Capillary refill < 3 seconds Rhythm is sinus rhythm No ectopy. Respiratory: Airway is patent Respiratory effort is even, unlabored. GI: Abdomen is non- distended. Derm: Skin is pink, warm & dry. Vital Signs: 11/26 11:33 BP 133 / 103; Pulse 124; Resp 18 S; Temp 98.8; Pulse Ox 95% on R/A; dd6 11:55 BP 97 / 61 (auto/); jc4 11:56 Temp 101.8(O); nb2 11:56 Pulse 122 MON; Pulse Ox 92% ; jc4 12:56 Pulse Ox 94% ; jc4 13:01 Weight 68.04 kg (R); Height 5 ft. 2 in. (157.48 cm) (R); jc4 13:01 BP 89 / 55 (auto/); jc4 13:17 BP 91 / 56 (auto/); jc4 13:18 Pulse 110 MON; Pulse Ox 93% ; jc4 13:21 Resp 32 S; Pulse Ox 93% on R/A; jc4 13:40 Pulse 112 MON; Pulse Ox 92% ; jc4 13:47 BP 88 / 54 (auto/); jc4 14:17 BP 87 / 60 (auto/); Resp 36 S; jc4 14:19 Pulse 108 MON; Pulse Ox 94% ; jc4 14:39 Temp 99.3(A); jc4 14:47 BP 85 / 50 (auto/); jc4 14:48 Pulse 104 MON; Pulse Ox 95% ; jc4 15:17 BP 87 / 53 (auto/); jc4 15:17 Pulse 98 MON; Pulse Ox 95% ; jc4 15:24 Pulse 98 MON; Pulse Ox 96% ; jc4 15:25 BP 88 / 53 (auto/); jc4 15:57 Pulse 176 MON; Pulse Ox 95% ; jc4 15:58 BP 83 / 52 (auto/); jc4 16:02 BP 83 / 51 (auto/); jc4 16:02 Pulse 176 MON; Pulse Ox 96% ; jc4 16:17 BP 77 / 52 (auto/); jc4 16:17 Pulse 180 MON; Pulse Ox 96% ; jc4 16:32 BP 82 / 56 (auto/); jc4 16:32 Pulse 184 MON; Pulse Ox 95% ; jc4 16:47 BP 78 / 48 (auto/); jc4 16:47 Pulse 180 MON; Pulse Ox 96% ; jc4 17:00 Pulse 176 MON; Pulse Ox 95% ; jc4 17:02 BP 74 / 57 (auto/); jc4 17:17 BP 86 / 53 (auto/); jc4 17:24 Pulse 166 MON; Pulse Ox 96% ; jc4 17:32 BP 90 / 51 (auto/); jc4 17:32 Pulse 166 MON; Pulse Ox 95% ; jc4 17:47 BP 83 / 50 (auto/); jc4 17:47 Pulse 168 MON; Pulse Ox 95% ; jc4 18:02 BP 81 / 50 (auto/); jc4 18:02 Pulse 162 MON; Pulse Ox 95% ; jc4 18:17 BP 74 / 46 (auto/); jc4 18:17 Pulse 162 MON; Pulse Ox 94% ; jc4 18:32 BP 76 / 49 (auto/); jc4 18:33 Pulse 160 MON; Pulse Ox 94% ; jc4 18:33 Resp 32 S; jc4 18:47 BP 80 / 51 (auto/); jc4 18:49 Pulse 164 MON; Pulse Ox 96% ; jc4 19:17 BP 82 / 50; Pulse 158; Resp 22; Temp 97.8(A); Pulse Ox 96% on 2 lpm NC; Pain 0/10; tm5 20:19 BP 74 / 39; Pulse 92; Resp 20; Pulse Ox 96% on 2 lpm NC; tm5 21:08 BP 104 / 63; Pulse 67; Resp 18; Pulse Ox 96% on 2 lpm NC; tm5 11/27 16:38 BP 126 / 69; Pulse 75; Resp 18; Temp 98.2; Pulse Ox 94% on R/A; pml 11/26 13:01 Body Mass Index 27.44 (68.04 kg, 157.48 cm) [facility] Vitals: 11/26 11:33 Log In Time: November 26, 2016 at 11:31. dd6 ED Course: 11:32 Patient visited by James Jalloh PCA. dd6 11:32 Patient moved to Waiting dd6 11:33 Mai Valenzuela is Private Physician. dd6 11:34 Patient moved to Pre RCE dd6 11:42 Triage Initiated jo3 11:43 Kath Casillas RN is Primary Nurse. ttb 11:43 Jeniffer Barraza RN is Primary Nurse. ttb 11:43 Patient moved to 17 ttb 11:45 Patient visited by Kath Christine RN. jo3 11:56 Patient visited by Ailyn Grimm. nb2 11:56 Placed in gown. Bed in low position. Call light in reach. Side rails up X2. Cardiac nb2 monitor on. Pulse ox on. NIBP on. 12:03 Delaney Perez MD is Attending Physician. sd1 12:05 Patient visited by Delaney Perez MD. sd1 12:55 Inserted saline lock: 20 gauge in left antecubital area The patient tolerated the jc4 procedure well. 12:57 DIFFERENTIAL NO CHARGE Sent. jc4 12:58 Urine Culture Sent. jc4 12:58 UA Sent. jc4 12:58 Tellez cath inserted 16 Fr. Balloon inflated. To gravity drainage. Urine specimen jc4 collected. Patient tolerated well. 13:19 The patient / caregiver is instructed regarding the plan of care and ED course. jc4 13:21 Patient visited by Kath Casillas, ADRIA. jc4 14:27 Patient visited by Ktah Casillas RN. jc4 14:36 Chest, 1 View Returned. EDMS 14:42 EKG done. (by ED staff). Reviewed by Delaney Perez MD. nb2 14:43 Patient visited by Ailyn Grimm. nb2 14:55 Santo Broderick is Hospitalizing Provider. sd1 15:25 CT Chest Without Contrast Returned. EDMS 15:25 CT ABD & PELVIS: No Contrast Returned. EDMS 15:43 [facility] Payment Agreement was scanned into [employer] and attached to record. gjb 15:53 EKG done. (by ED staff). Reviewed by Delaney Perez MD. nb2 16:03 Patient visited by Ailyn Grimm. nb2 19:07 Patient moved to Admit Hold daq 19:11 Patient visited by Ann-Marie Lopez,ADRIA. tm5 19:11 Report received from Mariangel Dixon RN, assumed care of pt at this time. tm5 19:12 Awaiting bed assignment. tm5 19:17 Patient visited by Ann-Marie Lopez,ADRIA. tm5 19:31 Patient visited by Ann-Marie Lopez,ADRIA. tm5 19:43 EKG-ADULT Returned. EDMS 19:43 EKG-ADULT Returned. EDMS 20:24 Patient visited by Ann-Marie Lopez RN. tm5 20:24 family notified that pt will be a holding pt in the ER due to no admission beds in the [address], family is understanding of this . 21:48 Primary Nurse role handed off by Jeniffer Barraza,ADRIA jp6 22:29 Patient visited by Ann-Marie Lopez RN. tm5 22:30 Patient moved to 21 [facility] 22:45 Primary Nurse role handed off by Kath Casillas RN [facility] 11/27 03:47 Patient moved to Admit Hold kmg1 07:28 Patient visited by Sylvia Musa,ADRIA. pml 09:35 Patient visited by Sylvia Musa,ADRIA. pml 12:00 Patient visited by Sylvia Musa,ADRIA. pml 16:38 No procedures done that require assistance. pml 11/28 19:24 Trend VS was scanned into [employer] and attached to record. kf3 Administered Medications: 11/26 12:50 Drug: Acetaminophen 650 mg [acetaminophen 650 mg rectal suppository (1 supp)] Route: LA;jc4 14:39 Follow up: Temp 99.3 Axillary jc4 12:57 Drug: NS 0.9% 1000 ml [sodium chloride 0.9 % intravenous solution] Route: IV; Rate: 150 jc4 mL/hr; Site: left antecubital; 13:18 Drug: Cefepime 2 grams [cefepime 2 gram solution for injection] Route: IVPB; Rate: 100 jc4 mL/hr; Infused Over: 30 mins; Site: left antecubital; 13:55 Follow up: IV Status: Completed infusion kr3 13:18 Drug: NS 0.9% (Sepsis- hypotension or lactate >4mmol/L, 30ml/kg) 2041.2 ml [sodium jc4 chloride 0.9 % intravenous solution] Route: IV; Rate: bolus; Site: left antecubital; 16:23 Drug: Digoxin 0.5 mg [digoxin 250 mcg/mL injection solution (2 mL)] Route: IVP; Site: jc4 left antecubital; 19:10 Follow up: Response: No Adverse Reaction tm5 16:31 Drug: vancomycin 125 mg Route: PO; jc4 19:10 Follow up: Response: No Adverse Reaction tm5 Attachments: 11/28 19:24 Trend VS kf3 Intake: 11/26 14:30 IV: 500.00ml (NS); Total: 500.00ml. jc4 15:38 IV: 500.00ml (NS); Total: 1000.00ml. jc4 16:39 IV: 500.00ml (NS); Total: 1500.00ml. jc4 18:23 IV: 500.00ml (NS); Total: 2000.00ml. jc4 Order Results: Lab Order: Amylase; SPEC'M 11/26/16 12:07 Test: AMYLASE; Value: 16; Range: 25-115; Abnormal: Below low normal; Units: U/L; Status: F Lab Order: Basic Metabolic Profile; SPEC'M 11/26/16 12:07 Test: GLUCOSE, FASTING; Value: 117; Range: 83-110; Abnormal: Above high normal; Units: MG/DL; Status: F Test: BLOOD UREA NITROGEN; Value: 28; Range: 7-18; Abnormal: Above high normal; Units: MG/DL; Status: F Test: CREATININE FOR GFR; Value: 1.49; Range: 0.55-1.02; Abnormal: Above high normal; Units: MG/DL; Status: F Test: GLOMERULAR FILTRATION RATE; Value: 36.2; Range: >39; Abnormal: Below low normal; Status: F Test: SODIUM LEVEL; Value: 141; Range: 136-145; Units: MEQ/L; Status: F Test: POTASSIUM SERUM; Value: 3.3; Range: 3.5-5.1; Abnormal: Below low normal; Units: MEQ/L; Status: F Test: CHLORIDE LEVEL; Value: 108; Range: 98-107; Abnormal: Above high normal; Units: MEQ/L; Status: F Test: CARBON DIOXIDE LEVEL; Value: 23; Range: 21-32; Units: MEQ/L; Status: F Test: ANION GAP; Value: 10; Range: 8-16; Units: MEQ/L; Status: F Test: CALCIUM LEVEL; Value: 8.5; Range: 8.8-10.2; Abnormal: Below low normal; Units: MG/DL; Status: F Test Note: ; Units are mL/min/1.73 m2 Chronic Kidney Disease Staging per NKF: Stage I & II GFR >=60 Normal to Mildly Decreased Stage III GFR 30-59 Moderately Decreased Stage IV GFR 15-29 Severely Decreased Stage V GFR <15 Very Little GFR Left ESRD GFR <15 on TOURIST CABIN KEEPER Lab Order: CBC with Diff; SPEC'M 11/26/16 12:07 Test: WHITE BLOOD COUNT; Value: 28.5; Range: 4.0-10.0; Abnormal: Above high normal; Units: K/mm3; Status: F Test: RED BLOOD COUNT; Value: 3.77; Range: 4.00-5.40; Abnormal: Below low normal; Units: M/mm3; Status: F Test: HEMOGLOBIN; Value: 11.6; Range: 12.0-16.0; Abnormal: Below low normal; Units: g/dl; Status: F Test: HEMATOCRIT; Value: 34.1; Range: 36.0-47.0; Abnormal: Below low normal; Units: %; Status: F Test: MEAN CORPUSCULAR VOLUME; Value: 90.5; Range: 80.0-96.0; Units: fl; Status: F Test: MEAN CORPUSCULAR HEMOGLOBIN; Value: 30.8; Range: 27.0-33.0; Units: pg; Status: F Test: MEAN CORPUSCULAR HGB CONC; Value: 34.0; Range: 32.0-36.5; Units: g/dl; Status: F Test: RED CELL DISTRIBUTION WIDTH; Value: 13.0; Range: 11.5-14.5; Units: %; Status: F Test: PLATELET COUNT, AUTOMATED; Value: 139; Range: 150-450; Abnormal: Below low normal; Units: k/mm3; Status: F Test: NEUTROPHILS; Value: 84; Range: 35-75; Abnormal: Above high normal; Units: %; Status: F Test: BANDS; Value: 10; Range: < 11; Units: %; Status: F Test: MONOCYTES; Value: 3; Range: 0-8; Units: %; Status: F Test: ATYPICAL LYMPH; Value: 3; Range: 0-5; Units: %; Status: F Test: RBC MORPHOLOGY; Value: NORMAL; Status: F Lab Order: Lipase; SPEC'M 11/26/16 12:07 Test: LIPASE; Value: 42; Range: 73-393; Abnormal: Below low normal; Units: U/L; Status: F Lab Order: Liver Profile; SPEC'M 11/26/16 12:07 Test: AST/SGOT; Value: 83; Range: 15-37; Abnormal: Above high normal; Units: U/L; Status: F Test: ALT/SGPT; Value: 50; Range: 12-78; Units: U/L; Status: F Test: ALKALINE PHOSPHATASE; Value: 73; Range: 45-117; Units: U/L; Status: F Test: BILIRUBIN,TOTAL; Value: 0.5; Range: 0.2-1.0; Units: MG/DL; Status: F Test: BILIRUBIN,DIRECT; Value: 0.1; Range: 0.0-0.2; Units: MG/DL; Status: F Test: TOTAL PROTEIN; Value: 6.4; Range: 6.4-8.2; Units: GM/DL; Status: F Test: ALBUMIN; Value: 2.9; Range: 3.2-5.2; Abnormal: Below low normal; Units: GM/DL; Status: F Test: ALBUMIN/GLOBULIN RATIO; Value: 0.83; Range: 1.00-1.93; Abnormal: Below low normal; Status: F Lab Order: Lactic Acid (Murillo tube on ice); SPEC'M 11/26/16 12:07 Test: LACTIC ACID LEVEL, LACTATE; Value: 2.0; Range: 0.4-2.0; Units: MMOL/L; Status: F Lab Order: -Blood Culture; SPEC'M 11/26/16 12:06 Test: BLOOD CULTURE; Value: No growth after 24 hours . All specimens observed; Status: F Test: BLOOD CULTURE; Value: for 7 days. Results final at that time.; Status: F Lab Order: UA; SPEC'M 11/26/16 12:50 Test: APPEARANCE, URINE; Value: CLOUDY; Range: CLEAR; Abnormal: Above high normal; Status: F Test: COLOR, URINE; Value: MARE; Range: YELLOW; Status: F Test: PH,URINE; Value: 5.0; Range: 5.0-9.0; Units: UNITS; Status: F Test: SPECIFIC GRAVITY URINE AUTO; Value: 1.026; Range: 1.002-1.035; Status: F Test: PROTEIN, URINE AUTO; Value: 2+; Range: NEGATIVE; Abnormal: Above high normal; Units: mg/dL; Status: F Test: GLUCOSE, URINE (UA) AUTO; Value: NEGATIVE; Range: NEGATIVE; Units: mg/dL; Status: F Test: KETONE, URINE AUTO; Value: NEGATIVE; Range: NEGATIVE; Units: mg/dL; Status: F Test: UROBILINOGEN, URINE AUTO; Value: 0.2; Range: 0.0-2.0; Units: mg/dL; Status: F Test: BILIRUBIN, URINE AUTO; Value: NEGATIVE; Range: NEGATIVE; Status: F Test: NITRITE, URINE AUTO; Value: POSITIVE; Range: NEGATIVE; Status: F Test: LEUKOCYTE ESTERASE, URINE AUTO; Value: NEGATIVE; Range: NEGATIVE; Status: F Test: BLOOD, URINE BLOOD; Value: 1+; Range: NEGATIVE; Abnormal: Above high normal; Status: F Test: WBC, URINE AUTO; Value: 13; Range: 0-3; Abnormal: Above high normal; Units: /HPF; Status: F Test: RBC, URINE AUTO; Value: 4; Range: 0-3; Abnormal: Above high normal; Units: /HPF; Status: F Test: BACTERIA, URINE AUTO; Value: 1+; Range: NEGATIVE; Abnormal: Above high normal; Status: F Test: SQUAMOUS EPITHELIAL CELL UR AU; Value: 2; Range: 0-6; Units: /HPF; Status: F Test: TRANSITIONAL EPITHELIAL AUTO; Value: 1; Range: NONE; Units: /HPF; Status: F Test: RENAL EPITHELIAL CELLS; Value: 1; Range: NONE; Units: /HPF; Status: F Test: MUCUS, URINE; Value: SMALL; Range: NEGATIVE; Status: F Test: HYALINE CAST, URINE AUTO; Value: 6; Range: 0-1; Units: /LPF; Status: F Test: GRANULAR CAST, URINE AUTO; Value: 19; Range: NONE; Units: /LPF; Status: F Test: AMORPHOUS SEDIMENT; Value: MODERATE; Range: NEGATIVE; Abnormal: Above high normal; Status: F Lab Order: PLATELET ESTIMATE; SPEC'M 11/26/16 12:07 Test: PLATELET ESTIMATE; Value: NORMAL; Range: NORMAL; Status: F Lab Order: BLOOD CULTURES; SPEC'M 11/26/16 12:28 Test: BLOOD CULTURE; Value: No growth after 24 hours . All specimens observed; Status: F Test: BLOOD CULTURE; Value: for 7 days. Results final at that time.; Status: F Lab Order: TROPONIN; SPEC'M 11/26/16: Test: TROPONIN I; Value: 0.11; Range: < 0.10; Abnormal: Above high normal; Units: NG/ML; Status: F Test Note: ; Troponin I Reference Interval for [facility] [place] LOCI: 99th Percentile= 0.00-0.045 ng/ml Risk Stratification: <= 0.10 ng/ml Decreased Risk for Adverse Clinical Events. 0.10-1.50 ng/ml Increased Risk for Adverse Clinical Events. Evaluation of additional criterion and/or repeat testing in 2-6 hours is suggested to rule out myocardial damage. >= 1.50 ng/ml Indicative of Myocardial Injury. Lab Order: LACTIC ACID LEVEL, LACTATE; SPEC' 11/26/16: Test: LACTIC ACID LEVEL, LACTATE; Value: 1.6; Range: 0.4-2.0; Units: MMOL/L; Status: F Lab Order: COMPLETE BLOOD COUNT; SPEC' 11/26/16 Test: WHITE BLOOD COUNT; Value: 26.4; Range: 4.0-10.0; Abnormal: Above high normal; Units: K/mm3; Status: F Test: RED BLOOD COUNT; Value: 3.31; Range: 4.00-5.40; Abnormal: Below low normal; Units: M/mm3; Status: F Test: HEMOGLOBIN; Value: 10.3; Range: 12.0-16.0; Abnormal: Below low normal; Units: g/dl; Status: F Test: HEMATOCRIT; Value: 30.4; Range: 36.0-47.0; Abnormal: Below low normal; Units: %; Status: F Test: MEAN CORPUSCULAR VOLUME; Value: 91.8; Range: 80.0-96.0; Units: fl; Status: F Test: MEAN CORPUSCULAR HEMOGLOBIN; Value: 31.0; Range: 27.0-33.0; Units: pg; Status: F Test: MEAN CORPUSCULAR HGB CONC; Value: 33.8; Range: 32.0-36.5; Units: g/dl; Status: F Test: RED CELL DISTRIBUTION WIDTH; Value: 13.1; Range: 11.5-14.5; Units: %; Status: F Test: PLATELET COUNT, AUTOMATED; Value: 114; Range: 150-450; Abnormal: Below low normal; Units: k/mm3; Status: F Lab Order: BASIC METABOLIC PROFILE; SPECM 11/26/16 19:29 Test: GLUCOSE, FASTING; Value: 105; Range: 83-110; Units: MG/DL; Status: F Test: BLOOD UREA NITROGEN; Value: 34; Range: 7-18; Abnormal: Above high normal; Units: MG/DL; Status: F Test: CREATININE FOR GFR; Value: 1.28; Range: 0.55-1.02; Abnormal: Above high normal; Units: MG/DL; Status: F Test: GLOMERULAR FILTRATION RATE; Value: 43.2; Range: >39; Status: F Test: SODIUM LEVEL; Value: 145; Range: 136-145; Units: MEQ/L; Status: F Test: POTASSIUM SERUM; Value: 3.7; Range: 3.5-5.1; Units: MEQ/L; Status: F Test: CHLORIDE LEVEL; Value: 113; Range: 98-107; Abnormal: Above high normal; Units: MEQ/L; Status: F Test: CARBON DIOXIDE LEVEL; Value: 20; Range: 21-32; Abnormal: Below low normal; Units: MEQ/L; Status: F Test: ANION GAP; Value: 12; Range: 8-16; Units: MEQ/L; Status: F Test: CALCIUM LEVEL; Value: 7.5; Range: 8.8-10.2; Abnormal: Below low normal; Units: MG/DL; Status: F Test Note: ; Units are mL/min/1.73 m2 Chronic Kidney Disease Staging per NKF: Stage I & II GFR >=60 Normal to Mildly Decreased Stage III GFR 30-59 Moderately Decreased Stage IV GFR 15-29 Severely Decreased Stage V GFR <15 Very Little GFR Left ESRD GFR <15 on TOURIST CABIN KEEPER Lab Order: TROPONIN; SPEC'M 11/27/16 02:55 Test: TROPONIN I; Value: 1.27; Range: < 0.10; Abnormal: High; Units: NG/ML; Status: F Test Note: ; Troponin I Reference Interval for [employer] LOCI: 99th Percentile= 0.00-0.045 ng/ml Risk Stratification: <= 0.10 ng/ml Decreased Risk for Adverse Clinical Events. 0.10-1.50 ng/ml Increased Risk for Adverse Clinical Events. Evaluation of additional criterion and/or repeat testing in 2-6 hours is suggested to rule out myocardial damage. >= 1.50 ng/ml Indicative of Myocardial Injury. Lab Order: TROPONIN; SPEC'M 11/27/16 11:06 Test: TROPONIN I; Value: 0.70; Range: < 0.10; Abnormal: High; Units: NG/ML; Status: F Test Note: ; Troponin I Reference Interval for [employer] LOCI: 99th Percentile= 0.00-0.045 ng/ml Risk Stratification: <= 0.10 ng/ml Decreased Risk for Adverse Clinical Events. 0.10-1.50 ng/ml Increased Risk for Adverse Clinical Events. Evaluation of additional criterion and/or repeat testing in 2-6 hours is suggested to rule out myocardial damage. >= 1.50 ng/ml Indicative of Myocardial Injury. Lab Order: BASIC METABOLIC PROFILE; SPEC'M 11/27/16 02:55 Test: GLUCOSE, FASTING; Value: 100; Range: 83-110; Units: MG/DL; Status: F Test: BLOOD UREA NITROGEN; Value: 33; Range: 7-18; Abnormal: Above high normal; Units: MG/DL; Status: F Test: CREATININE FOR GFR; Value: 1.00; Range: 0.55-1.02; Units: MG/DL; Status: F Test: GLOMERULAR FILTRATION RATE; Value: 57.4; Range: >39; Status: F Test: SODIUM LEVEL; Value: 147; Range: 136-145; Abnormal: Above high normal; Units: MEQ/L; Status: F Test: POTASSIUM SERUM; Value: 3.4; Range: 3.5-5.1; Abnormal: Below low normal; Units: MEQ/L; Status: F Test: CHLORIDE LEVEL; Value: 114; Range: 98-107; Abnormal: Above high normal; Units: MEQ/L; Status: F Test: CARBON DIOXIDE LEVEL; Value: 22; Range: 21-32; Units: MEQ/L; Status: F Test: ANION GAP; Value: 11; Range: 8-16; Units: MEQ/L; Status: F Test: CALCIUM LEVEL; Value: 7.1; Range: 8.8-10.2; Abnormal: Below low normal; Units: MG/DL; Status: F Test Note: ; Units are mL/min/1.73 m2 Chronic Kidney Disease Staging per NKF: Stage I & II GFR >=60 Normal to Mildly Decreased Stage III GFR 30-59 Moderately Decreased Stage IV GFR 15-29 Severely Decreased Stage V GFR <15 Very Little GFR Left ESRD GFR <15 on TOURIST CABIN KEEPER Lab Order: COMPLETE BLOOD COUNT; SPEC'M 11/27/16 02:55 Test: WHITE BLOOD COUNT; Value: 20.7; Range: 4.0-10.0; Abnormal: Above high normal; Units: K/mm3; Status: F Test: RED BLOOD COUNT; Value: 3.09; Range: 4.00-5.40; Abnormal: Below low normal; Units: M/mm3; Status: F Test: HEMOGLOBIN; Value: 9.6; Range: 12.0-16.0; Abnormal: Below low normal; Units: g/dl; Status: F Test: HEMATOCRIT; Value: 28.6; Range: 36.0-47.0; Abnormal: Below low normal; Units: %; Status: F Test: MEAN CORPUSCULAR VOLUME; Value: 92.6; Range: 80.0-96.0; Units: fl; Status: F Test: MEAN CORPUSCULAR HEMOGLOBIN; Value: 31.2; Range: 27.0-33.0; Units: pg; Status: F Test: MEAN CORPUSCULAR HGB CONC; Value: 33.7; Range: 32.0-36.5; Units: g/dl; Status: F Test: RED CELL DISTRIBUTION WIDTH; Value: 13.2; Range: 11.5-14.5; Units: %; Status: F Test: PLATELET COUNT, AUTOMATED; Value: 111; Range: 150-450; Abnormal: Below low normal; Units: k/mm3; Status: F Radiology Order: Chest, 1 View Test: Chest, 1 View REASON FOR EXAMINATION: fever; PORTABLE CHEST; ; AP portable view of the chest is performed and compared to a prior study of; 07/03/2014.; ; There is poor ventilation with crowded lung markings in each lung base. No; infiltrate is seen. The cardiomediastinal silhouette appears mildly magnified.; ; IMPRESSION:; ; No definite acute infiltrate.; ; ; Signed by; Hunter Murillo MD 11/26/2016 04:28 P; Radiology Order: CT ABD & PELVIS: No Contrast Test: CT ABD & PELVIS: No Contrast REASON FOR EXAMINATION: Abdomen Pain; CT STUDY OF THE ABDOMEN AND PELVIS WITHOUT IV OR ORAL CONTRAST:; ; HISTORY: Aspiration. Abdominal pain.; ; Comparison CT study September 09, 2016.; ; FINDINGS: There are multiple low-density areas in this liver consistent with; hepatic cysts unchanged from the comparison study. No focal splenic lesion is; seen. There are however several small accessory splenules. The gallbladder is; mildly distended. It is homogeneous. There is a large cyst occupying the lower; pole left kidney. This measures 11.5 cm in AP dimension today, previously 10.7; cm on September 09, 2016. It is slightly larger. No hydronephrosis is seen. No; intrarenal calculus is observed. No retroperitoneal mass or adenopathy is seen.; Normal caliber aorta is noted. Uterus is somewhat heterogeneous consistent with; fibroid change. The endometrium appears thickened or distended. Cannot exclude; endometrial hyperplasia or malignancy. This is similar to prior CT and; ultrasound appearance. A Tellez catheter is seen within the otherwise empty; urinary bladder. No obstructive gastrointestinal lesion is seen. No abdominal; wall defect is observed. Bone window settings demonstrate degenerative spine; changes. No acute bony abnormality is seen.; ; IMPRESSION:; ; 1. Mildly distended gallbladder.; ; 2. Stable hepatic cysts.; ; 3. 11.5 cm simple cyst left kidney slightly larger than on the September 09, 2016; prior CT.; ; 4. Somewhat enlarged fibroid uterus. Endometrium appears distended similar to; prior study and recent ultrasound. I cannot exclude endometrial hyperplasia or; malignancy.; ; 5. Tellez catheter.; ; ; Signed by; Stuart Manzo MD 11/26/2016 03:50 P; Radiology Order: CT Chest Without Contrast Test: CT Chest Without Contrast REASON FOR EXAMINATION: aspiration; CT study of the chest without contrast:; ; History: Aspiration. Comparison is made with today's chest x-ray.; ; CT findings: The lungs are symmetrically aerated. There is some subsegmental; bibasilar lower lobe plate-like atelectasis bilaterally. No other infiltrate is; appreciated. No pleural effusion or pericardial effusion is seen. There is; vascular calcification. 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 This is a normal variant. The thoracic; aorta is tortuous and normal in caliber. No extrathoracic mass or adenopathy is; seen. No pulmonary mass lesion is observed. Bone window settings demonstrate; diffuse degenerative disc disease. There is mild osteoporotic wedging in several; thoracic vertebrae. No bony destructive lesion is seen.; ; Impression:; ; Mild bilateral lower lobe discoid atelectasis. Cardiomegaly. Otherwise no; acute disease.; ; ; Signed by; Stuart Manzo MD 11/26/2016 03:49 P; Radiology Order: EKG-ADULT Test: EKG-ADULT REASON FOR EXAMINATION: Abdomen Pain; Stationary ECG Study; [facility] ED; ; Test Date: 2016-11-26; Pat Name: [facility] Department:; Room: -; Gender: F Leather Roller: lyle; : 1940 Requested By: Delaney Perez; Order Number: [id number] Reading MD: Delaney Perez; Measurements; Intervals [place]; Rate: 104 P: 12; LA: 142 QRS: 10; QRSD: 84 T: 8; QT: 351; QTc: 462; Interpretive Statements; SINUS TACHYCARDIA; MODERATE T-WAVE ABNORMALITY, CONSIDER ANTEROLATERAL ISCHEMIA; LOW VOLTAGE LIMB; NSTTW ABNORMALITY; Electronically Signed On 11-26-2016 19:33:25 EST by Delaney Perez; Radiology Order: EKG-ADULT Test: EKG-ADULT REASON FOR EXAMINATION: tacycardia; Stationary ECG Study; [facility] ED; ; Test Date: 2016-11-26; Pat Name: [facility] Department:; Room: -; Gender: F Leather Roller: lyle; : 1940 Requested By: Delaney Perez; Order Number: [id number] Reading MD: Delaney Perez; Measurements; Intervals [place]; Rate: 176 P:; LA: 0 QRS: 27; QRSD: 98 T: 214; QT: 248; QTc: 425; Interpretive Statements; SUPRAVENTRICULAR TACHYCARDIA, POSSIBLE ATRIAL FLUTTER; ST DEVIATION AND MODERATE T-WAVE ABNORMALITY, CONSIDER ANTEROLATERAL ISCHEMIA; ST DEVIATION AND MODERATE T-WAVE ABNORMALITY, CONSIDER INFERIOR ISCHEMIA; PRIOR SINUS TACHYCARDIA/ MORE PRONOUNCED ST CHANGES CLINICAL CORRELATION; Electronically Signed On 11-26-2016 19:34:02 EST by Delaney Perez; Outcome: 14:55 Decision to Hospitalize by Provider. sd1 11/27 16:38 Discharge Assessment: Patient awake, alert and oriented x 3. No cognitive and/or pml functional deficits noted. Patient verbalized understanding of disposition instructions. patient administered narcotics - no. The following High Risk Discharge criteria are identified: None. Admitted to ICU accompanied by nurse, accompanied by tech, via stretcher, on monitor, with chart. Condition: good. Admission hand-off: Report called to [facility]. Property :Personal belongings accompany Pt. 16:40 CT Study completed. pml 16:41 Patient left the ED. pml Signatures: Dispatcher [employer] EDMS Delaney Perez MD MD sd1 Debbie Gautam, RN RN kmBonnie Jacobs RN Tiffany Tyson mcp RN Vandana MontielRN ADRIA hillman3 Kath Christine,RN ADRIA jo3 Ezra Santana, Reg Reg kf3 aJmes Jalloh, RACE CAR MECHANIC RACE CAR MECHANIC dd6 Kath Casillas RN RN jc4 Sylvia Musa RN RN pml Conner, Teresa, RN RN ttb Beck, Gabriela gjb Palmer, Jessica,RN RN duong6 Ailyn Grimm2 Ann-Marie Lopez,RN RN tm5 Corrections: (The following items were deleted from the chart) 16:40 16:38 No special radiology studies were completed pml pml Chart Complete MTDD
--- NOTE | 2016-12-01 14:02 | EDDOCDS ---
Physician Documentation [facility] Name: Anjum Klein Age: 76 yrs Sex: Female : 1940 Arrival Date: 11/26/2016 Time: 11:30 Bed Admit Hold Private MD: Mai Valenzuela L Disposition: 11/26/16 14:55 Hospitalization ordered by Santo Broderick for Inpatient Admission. Preliminary diagnosis is Sepsis, unspecified organism. - Bed requested for M ICU. - Status is Inpatient Admission. pml - Condition is Stable. - Problem is new. - Symptoms are unchanged. Historical: - Allergies: Demerol; Codeine Sulfate; - Home Meds: 1. Namenda XR 28 mg oral CSpX 1 cap once daily 2. refresh eye drops twice daily 3. Arthritis Pain Relief 650 mg twice daily 4. 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 No barriers to communication noted, The patient speaks fluent Monegasque, Speaks appropriately for age. - Family history: Not pertinent. - : The pt / caregiver states he / she is not on anticoagulants. Home medication list is obtained from family members. - Exposure Risk Screening:: None identified. Vital Signs: 11/26 11:33 BP 133 / 103; Pulse 124; Resp 18 S; Temp 98.8; Pulse Ox 95% on R/A; dd6 11:55 BP 97 / 61 (auto/); jc4 11:56 Temp 101.8(O); nb2 11:56 Pulse 122 MON; Pulse Ox 92% ; jc4 12:56 Pulse Ox 94% ; jc4 13:01 Weight 68.04 kg / 150 lbs (R); Height 5 ft. 2 in. (157.48 cm) (R); jc4 13:01 BP 89 / 55 (auto/); jc4 13:17 BP 91 / 56 (auto/); jc4 13:18 Pulse 110 MON; Pulse Ox 93% ; jc4 13:21 Resp 32 S; Pulse Ox 93% on R/A; jc4 13:40 Pulse 112 MON; Pulse Ox 92% ; jc4 13:47 BP 88 / 54 (auto/); jc4 14:17 BP 87 / 60 (auto/); Resp 36 S; jc4 14:19 Pulse 108 MON; Pulse Ox 94% ; jc4 14:39 Temp 99.3(A); jc4 14:47 BP 85 / 50 (auto/); jc4 14:48 Pulse 104 MON; Pulse Ox 95% ; jc4 15:17 BP 87 / 53 (auto/); jc4 15:17 Pulse 98 MON; Pulse Ox 95% ; jc4 15:24 Pulse 98 MON; Pulse Ox 96% ; jc4 15:25 BP 88 / 53 (auto/); jc4 15:57 Pulse 176 MON; Pulse Ox 95% ; jc4 15:58 BP 83 / 52 (auto/); jc4 16:02 BP 83 / 51 (auto/); jc4 16:02 Pulse 176 MON; Pulse Ox 96% ; jc4 16:17 BP 77 / 52 (auto/); jc4 16:17 Pulse 180 MON; Pulse Ox 96% ; jc4 16:32 BP 82 / 56 (auto/); jc4 16:32 Pulse 184 MON; Pulse Ox 95% ; jc4 16:47 BP 78 / 48 (auto/); jc4 16:47 Pulse 180 MON; Pulse Ox 96% ; jc4 17:00 Pulse 176 MON; Pulse Ox 95% ; jc4 17:02 BP 74 / 57 (auto/); jc4 17:17 BP 86 / 53 (auto/); jc4 17:24 Pulse 166 MON; Pulse Ox 96% ; jc4 17:32 BP 90 / 51 (auto/); jc4 17:32 Pulse 166 MON; Pulse Ox 95% ; jc4 17:47 BP 83 / 50 (auto/); jc4 17:47 Pulse 168 MON; Pulse Ox 95% ; jc4 18:02 BP 81 / 50 (auto/); jc4 18:02 Pulse 162 MON; Pulse Ox 95% ; jc4 18:17 BP 74 / 46 (auto/); jc4 18:17 Pulse 162 MON; Pulse Ox 94% ; jc4 18:32 BP 76 / 49 (auto/); jc4 18:33 Pulse 160 MON; Pulse Ox 94% ; jc4 18:33 Resp 32 S; jc4 18:47 BP 80 / 51 (auto/); jc4 18:49 Pulse 164 MON; Pulse Ox 96% ; jc4 19:17 BP 82 / 50; Pulse 158; Resp 22; Temp 97.8(A); Pulse Ox 96% on 2 lpm NC; Pain 0/10; tm5 20:19 BP 74 / 39; Pulse 92; Resp 20; Pulse Ox 96% on 2 lpm NC; tm5 21:08 BP 104 / 63; Pulse 67; Resp 18; Pulse Ox 96% on 2 lpm NC; tm5 11/27 16:38 BP 126 / 69; Pulse 75; Resp 18; Temp 98.2; Pulse Ox 94% on R/A; pml 11/26 13:01 Body Mass Index 27.44 (68.04 kg, 157.48 cm) jc4 MDM: 11/26 11:46 -Blood Culture (Adults Only), peripheral from different site, or from device/port/PICC sd1 etc. if present ordered. 11:46 Model Maker Plastic/Pulse Ox/q 30 min VS ordered. sd1 11:47 Amylase Ordered. EDMS 11:47 Basic Metabolic Profile Ordered. EDMS 11:47 CBC with Diff Ordered. EDMS 11:47 Lipase Ordered. EDMS 11:47 Liver Profile Ordered. EDMS 11:47 Lactic Acid (Murillo tube on ice) Ordered. EDMS 11:47 -Blood Culture Ordered. EDMS 11:48 Chest, 1 View Ordered. EDMS 11:48 UA Ordered. EDMS 11:48 Urine Culture Ordered. EDMS 12:13 Tellez ordered. jc4 12:24 NS 0.9% 1000 ml IV at 150 mL/hr continuous ordered. sd1 12:25 Cefepime 2 grams IVPB at 100 mL/hr once over 30 mins; dilute in 50mL of NS or D5W sd1 ordered. 12:25 DIFFERENTIAL NO CHARGE Ordered. EDMS 12:31 Acetaminophen Suppository 650 mg VA once ordered. jc4 12:43 -Blood Culture (Adults Only), peripheral from different site, or from device/port/PICC lbd etc. if present complete. 12:46 BLOOD CULTURES Ordered. EDMS 13:04 NS 0.9% (Sepsis- hypotension or lactate >4mmol/L, 30ml/kg) 30 ml/kg IV at bolus once; sd1 Give in 500mL aliquots, assess for rales after each,2100cc ordered. 13:09 BED REQUEST+ADM ordered. EDMS 13:28 Amylase Reviewed. sd1 13:28 Basic Metabolic Profile Reviewed. sd1 13:28 CBC with Diff Reviewed. sd1 13:28 Lipase Reviewed. sd1 13:28 Liver Profile Reviewed. sd1 13:28 UA Reviewed. sd1 13:28 Lactic Acid (Murillo tube on ice) Reviewed. sd1 13:28 PLATELET ESTIMATE Reviewed. sd1 13:30 CT ABD & PELVIS: No Contrast Ordered. EDMS 13:30 CT Chest Without Contrast Ordered. EDMS 14:06 ECG WITH READING ER PHYS+CARDIAG ordered. EDMS 15:14 vancomycin 125 mg PO once ordered. sd1 15:35 Financial registration complete. [facility] 15:43 [facility] Payment Agreement was scanned into [employer] and attached to record. gjb 15:47 ECG WITH READING ER PHYS+CARDIAG ordered. EDMS 16:02 Digoxin 0.5 mg IVP once ordered. sd1 18:15 GASTROINTESTINAL (GI) PANEL Ordered. EDMS 19:01 Admission / Observation Status ordered. EDMS 19:01 TROPONIN Ordered. EDMS 19:01 LACTIC ACID LEVEL, LACTATE Ordered. EDMS 19:02 COMPLETE BLOOD COUNT Ordered. EDMS 19:02 BASIC METABOLIC PROFILE Ordered. EDMS 19:33 TROPONIN Ordered. EDMS 19:33 TROPONIN Ordered. EDMS 19:33 BASIC METABOLIC PROFILE Ordered. EDMS 19:33 COMPLETE BLOOD COUNT Ordered. EDMS 01 08:56 PUREED DIET ordered. EDMS 11/28 19:24 Trend VS was scanned into [employer] and attached to record. kf3 Administered Medications: 11/26 12:50 Drug: Acetaminophen 650 mg [acetaminophen 650 mg rectal suppository (1 supp)] Route: VA;jc4 14:39 Follow up: Temp 99.3 Axillary jc4 12:57 Drug: NS 0.9% 1000 ml [sodium chloride 0.9 % intravenous solution] Route: IV; Rate: 150 jc4 mL/hr; Site: left antecubital; 13:18 Drug: Cefepime 2 grams [cefepime 2 gram solution for injection] Route: IVPB; Rate: 100 jc4 mL/hr; Infused Over: 30 mins; Site: left antecubital; 13:55 Follow up: IV Status: Completed infusion kr3 13:18 Drug: NS 0.9% (Sepsis- hypotension or lactate >4mmol/L, 30ml/kg) 2041.2 ml [sodium jc4 chloride 0.9 % intravenous solution] Route: IV; Rate: bolus; Site: left antecubital; 16:23 Drug: Digoxin 0.5 mg [digoxin 250 mcg/mL injection solution (2 mL)] Route: IVP; Site: jc4 left antecubital; 19:10 Follow up: Response: No Adverse Reaction tm5 16:31 Drug: vancomycin 125 mg Route: PO; jc4 19:10 Follow up: Response: No Adverse Reaction tm5 Signatures: Dispatcher [employer] EDMS Delaney Perez MD MD sd1 Cyndi Claudio, Card Feeder Unit lbd Kath Christine RN RN jo3 Ezra Santana, Reg Reg kf3 Kath Casillas RN RN jc4 Sylvia Musa RN RN pml Beck, Gabriela gjb Robie, Kathleen RN kr3 Ann-Marie Lopez RN tm5 The chart was reviewed and I authenticate all verbal orders and agree with the evaluation and treatment provided.Corrections: (The following items were deleted from the chart) 18:15 13:08 CLOSTRIDIUM DIFFICILE PCR+TOM ordered. EDMS EDMS 18:15 18:13 GASTROINTESTINAL (GI) PANEL ordered. EDMS EDMS 11/27 08:55 11/26 11:48 NOTHING BY MOUTH+DIET ordered. EDMS EDMS 11/27 08:55 11/26 19:01 NPO DIET ordered. EDMS EDMS Attachments: 15:43 [facility] Payment Agreement gj Chart Complete MTDD
--- NOTE | 2016-12-01 14:02 | EDDOCDS ---
Physician Documentation [facility] Name: Anjum Klein Age: 76 yrs Sex: Female : 1940 Arrival Date: 11/26/2016 Time: 11:30 Bed Admit Hold Private MD: Mai Valenzuela L Disposition: 11/26/16 14:55 Hospitalization ordered by Santo Broderick for Inpatient Admission. Preliminary diagnosis is Sepsis, unspecified organism. - Bed requested for M ICU. - Status is Inpatient Admission. pml - Condition is Stable. - Problem is new. - Symptoms are unchanged. Historical: - Allergies: Demerol; Codeine Sulfate; - Home Meds: 1. Namenda XR 28 mg oral CSpX 1 cap once daily 2. refresh eye drops twice daily 3. Arthritis Pain Relief 650 mg twice daily 4. 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 No barriers to communication noted, The patient speaks fluent [place], Speaks appropriately for age. - Family history: Not pertinent. - : The pt / caregiver states he / she is not on anticoagulants. Home medication list is obtained from family members. - Exposure Risk Screening:: None identified. Vital Signs: 11/26 11:33 BP 133 / 103; Pulse 124; Resp 18 S; Temp 98.8; Pulse Ox 95% on R/A; dd6 11:55 BP 97 / 61 (auto/); jc4 11:56 Temp 101.8(O); nb2 11:56 Pulse 122 MON; Pulse Ox 92% ; jc4 12:56 Pulse Ox 94% ; jc4 13:01 Weight 68.04 kg / 150 lbs (R); Height 5 ft. 2 in. (157.48 cm) (R); jc4 13:01 BP 89 / 55 (auto/); jc4 13:17 BP 91 / 56 (auto/); jc4 13:18 Pulse 110 MON; Pulse Ox 93% ; jc4 13:21 Resp 32 S; Pulse Ox 93% on R/A; jc4 13:40 Pulse 112 MON; Pulse Ox 92% ; jc4 13:47 BP 88 / 54 (auto/); jc4 14:17 BP 87 / 60 (auto/); Resp 36 S; jc4 14:19 Pulse 108 MON; Pulse Ox 94% ; jc4 14:39 Temp 99.3(A); jc4 14:47 BP 85 / 50 (auto/); jc4 14:48 Pulse 104 MON; Pulse Ox 95% ; jc4 15:17 BP 87 / 53 (auto/); jc4 15:17 Pulse 98 MON; Pulse Ox 95% ; jc4 15:24 Pulse 98 MON; Pulse Ox 96% ; jc4 15:25 BP 88 / 53 (auto/); jc4 15:57 Pulse 176 MON; Pulse Ox 95% ; jc4 15:58 BP 83 / 52 (auto/); jc4 16:02 BP 83 / 51 (auto/); jc4 16:02 Pulse 176 MON; Pulse Ox 96% ; jc4 16:17 BP 77 / 52 (auto/); jc4 16:17 Pulse 180 MON; Pulse Ox 96% ; jc4 16:32 BP 82 / 56 (auto/); jc4 16:32 Pulse 184 MON; Pulse Ox 95% ; jc4 16:47 BP 78 / 48 (auto/); jc4 16:47 Pulse 180 MON; Pulse Ox 96% ; jc4 17:00 Pulse 176 MON; Pulse Ox 95% ; jc4 17:02 BP 74 / 57 (auto/); jc4 17:17 BP 86 / 53 (auto/); jc4 17:24 Pulse 166 MON; Pulse Ox 96% ; jc4 17:32 BP 90 / 51 (auto/); jc4 17:32 Pulse 166 MON; Pulse Ox 95% ; jc4 17:47 BP 83 / 50 (auto/); jc4 17:47 Pulse 168 MON; Pulse Ox 95% ; jc4 18:02 BP 81 / 50 (auto/); jc4 18:02 Pulse 162 MON; Pulse Ox 95% ; jc4 18:17 BP 74 / 46 (auto/); jc4 18:17 Pulse 162 MON; Pulse Ox 94% ; jc4 18:32 BP 76 / 49 (auto/); jc4 18:33 Pulse 160 MON; Pulse Ox 94% ; jc4 18:33 Resp 32 S; jc4 18:47 BP 80 / 51 (auto/); jc4 18:49 Pulse 164 MON; Pulse Ox 96% ; jc4 19:17 BP 82 / 50; Pulse 158; Resp 22; Temp 97.8(A); Pulse Ox 96% on 2 lpm NC; Pain 0/10; tm5 20:19 BP 74 / 39; Pulse 92; Resp 20; Pulse Ox 96% on 2 lpm NC; tm5 21:08 BP 104 / 63; Pulse 67; Resp 18; Pulse Ox 96% on 2 lpm NC; tm5 11/27 16:38 BP 126 / 69; Pulse 75; Resp 18; Temp 98.2; Pulse Ox 94% on R/A; pml 11/26 13:01 Body Mass Index 27.44 (68.04 kg, 157.48 cm) jc4 MDM: 11/26 11:46 -Blood Culture (Adults Only), peripheral from different site, or from device/port/PICC sd1 etc. if present ordered. 11:46 Bounty Hunter/Pulse Ox/q 30 min VS ordered. sd1 11:47 Amylase Ordered. EDMS 11:47 Basic Metabolic Profile Ordered. EDMS 11:47 CBC with Diff Ordered. EDMS 11:47 Lipase Ordered. EDMS 11:47 Liver Profile Ordered. EDMS 11:47 Lactic Acid (Murillo tube on ice) Ordered. EDMS 11:47 -Blood Culture Ordered. EDMS 11:48 Chest, 1 View Ordered. EDMS 11:48 UA Ordered. EDMS 11:48 Urine Culture Ordered. EDMS 12:13 Tellez ordered. jc4 12:24 NS 0.9% 1000 ml IV at 150 mL/hr continuous ordered. sd1 12:25 Cefepime 2 grams IVPB at 100 mL/hr once over 30 mins; dilute in 50mL of NS or D5W sd1 ordered. 12:25 DIFFERENTIAL NO CHARGE Ordered. EDMS 12:31 Acetaminophen Suppository 650 mg NE once ordered. jc4 12:43 -Blood Culture (Adults Only), peripheral from different site, or from device/port/PICC lbd etc. if present complete. 12:46 BLOOD CULTURES Ordered. EDMS 13:04 NS 0.9% (Sepsis- hypotension or lactate >4mmol/L, 30ml/kg) 30 ml/kg IV at bolus once; sd1 Give in 500mL aliquots, assess for rales after each,2100cc ordered. 13:09 BED REQUEST+ADM ordered. EDMS 13:28 Amylase Reviewed. sd1 13:28 Basic Metabolic Profile Reviewed. sd1 13:28 CBC with Diff Reviewed. sd1 13:28 Lipase Reviewed. sd1 13:28 Liver Profile Reviewed. sd1 13:28 UA Reviewed. sd1 13:28 Lactic Acid (Murillo tube on ice) Reviewed. sd1 13:28 PLATELET ESTIMATE Reviewed. sd1 13:30 CT ABD & PELVIS: No Contrast Ordered. EDMS 13:30 CT Chest Without Contrast Ordered. EDMS 14:06 ECG WITH READING ER PHYS+CARDIAG ordered. EDMS 15:14 vancomycin 125 mg PO once ordered. sd1 15:35 Financial registration complete. [facility] 15:43 [facility] Payment Agreement was scanned into 2C2P and attached to record. gjb 15:47 ECG WITH READING ER PHYS+CARDIAG ordered. EDMS 16:02 Digoxin 0.5 mg IVP once ordered. sd1 18:15 GASTROINTESTINAL (GI) PANEL Ordered. EDMS 19:01 Admission / Observation Status ordered. EDMS 19:01 TROPONIN Ordered. EDMS 19:01 LACTIC ACID LEVEL, LACTATE Ordered. EDMS 19:02 COMPLETE BLOOD COUNT Ordered. EDMS 19:02 BASIC METABOLIC PROFILE Ordered. EDMS 19:33 TROPONIN Ordered. EDMS 19:33 TROPONIN Ordered. EDMS 19:33 BASIC METABOLIC PROFILE Ordered. EDMS 19:33 COMPLETE BLOOD COUNT Ordered. EDMS 01 08:56 PUREED DIET ordered. EDMS 11/28 19:24 Trend VS was scanned into 2C2P and attached to record. kf3 Administered Medications: 11/26 12:50 Drug: Acetaminophen 650 mg [acetaminophen 650 mg rectal suppository (1 supp)] Route: NE;jc4 14:39 Follow up: Temp 99.3 Axillary jc4 12:57 Drug: NS 0.9% 1000 ml [sodium chloride 0.9 % intravenous solution] Route: IV; Rate: 150 jc4 mL/hr; Site: left antecubital; 13:18 Drug: Cefepime 2 grams [cefepime 2 gram solution for injection] Route: IVPB; Rate: 100 jc4 mL/hr; Infused Over: 30 mins; Site: left antecubital; 13:55 Follow up: IV Status: Completed infusion kr3 13:18 Drug: NS 0.9% (Sepsis- hypotension or lactate >4mmol/L, 30ml/kg) 2041.2 ml [sodium jc4 chloride 0.9 % intravenous solution] Route: IV; Rate: bolus; Site: left antecubital; 16:23 Drug: Digoxin 0.5 mg [digoxin 250 mcg/mL injection solution (2 mL)] Route: IVP; Site: jc4 left antecubital; 19:10 Follow up: Response: No Adverse Reaction tm5 16:31 Drug: vancomycin 125 mg Route: PO; jc4 19:10 Follow up: Response: No Adverse Reaction tm5 Signatures: Dispatcher [employer] EDMS Delaney Perez MD MD sd1 Cyndi Claudio, Shelter Supervisor Unit lbd Kath Christine RN RN jo3 Ezra Santana, Reg Reg kf3 Kath Casillas RN RN jc4 Sylvia Musa RN RN pml Beck, Gabriela gjb Robie, Kathleen RN kr3 Ann-Marie Lopez RN tm5 The chart was reviewed and I authenticate all verbal orders and agree with the evaluation and treatment provided.Corrections: (The following items were deleted from the chart) 18:15 13:08 CLOSTRIDIUM DIFFICILE PCR+TOM ordered. EDMS EDMS 18:15 18:13 GASTROINTESTINAL (GI) PANEL ordered. EDMS EDMS 11/27 08:55 11/26 11:48 NOTHING BY MOUTH+DIET ordered. EDMS EDMS 11/27 08:55 11/26 19:01 NPO DIET ordered. EDMS EDMS Attachments: 15:43 [facility] Payment Agreement gj Chart Complete MTDD
--- NOTE | 2016-12-01 14:02 | EDDOCDS ---
Nurse's Notes [facility] Name: Anjum Klein Age: 76 yrs Sex: Female : 1940 Arrival Date: 11/26/2016 Time: 11:30 Bed Admit Hold Private MD: Mai Valenzuela L Diagnosis: Sepsis, unspecified organism Presentation: 11/26 11:38 Presenting complaint: Daughter states that pt had D&C and LEEP procedure yesterday for jo3 abnormal vaginal discharge and dysplasia of cervix. Fever of 102 today. Pt has not returned to baseline responsiveness since the surgery. Sent home by Dr Valenzuela yesterday under the assumption that pt would return to baseline. Adult Sepsis Screening: Patient has new or worsening altered mentation (1 point). Patient's respiratory rate is less than 22. Systolic blood pressure is greater than 100. Patient has a qSOFA score of 0- Negative Sepsis Screen. Suicide/Homicide risk assessment- the patient denies having any suicidal and/or homicidal ideations and does not present with any other emotional, behavioral or mental health complaints. Status: Patient is not a director of medical staff services or dependent. Transition of care: patient was not received from another setting of care. 11:38 Acuity: CRIS Level 3 jo3 11:38 Method Of Arrival: Walkin/Carried/Asstd jo3 Triage Assessment: 11:44 General: Appears in no apparent distress, uncomfortable, Behavior is quiet. jo3 Neurological: Level of Consciousness is awake. Derm: Skin is pink, warm & dry. Historical: - Allergies: Demerol; Codeine Sulfate; - Home Meds: 1. Namenda XR 28 mg oral CSpX 1 cap once daily 2. refresh eye drops twice daily 3. Arthritis Pain Relief 650 mg twice daily 4. 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 No barriers to communication noted, The patient speaks fluent Danish, Speaks appropriately for age. - Family history: Not pertinent. - : The pt / caregiver states he / she is not on anticoagulants. Home medication list is obtained from family members. - Exposure Risk Screening:: None identified. Screenin:41 Screening information is obtained from family members. Fall risk: At risk due to jc4 apparent cognitive impairment, The following interventions are performed due to a positive Fall Risk Screen: Fall Risk is added to Special Handling on the patient Summary Screen. A Fall Risk Bracelet was applied to the patient. Side Rails are placed in the up position. A Call Worrell is given with instruction to call for help when getting out of bed. Assistance ADL's: Requires assistance with meal preparation, this assistance is provided by family members, bathing, assistance is provided by family members, dressing, assistance is provided by family members, toileting, assistance is provided by family members, ambulation, assistance is provided by family members, housework, assistance is provided by family members, medication administration, assistance is provided by family members. Abuse/DV Screen: The patient / caregiver reports he/she is: pt cannot be assessed for living situation at this time. Nutritional screening: diarrhea for the past few days, has been vomiting since procedure. Advance Directives: There is an active DNR order and the pt has a copy here at this time. home support is adequate. Assessment: 13:19 General: Appears ill, Behavior is eyes open, smiling. No verbal response which daughter trevor states is baseline mental status. Pain: Unable to use pain scale. Neurological: Level of Consciousness is awake. EENT: Oral mucosa is dry. Cardiovascular: Rhythm is sinus tachycardia No ectopy. Respiratory: Airway is patent Respiratory effort is unlabored, Respiratory pattern is regular, tachypnea Breath sounds are clear bilaterally. GI: Abdomen is non- distended Bowel sounds present X 4 quads. Abd is soft and non tender X 4 quads. : Urine is light tea colored. Tellez catheter in place. Derm: Skin is dry, Skin is flushed, Skin temperature is hot. 13:30 General: Bruising and swelling noted to left hand, daughter states that pt had IV jc4 placed in hand yesterday. 14:39 General: Pt with eyes closed on stretcher. Color pink, skin warm and dry. Pt opens jc4 eyes, non-verbal. Respirations 36/minute, breath sounds are clear. SaO2-91%, patient placed on 2 liters nasal canula. Daughter at bedside, supportive and loving. . 15:38 General: Pt lying on stretcher. No distress noted. Color pink, skin warm and dry. jc4 Respirations easy, resp 32/minute. Lungs clear. IVF bolus continuing. Daughter inquiring regarding pathology results. Dr. Perez consulted. 15:45 General: Pt lying on stretcher with eyes closed. Respirations 36/minute, SaO2-94% on 2 jc4 liters nasal canula. Heart rate 180 bpm, narrow complex tachycardia. Dr. Perez notified. 16:02 General: Swabs given for oral care. Daughter assisting in care, who is loving and jc4 supportive. 16:31 General: Dr. Valenzuela in to examine patient, and speak with family. jc4 16:33 General: Pt with eyes open. Non-verbal. Color pink, skin warm and dry. Respirations jc4 32/minute. tailor's aide - narrow complex tachycardia, rate 184 bpm. Pt maintained on 2 liters nasal canula. IVF infusing well, site clear. 16:38 General: Lungs clear. Respirations 32/minute, SaO2-95% on 2 liters nasal canula. IVF jc4 bolus continued, site clear. 17:54 General: Daughter, son and [id number] at the bedside. Pt's MOLST form reviewed jc4 with them per their request. Pt with eyes closed on stretcher. Color pink, skin warm and dry. Respirations 32/minute. tailor's aide - narrow complex tachycardia, rate 163 bpm. IVF infusing well, site clear. Pt has been placed on bedpan as daughter felt she looked uncomfortable, but patient did not have BM. 18:24 General: Dr. Zapata in to examine patient and speak with family. jc4 19:17 General: Appears ill, Behavior is non-verbal pt which per daughter is pt's baseline, pt tm5 smiles at this RN while providing care . Pain: Unable to use pain scale. pt is non-verbal. Neurological: Level of Consciousness is awake. Cardiovascular: Rhythm is sinus tachycardia No ectopy. Respiratory: Airway is patent Respiratory effort is even, unlabored, Respiratory pattern is regular, Breath sounds are clear bilaterally. GI: Abdomen is non- distended Bowel sounds present X 4 quads. Abd is soft and non tender X 4 quads. Derm: Skin is pink, warm & dry. normal. 19:31 General: GRANTS ADMINISTRATOR AT BEDSIDE, ADMISSION LABS DRAWN . tm5 20:19 Reassessment: Patient appears in no apparent distress at this time. Patient states tm5 symptoms have improved. pt was repositioned to her left side by family & this RN, pt appears to be in no distress, Heart rate has decreased to Sinus rhythm after repositioning pt . Cardiovascular: Rhythm is sinus rhythm No ectopy. 21:08 Reassessment: Patient appears in no apparent distress at this time. pt is more alert at tm5 this time, daughter is doing mouth care on pt right now, no s/s of any distress. Cardiovascular: Rhythm is sinus rhythm No ectopy. 22:30 General: pt placed in hospital bed & placed in Rm 21 for Hold admission . tm5 11/27 07:28 General: Appears uncomfortable, Behavior is appropriate for age, cooperative. pml Neurological: Level of Consciousness is awake, alert, obeys commands. Cardiovascular: Capillary refill < 3 seconds Rhythm is sinus rhythm No ectopy. Respiratory: Airway is patent Respiratory effort is even, unlabored. GI: Abdomen is non- distended. Derm: Skin is pink, warm & dry. 09:34 General: pt awake and alert, obeying commands, tolerating sips of pudding thick pml cranberry juice without difficulty. answers questions with one word answers appropriately. family at bedside. 12:00 General: Appears in no apparent distress, comfortable, Behavior is appropriate for age, pml cooperative. Pain: Denies pain. Neurological: Level of Consciousness is awake, alert. Cardiovascular: Capillary refill < 3 seconds. Cardiovascular: Rhythm is sinus rhythm No ectopy. Respiratory: Airway is patent Respiratory effort is even, unlabored. Derm: Skin is pink, warm & dry. 16:38 General: Appears in no apparent distress, Behavior is appropriate for age, cooperative. pml Pain: Denies pain. Neurological: Level of Consciousness is awake, alert, obeys commands. Cardiovascular: Capillary refill < 3 seconds Rhythm is sinus rhythm No ectopy. Respiratory: Airway is patent Respiratory effort is even, unlabored. GI: Abdomen is non- distended. Derm: Skin is pink, warm & dry. Vital Signs: 11/26 11:33 BP 133 / 103; Pulse 124; Resp 18 S; Temp 98.8; Pulse Ox 95% on R/A; dd6 11:55 BP 97 / 61 (auto/); jc4 11:56 Temp 101.8(O); nb2 11:56 Pulse 122 MON; Pulse Ox 92% ; jc4 12:56 Pulse Ox 94% ; jc4 13:01 Weight 68.04 kg (R); Height 5 ft. 2 in. (157.48 cm) (R); jc4 13:01 BP 89 / 55 (auto/); jc4 13:17 BP 91 / 56 (auto/); jc4 13:18 Pulse 110 MON; Pulse Ox 93% ; jc4 13:21 Resp 32 S; Pulse Ox 93% on R/A; jc4 13:40 Pulse 112 MON; Pulse Ox 92% ; jc4 13:47 BP 88 / 54 (auto/); jc4 14:17 BP 87 / 60 (auto/); Resp 36 S; jc4 14:19 Pulse 108 MON; Pulse Ox 94% ; jc4 14:39 Temp 99.3(A); jc4 14:47 BP 85 / 50 (auto/); jc4 14:48 Pulse 104 MON; Pulse Ox 95% ; jc4 15:17 BP 87 / 53 (auto/); jc4 15:17 Pulse 98 MON; Pulse Ox 95% ; jc4 15:24 Pulse 98 MON; Pulse Ox 96% ; jc4 15:25 BP 88 / 53 (auto/); jc4 15:57 Pulse 176 MON; Pulse Ox 95% ; jc4 15:58 BP 83 / 52 (auto/); jc4 16:02 BP 83 / 51 (auto/); jc4 16:02 Pulse 176 MON; Pulse Ox 96% ; jc4 16:17 BP 77 / 52 (auto/); jc4 16:17 Pulse 180 MON; Pulse Ox 96% ; jc4 16:32 BP 82 / 56 (auto/); jc4 16:32 Pulse 184 MON; Pulse Ox 95% ; jc4 16:47 BP 78 / 48 (auto/); jc4 16:47 Pulse 180 MON; Pulse Ox 96% ; jc4 17:00 Pulse 176 MON; Pulse Ox 95% ; jc4 17:02 BP 74 / 57 (auto/); jc4 17:17 BP 86 / 53 (auto/); jc4 17:24 Pulse 166 MON; Pulse Ox 96% ; jc4 17:32 BP 90 / 51 (auto/); jc4 17:32 Pulse 166 MON; Pulse Ox 95% ; jc4 17:47 BP 83 / 50 (auto/); jc4 17:47 Pulse 168 MON; Pulse Ox 95% ; jc4 18:02 BP 81 / 50 (auto/); jc4 18:02 Pulse 162 MON; Pulse Ox 95% ; jc4 18:17 BP 74 / 46 (auto/); jc4 18:17 Pulse 162 MON; Pulse Ox 94% ; jc4 18:32 BP 76 / 49 (auto/); jc4 18:33 Pulse 160 MON; Pulse Ox 94% ; jc4 18:33 Resp 32 S; jc4 18:47 BP 80 / 51 (auto/); jc4 18:49 Pulse 164 MON; Pulse Ox 96% ; jc4 19:17 BP 82 / 50; Pulse 158; Resp 22; Temp 97.8(A); Pulse Ox 96% on 2 lpm NC; Pain 0/10; tm5 20:19 BP 74 / 39; Pulse 92; Resp 20; Pulse Ox 96% on 2 lpm NC; tm5 21:08 BP 104 / 63; Pulse 67; Resp 18; Pulse Ox 96% on 2 lpm NC; tm5 11/27 16:38 BP 126 / 69; Pulse 75; Resp 18; Temp 98.2; Pulse Ox 94% on R/A; pml 11/26 13:01 Body Mass Index 27.44 (68.04 kg, 157.48 cm) [facility] Vitals: 11/26 11:33 Log In Time: November 26, 2016 at 11:31. dd6 ED Course: 11:32 Patient visited by James Jalloh PCA. dd6 11:32 Patient moved to Waiting dd6 11:33 Mai Valenzuela is Private Physician. dd6 11:34 Patient moved to Pre RCE dd6 11:42 Triage Initiated jo3 11:43 Kath Casillas RN is Primary Nurse. ttb 11:43 Jeniffer Barraza RN is Primary Nurse. ttb 11:43 Patient moved to 17 ttb 11:45 Patient visited by Kath Christine RN. jo3 11:56 Patient visited by Ailyn Grimm. nb2 11:56 Placed in gown. Bed in low position. Call light in reach. Side rails up X2. Cardiac nb2 monitor on. Pulse ox on. NIBP on. 12:03 Delaney Perez MD is Attending Physician. sd1 12:05 Patient visited by Delaney Perez MD. sd1 12:55 Inserted saline lock: 20 gauge in left antecubital area The patient tolerated the jc4 procedure well. 12:57 DIFFERENTIAL NO CHARGE Sent. jc4 12:58 Urine Culture Sent. jc4 12:58 UA Sent. jc4 12:58 Tellez cath inserted 16 Fr. Balloon inflated. To gravity drainage. Urine specimen jc4 collected. Patient tolerated well. 13:19 The patient / caregiver is instructed regarding the plan of care and ED course. jc4 13:21 Patient visited by Kath Casillas, ADRIA. jc4 14:27 Patient visited by Kath Casillas RN. jc4 14:36 Chest, 1 View Returned. EDMS 14:42 EKG done. (by ED staff). Reviewed by Delaney Perez MD. nb2 14:43 Patient visited by Ailyn Grimm. nb2 14:55 Santo Broderick is Hospitalizing Provider. sd1 15:25 CT Chest Without Contrast Returned. EDMS 15:25 CT ABD & PELVIS: No Contrast Returned. EDMS 15:43 [facility] Payment Agreement was scanned into [employer] and attached to record. gjb 15:53 EKG done. (by ED staff). Reviewed by Delaney Perez MD. nb2 16:03 Patient visited by Ailyn Grimm. nb2 19:07 Patient moved to Admit Hold daq 19:11 Patient visited by Ann-Marie Lopez,ADRIA. tm5 19:11 Report received from Mariangel Dixon RN, assumed care of pt at this time. tm5 19:12 Awaiting bed assignment. tm5 19:17 Patient visited by Ann-Marie Lopez,ADRIA. tm5 19:31 Patient visited by Ann-Marie Lopez,ADRIA. tm5 19:43 EKG-ADULT Returned. EDMS 19:43 EKG-ADULT Returned. EDMS 20:24 Patient visited by Ann-Marie Lopez RN. tm5 20:24 family notified that pt will be a holding pt in the ER due to no admission beds in the [address], family is understanding of this . 21:48 Primary Nurse role handed off by Jeniffer Barraza,ADRIA jp6 22:29 Patient visited by Ann-Marie Lopez RN. tm5 22:30 Patient moved to 21 [facility] 22:45 Primary Nurse role handed off by Kath Casillas RN [facility] 11/27 03:47 Patient moved to Admit Hold kmg1 07:28 Patient visited by Sylvia Musa,ADRIA. pml 09:35 Patient visited by Sylvia Musa,ADRIA. pml 12:00 Patient visited by Sylvia Musa,ADRIA. pml 16:38 No procedures done that require assistance. pml 11/28 19:24 Trend VS was scanned into [employer] and attached to record. kf3 Administered Medications: 11/26 12:50 Drug: Acetaminophen 650 mg [acetaminophen 650 mg rectal suppository (1 supp)] Route: [place];jc4 14:39 Follow up: Temp 99.3 Axillary jc4 12:57 Drug: NS 0.9% 1000 ml [sodium chloride 0.9 % intravenous solution] Route: IV; Rate: 150 jc4 mL/hr; Site: left antecubital; 13:18 Drug: Cefepime 2 grams [cefepime 2 gram solution for injection] Route: IVPB; Rate: 100 jc4 mL/hr; Infused Over: 30 mins; Site: left antecubital; 13:55 Follow up: IV Status: Completed infusion kr3 13:18 Drug: NS 0.9% (Sepsis- hypotension or lactate >4mmol/L, 30ml/kg) 2041.2 ml [sodium jc4 chloride 0.9 % intravenous solution] Route: IV; Rate: bolus; Site: left antecubital; 16:23 Drug: Digoxin 0.5 mg [digoxin 250 mcg/mL injection solution (2 mL)] Route: IVP; Site: jc4 left antecubital; 19:10 Follow up: Response: No Adverse Reaction tm5 16:31 Drug: vancomycin 125 mg Route: PO; jc4 19:10 Follow up: Response: No Adverse Reaction tm5 Attachments: 11/28 19:24 Trend VS kf3 Intake: 11/26 14:30 IV: 500.00ml (NS); Total: 500.00ml. jc4 15:38 IV: 500.00ml (NS); Total: 1000.00ml. jc4 16:39 IV: 500.00ml (NS); Total: 1500.00ml. jc4 18:23 IV: 500.00ml (NS); Total: 2000.00ml. jc4 Order Results: Lab Order: Amylase; SPEC'M 11/26/16 12:07 Test: AMYLASE; Value: 16; Range: 25-115; Abnormal: Below low normal; Units: U/L; Status: F Lab Order: Basic Metabolic Profile; SPEC'M 11/26/16 12:07 Test: GLUCOSE, FASTING; Value: 117; Range: 83-110; Abnormal: Above high normal; Units: MG/DL; Status: F Test: BLOOD UREA NITROGEN; Value: 28; Range: 7-18; Abnormal: Above high normal; Units: MG/DL; Status: F Test: CREATININE FOR GFR; Value: 1.49; Range: 0.55-1.02; Abnormal: Above high normal; Units: MG/DL; Status: F Test: GLOMERULAR FILTRATION RATE; Value: 36.2; Range: >39; Abnormal: Below low normal; Status: F Test: SODIUM LEVEL; Value: 141; Range: 136-145; Units: MEQ/L; Status: F Test: POTASSIUM SERUM; Value: 3.3; Range: 3.5-5.1; Abnormal: Below low normal; Units: MEQ/L; Status: F Test: CHLORIDE LEVEL; Value: 108; Range: 98-107; Abnormal: Above high normal; Units: MEQ/L; Status: F Test: CARBON DIOXIDE LEVEL; Value: 23; Range: 21-32; Units: MEQ/L; Status: F Test: ANION GAP; Value: 10; Range: 8-16; Units: MEQ/L; Status: F Test: CALCIUM LEVEL; Value: 8.5; Range: 8.8-10.2; Abnormal: Below low normal; Units: MG/DL; Status: F Test Note: ; Units are mL/min/1.73 m2 Chronic Kidney Disease Staging per NKF: Stage I & II GFR >=60 Normal to Mildly Decreased Stage III GFR 30-59 Moderately Decreased Stage IV GFR 15-29 Severely Decreased Stage V GFR <15 Very Little GFR Left ESRD GFR <15 on HARDWARE ENGINEER Lab Order: CBC with Diff; SPEC'M 11/26/16 12:07 Test: WHITE BLOOD COUNT; Value: 28.5; Range: 4.0-10.0; Abnormal: Above high normal; Units: K/mm3; Status: F Test: RED BLOOD COUNT; Value: 3.77; Range: 4.00-5.40; Abnormal: Below low normal; Units: M/mm3; Status: F Test: HEMOGLOBIN; Value: 11.6; Range: 12.0-16.0; Abnormal: Below low normal; Units: g/dl; Status: F Test: HEMATOCRIT; Value: 34.1; Range: 36.0-47.0; Abnormal: Below low normal; Units: %; Status: F Test: MEAN CORPUSCULAR VOLUME; Value: 90.5; Range: 80.0-96.0; Units: fl; Status: F Test: MEAN CORPUSCULAR HEMOGLOBIN; Value: 30.8; Range: 27.0-33.0; Units: pg; Status: F Test: MEAN CORPUSCULAR HGB CONC; Value: 34.0; Range: 32.0-36.5; Units: g/dl; Status: F Test: RED CELL DISTRIBUTION WIDTH; Value: 13.0; Range: 11.5-14.5; Units: %; Status: F Test: PLATELET COUNT, AUTOMATED; Value: 139; Range: 150-450; Abnormal: Below low normal; Units: k/mm3; Status: F Test: NEUTROPHILS; Value: 84; Range: 35-75; Abnormal: Above high normal; Units: %; Status: F Test: BANDS; Value: 10; Range: < 11; Units: %; Status: F Test: MONOCYTES; Value: 3; Range: 0-8; Units: %; Status: F Test: ATYPICAL LYMPH; Value: 3; Range: 0-5; Units: %; Status: F Test: RBC MORPHOLOGY; Value: NORMAL; Status: F Lab Order: Lipase; SPEC'M 11/26/16 12:07 Test: LIPASE; Value: 42; Range: 73-393; Abnormal: Below low normal; Units: U/L; Status: F Lab Order: Liver Profile; SPEC'M 11/26/16 12:07 Test: AST/SGOT; Value: 83; Range: 15-37; Abnormal: Above high normal; Units: U/L; Status: F Test: ALT/SGPT; Value: 50; Range: 12-78; Units: U/L; Status: F Test: ALKALINE PHOSPHATASE; Value: 73; Range: 45-117; Units: U/L; Status: F Test: BILIRUBIN,TOTAL; Value: 0.5; Range: 0.2-1.0; Units: MG/DL; Status: F Test: BILIRUBIN,DIRECT; Value: 0.1; Range: 0.0-0.2; Units: MG/DL; Status: F Test: TOTAL PROTEIN; Value: 6.4; Range: 6.4-8.2; Units: GM/DL; Status: F Test: ALBUMIN; Value: 2.9; Range: 3.2-5.2; Abnormal: Below low normal; Units: GM/DL; Status: F Test: ALBUMIN/GLOBULIN RATIO; Value: 0.83; Range: 1.00-1.93; Abnormal: Below low normal; Status: F Lab Order: Lactic Acid (Murillo tube on ice); SPEC'M 11/26/16 12:07 Test: LACTIC ACID LEVEL, LACTATE; Value: 2.0; Range: 0.4-2.0; Units: MMOL/L; Status: F Lab Order: -Blood Culture; SPEC'M 11/26/16 12:06 Test: BLOOD CULTURE; Value: No growth after 24 hours . All specimens observed; Status: F Test: BLOOD CULTURE; Value: for 7 days. Results final at that time.; Status: F Lab Order: UA; SPEC'M 11/26/16 12:50 Test: APPEARANCE, URINE; Value: CLOUDY; Range: CLEAR; Abnormal: Above high normal; Status: F Test: COLOR, URINE; Value: MARE; Range: YELLOW; Status: F Test: PH,URINE; Value: 5.0; Range: 5.0-9.0; Units: UNITS; Status: F Test: SPECIFIC GRAVITY URINE AUTO; Value: 1.026; Range: 1.002-1.035; Status: F Test: PROTEIN, URINE AUTO; Value: 2+; Range: NEGATIVE; Abnormal: Above high normal; Units: mg/dL; Status: F Test: GLUCOSE, URINE (UA) AUTO; Value: NEGATIVE; Range: NEGATIVE; Units: mg/dL; Status: F Test: KETONE, URINE AUTO; Value: NEGATIVE; Range: NEGATIVE; Units: mg/dL; Status: F Test: UROBILINOGEN, URINE AUTO; Value: 0.2; Range: 0.0-2.0; Units: mg/dL; Status: F Test: BILIRUBIN, URINE AUTO; Value: NEGATIVE; Range: NEGATIVE; Status: F Test: NITRITE, URINE AUTO; Value: POSITIVE; Range: NEGATIVE; Status: F Test: LEUKOCYTE ESTERASE, URINE AUTO; Value: NEGATIVE; Range: NEGATIVE; Status: F Test: BLOOD, URINE BLOOD; Value: 1+; Range: NEGATIVE; Abnormal: Above high normal; Status: F Test: WBC, URINE AUTO; Value: 13; Range: 0-3; Abnormal: Above high normal; Units: /HPF; Status: F Test: RBC, URINE AUTO; Value: 4; Range: 0-3; Abnormal: Above high normal; Units: /HPF; Status: F Test: BACTERIA, URINE AUTO; Value: 1+; Range: NEGATIVE; Abnormal: Above high normal; Status: F Test: SQUAMOUS EPITHELIAL CELL UR AU; Value: 2; Range: 0-6; Units: /HPF; Status: F Test: TRANSITIONAL EPITHELIAL AUTO; Value: 1; Range: NONE; Units: /HPF; Status: F Test: RENAL EPITHELIAL CELLS; Value: 1; Range: NONE; Units: /HPF; Status: F Test: MUCUS, URINE; Value: SMALL; Range: NEGATIVE; Status: F Test: HYALINE CAST, URINE AUTO; Value: 6; Range: 0-1; Units: /LPF; Status: F Test: GRANULAR CAST, URINE AUTO; Value: 19; Range: NONE; Units: /LPF; Status: F Test: AMORPHOUS SEDIMENT; Value: MODERATE; Range: NEGATIVE; Abnormal: Above high normal; Status: F Lab Order: PLATELET ESTIMATE; SPEC'M 11/26/16 12:07 Test: PLATELET ESTIMATE; Value: NORMAL; Range: NORMAL; Status: F Lab Order: BLOOD CULTURES; SPEC'M 11/26/16 12:28 Test: BLOOD CULTURE; Value: No growth after 24 hours . All specimens observed; Status: F Test: BLOOD CULTURE; Value: for 7 days. Results final at that time.; Status: F Lab Order: TROPONIN; SPEC'M 11/26/16: Test: TROPONIN I; Value: 0.11; Range: < 0.10; Abnormal: Above high normal; Units: NG/ML; Status: F Test Note: ; Troponin I Reference Interval for [facility] LOCI: 99th Percentile= 0.00-0.045 ng/ml Risk Stratification: <= 0.10 ng/ml Decreased Risk for Adverse Clinical Events. 0.10-1.50 ng/ml Increased Risk for Adverse Clinical Events. Evaluation of additional criterion and/or repeat testing in 2-6 hours is suggested to rule out myocardial damage. >= 1.50 ng/ml Indicative of Myocardial Injury. Lab Order: LACTIC ACID LEVEL, LACTATE; SPEC' 11/26/16: Test: LACTIC ACID LEVEL, LACTATE; Value: 1.6; Range: 0.4-2.0; Units: MMOL/L; Status: F Lab Order: COMPLETE BLOOD COUNT; SPEC' 11/26/16 Test: WHITE BLOOD COUNT; Value: 26.4; Range: 4.0-10.0; Abnormal: Above high normal; Units: K/mm3; Status: F Test: RED BLOOD COUNT; Value: 3.31; Range: 4.00-5.40; Abnormal: Below low normal; Units: M/mm3; Status: F Test: HEMOGLOBIN; Value: 10.3; Range: 12.0-16.0; Abnormal: Below low normal; Units: g/dl; Status: F Test: HEMATOCRIT; Value: 30.4; Range: 36.0-47.0; Abnormal: Below low normal; Units: %; Status: F Test: MEAN CORPUSCULAR VOLUME; Value: 91.8; Range: 80.0-96.0; Units: fl; Status: F Test: MEAN CORPUSCULAR HEMOGLOBIN; Value: 31.0; Range: 27.0-33.0; Units: pg; Status: F Test: MEAN CORPUSCULAR HGB CONC; Value: 33.8; Range: 32.0-36.5; Units: g/dl; Status: F Test: RED CELL DISTRIBUTION WIDTH; Value: 13.1; Range: 11.5-14.5; Units: %; Status: F Test: PLATELET COUNT, AUTOMATED; Value: 114; Range: 150-450; Abnormal: Below low normal; Units: k/mm3; Status: F Lab Order: BASIC METABOLIC PROFILE; SPECM 11/26/16 19:29 Test: GLUCOSE, FASTING; Value: 105; Range: 83-110; Units: MG/DL; Status: F Test: BLOOD UREA NITROGEN; Value: 34; Range: 7-18; Abnormal: Above high normal; Units: MG/DL; Status: F Test: CREATININE FOR GFR; Value: 1.28; Range: 0.55-1.02; Abnormal: Above high normal; Units: MG/DL; Status: F Test: GLOMERULAR FILTRATION RATE; Value: 43.2; Range: >39; Status: F Test: SODIUM LEVEL; Value: 145; Range: 136-145; Units: MEQ/L; Status: F Test: POTASSIUM SERUM; Value: 3.7; Range: 3.5-5.1; Units: MEQ/L; Status: F Test: CHLORIDE LEVEL; Value: 113; Range: 98-107; Abnormal: Above high normal; Units: MEQ/L; Status: F Test: CARBON DIOXIDE LEVEL; Value: 20; Range: 21-32; Abnormal: Below low normal; Units: MEQ/L; Status: F Test: ANION GAP; Value: 12; Range: 8-16; Units: MEQ/L; Status: F Test: CALCIUM LEVEL; Value: 7.5; Range: 8.8-10.2; Abnormal: Below low normal; Units: MG/DL; Status: F Test Note: ; Units are mL/min/1.73 m2 Chronic Kidney Disease Staging per NKF: Stage I & II GFR >=60 Normal to Mildly Decreased Stage III GFR 30-59 Moderately Decreased Stage IV GFR 15-29 Severely Decreased Stage V GFR <15 Very Little GFR Left ESRD GFR <15 on HARDWARE ENGINEER Lab Order: TROPONIN; SPEC'M 11/27/16 02:55 Test: TROPONIN I; Value: 1.27; Range: < 0.10; Abnormal: High; Units: NG/ML; Status: F Test Note: ; Troponin I Reference Interval for [facility] LOCI: 99th Percentile= 0.00-0.045 ng/ml Risk Stratification: <= 0.10 ng/ml Decreased Risk for Adverse Clinical Events. 0.10-1.50 ng/ml Increased Risk for Adverse Clinical Events. Evaluation of additional criterion and/or repeat testing in 2-6 hours is suggested to rule out myocardial damage. >= 1.50 ng/ml Indicative of Myocardial Injury. Lab Order: TROPONIN; SPEC'M 11/27/16 11:06 Test: TROPONIN I; Value: 0.70; Range: < 0.10; Abnormal: High; Units: NG/ML; Status: F Test Note: ; Troponin I Reference Interval for [email or web address] LOCI: 99th Percentile= 0.00-0.045 ng/ml Risk Stratification: <= 0.10 ng/ml Decreased Risk for Adverse Clinical Events. 0.10-1.50 ng/ml Increased Risk for Adverse Clinical Events. Evaluation of additional criterion and/or repeat testing in 2-6 hours is suggested to rule out myocardial damage. >= 1.50 ng/ml Indicative of Myocardial Injury. Lab Order: BASIC METABOLIC PROFILE; SPEC'M 11/27/16 02:55 Test: GLUCOSE, FASTING; Value: 100; Range: 83-110; Units: MG/DL; Status: F Test: BLOOD UREA NITROGEN; Value: 33; Range: 7-18; Abnormal: Above high normal; Units: MG/DL; Status: F Test: CREATININE FOR GFR; Value: 1.00; Range: 0.55-1.02; Units: MG/DL; Status: F Test: GLOMERULAR FILTRATION RATE; Value: 57.4; Range: >39; Status: F Test: SODIUM LEVEL; Value: 147; Range: 136-145; Abnormal: Above high normal; Units: MEQ/L; Status: F Test: POTASSIUM SERUM; Value: 3.4; Range: 3.5-5.1; Abnormal: Below low normal; Units: MEQ/L; Status: F Test: CHLORIDE LEVEL; Value: 114; Range: 98-107; Abnormal: Above high normal; Units: MEQ/L; Status: F Test: CARBON DIOXIDE LEVEL; Value: 22; Range: 21-32; Units: MEQ/L; Status: F Test: ANION GAP; Value: 11; Range: 8-16; Units: MEQ/L; Status: F Test: CALCIUM LEVEL; Value: 7.1; Range: 8.8-10.2; Abnormal: Below low normal; Units: MG/DL; Status: F Test Note: ; Units are mL/min/1.73 m2 Chronic Kidney Disease Staging per NKF: Stage I & II GFR >=60 Normal to Mildly Decreased Stage III GFR 30-59 Moderately Decreased Stage IV GFR 15-29 Severely Decreased Stage V GFR <15 Very Little GFR Left ESRD GFR <15 on HARDWARE ENGINEER Lab Order: COMPLETE BLOOD COUNT; SPEC'M 11/27/16 02:55 Test: WHITE BLOOD COUNT; Value: 20.7; Range: 4.0-10.0; Abnormal: Above high normal; Units: K/mm3; Status: F Test: RED BLOOD COUNT; Value: 3.09; Range: 4.00-5.40; Abnormal: Below low normal; Units: M/mm3; Status: F Test: HEMOGLOBIN; Value: 9.6; Range: 12.0-16.0; Abnormal: Below low normal; Units: g/dl; Status: F Test: HEMATOCRIT; Value: 28.6; Range: 36.0-47.0; Abnormal: Below low normal; Units: %; Status: F Test: MEAN CORPUSCULAR VOLUME; Value: 92.6; Range: 80.0-96.0; Units: fl; Status: F Test: MEAN CORPUSCULAR HEMOGLOBIN; Value: 31.2; Range: 27.0-33.0; Units: pg; Status: F Test: MEAN CORPUSCULAR HGB CONC; Value: 33.7; Range: 32.0-36.5; Units: g/dl; Status: F Test: RED CELL DISTRIBUTION WIDTH; Value: 13.2; Range: 11.5-14.5; Units: %; Status: F Test: PLATELET COUNT, AUTOMATED; Value: 111; Range: 150-450; Abnormal: Below low normal; Units: k/mm3; Status: F Radiology Order: Chest, 1 View Test: Chest, 1 View REASON FOR EXAMINATION: fever; PORTABLE CHEST; ; AP portable view of the chest is performed and compared to a prior study of; 07/03/2014.; ; There is poor ventilation with crowded lung markings in each lung base. No; infiltrate is seen. The cardiomediastinal silhouette appears mildly magnified.; ; IMPRESSION:; ; No definite acute infiltrate.; ; ; Signed by; Hunter Murillo MD 11/26/2016 04:28 P; Radiology Order: CT ABD & PELVIS: No Contrast Test: CT ABD & PELVIS: No Contrast REASON FOR EXAMINATION: Abdomen Pain; CT STUDY OF THE ABDOMEN AND PELVIS WITHOUT IV OR ORAL CONTRAST:; ; HISTORY: Aspiration. Abdominal pain.; ; Comparison CT study September 09, 2016.; ; FINDINGS: There are multiple low-density areas in this liver consistent with; hepatic cysts unchanged from the comparison study. No focal splenic lesion is; seen. There are however several small accessory splenules. The gallbladder is; mildly distended. It is homogeneous. There is a large cyst occupying the lower; pole left kidney. This measures 11.5 cm in AP dimension today, previously 10.7; cm on September 09, 2016. It is slightly larger. No hydronephrosis is seen. No; intrarenal calculus is observed. No retroperitoneal mass or adenopathy is seen.; Normal caliber aorta is noted. Uterus is somewhat heterogeneous consistent with; fibroid change. The endometrium appears thickened or distended. Cannot exclude; endometrial hyperplasia or malignancy. This is similar to prior CT and; ultrasound appearance. A Tellez catheter is seen within the otherwise empty; urinary bladder. No obstructive gastrointestinal lesion is seen. No abdominal; wall defect is observed. Bone window settings demonstrate degenerative spine; changes. No acute bony abnormality is seen.; ; IMPRESSION:; ; 1. Mildly distended gallbladder.; ; 2. Stable hepatic cysts.; ; 3. 11.5 cm simple cyst left kidney slightly larger than on the September 09, 2016; prior CT.; ; 4. Somewhat enlarged fibroid uterus. Endometrium appears distended similar to; prior study and recent ultrasound. I cannot exclude endometrial hyperplasia or; malignancy.; ; 5. Tellez catheter.; ; ; Signed by; Stuart Manzo MD 11/26/2016 03:50 P; Radiology Order: CT Chest Without Contrast Test: CT Chest Without Contrast REASON FOR EXAMINATION: aspiration; CT study of the chest without contrast:; ; History: Aspiration. Comparison is made with today's chest x-ray.; ; CT findings: The lungs are symmetrically aerated. There is some subsegmental; bibasilar lower lobe plate-like atelectasis bilaterally. No other infiltrate is; appreciated. No pleural effusion or pericardial effusion is seen. There is; vascular calcification. 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 This is a normal variant. The thoracic; aorta is tortuous and normal in caliber. No extrathoracic mass or adenopathy is; seen. No pulmonary mass lesion is observed. Bone window settings demonstrate; diffuse degenerative disc disease. There is mild osteoporotic wedging in several; thoracic vertebrae. No bony destructive lesion is seen.; ; Impression:; ; Mild bilateral lower lobe discoid atelectasis. Cardiomegaly. Otherwise no; acute disease.; ; ; Signed by; Stuart Manzo MD 11/26/2016 03:49 P; Radiology Order: EKG-ADULT Test: EKG-ADULT REASON FOR EXAMINATION: Abdomen Pain; Stationary ECG Study; [facility] ED; ; Test Date: 2016-11-26; Pat Name: [facility] Department:; Room: -; Gender: F Oracle Developer: lyle; : 1940 Requested By: Delaney Perez; Order Number: [id number] Reading MD: Delaney Perez; Measurements; Intervals [place]; Rate: 104 P: 12; W[place]: 142 QRS: 10; QRSD: 84 T: 8; QT: 351; QTc: 462; Interpretive Statements; SINUS TACHYCARDIA; MODERATE T-WAVE ABNORMALITY, CONSIDER ANTEROLATERAL ISCHEMIA; LOW VOLTAGE LIMB; NSTTW ABNORMALITY; Electronically Signed On 11-26-2016 19:33:25 EST by Delaney Perez; Radiology Order: EKG-ADULT Test: EKG-ADULT REASON FOR EXAMINATION: tacycardia; Stationary ECG Study; [facility] ED; ; Test Date: 2016-11-26; Pat Name: [facility] Department:; Room: -; Gender: F Oracle Developer: lyle; : 1940 Requested By: Delaney Perez; Order Number: [id number] Reading MD: Delaney Perez; Measurements; Intervals [place]; Rate: 176 P:; WY: 0 QRS: 27; QRSD: 98 T: 214; QT: 248; QTc: 425; Interpretive Statements; SUPRAVENTRICULAR TACHYCARDIA, POSSIBLE ATRIAL FLUTTER; ST DEVIATION AND MODERATE T-WAVE ABNORMALITY, CONSIDER ANTEROLATERAL ISCHEMIA; ST DEVIATION AND MODERATE T-WAVE ABNORMALITY, CONSIDER INFERIOR ISCHEMIA; PRIOR SINUS TACHYCARDIA/ MORE PRONOUNCED ST CHANGES CLINICAL CORRELATION; Electronically Signed On 11-26-2016 19:34:02 EST by Delaney Perez; Outcome: 14:55 Decision to Hospitalize by Provider. sd1 11/27 16:38 Discharge Assessment: Patient awake, alert and oriented x 3. No cognitive and/or pml functional deficits noted. Patient verbalized understanding of disposition instructions. patient administered narcotics - no. The following High Risk Discharge criteria are identified: None. Admitted to ICU accompanied by nurse, accompanied by tech, via stretcher, on monitor, with chart. Condition: good. Admission hand-off: Report called to AFFILIATE MARKETING COORDINATOR. Property :Personal belongings accompany Pt. 16:40 CT Study completed. pml 16:41 Patient left the ED. pml Signatures: Dispatcher [employer] EDMS Delaney Perez MD MD sd1 Debbie Gautam, RN RN kmBonnie Jacobs RN Tiffany Tyson mcp RN Vandana MotnielRN ADRIA hillman3 Kath Christine,RN ADRIA jo3 Ezra Santana, Reg Reg kf3 James Jalloh, ONLINE MARKETING MANAGER ONLINE MARKETING MANAGER dd6 Kath Casillas RN RN jc4 Sylvia Musa RN RN pml Conner, Teresa, RN RN ttb Beck, Gabriela gjb Palmer, Jessica,RN RN duong6 Ailyn Grimm2 Ann-Marie Lopez,RN RN tm5 Corrections: (The following items were deleted from the chart) 16:40 16:38 No special radiology studies were completed pml pml Chart Complete MTDD
--- NOTE | 2016-12-01 15:48 | IPNPDOC ---
Assessment/Plan Date Seen The patient was seen on 12/01/16. Problems Problems: (1) Sepsis Status: Resolved Problem Text: due to UTI Has ecoli pansensitive . continue rocephin day4 (2) Primary cervical squamous cell carcinoma Status: Acute Problem Text: * biopsy done on 11/26 cervical squamous cell carcinoma * had long conversation with daughter who stated she doesn't want her mom to go through surgery, chemo or any aggressive treatment * hospice saw pt but since daughter was only interested in hospice house and there is a long wait list at this time, we will likely look into assisted placement for now * Dr Valenzuela was consulted, unable to definitively comment on how aggresive the cancer is until, more testing and invasive procedures are done * daughter doesn't want any more testing done (3) Dementia Status: Chronic Problem Text: patient a resident of [facility] in [place] patient will need termite control service representative placement (4) Atrial flutter Status: Resolved Problem Text: aflutter or SVT paroxysmal . now resolved. not anticoagulated as very short duration. Has dementia and tendency to falls. (5) Aphasia Status: Chronic (6) UTI (urinary tract infection) Status: Acute Problem Text: continue ceftriaxone (7) Diarrhea Status: Resolved Problem Text: gi panel negative stopped vancomycin. (8) Dysphagia Status: Chronic Problem Text: patient takes pureed food and honey thickened fluids at Assisted living Plan / VTE VTE Prophylaxis Ordered?: Yes Subjective Review of Systems CC/HPI The patient is a 76-year-old female admitted with a reason for visit of Sepsis. Events since last encounter pt seen and examined, no events overnight General: Reports: ROS Unobtainable Objective Physical Examination General Exam: Positive: No Acute Distress Eye Exam: Positive: Conjunctiva & lids normal, EOMI, PERRLA, Negative: Sclera icteric ENT Exam: Positive: Atraumatic, Mucous membr. moist/pink, Pharynx Normal Chest Exam: Positive: Normal air movement, Rales Heart Exam: Positive: Irregular Rhythm, Normal S1, Normal S2 Telemetry: Positive: No significant arrhythmia Abdomen Exam: Positive: Normal bowel sounds, Soft, Negative: Hepatospenomegaly, Tenderness Extremity Exam: Positive: Normal pulses, Negative: Clubbing, Cyanosis, Edema Vital Signs/I&O Vital Signs Date Time Temp Pulse Resp B/P Pulse Ox O2 Delivery O2 Flow Rate FiO2 12/01/16 14:00 98.8 61 20 113/65 92 Room Air 11/27/16 08:00 2.0 I&O- Last 24 Hours up to 6 AM 12/01/16 05:59 Intake Total 1330 ml Output Total 0 ml Balance 1330 ml Laboratory Data Labs 24H Laboratory Tests 2 12/01/16 06:12: Anion Gap 7L, Blood Urea Nitrogen 8, Creatinine 0.53L, Sodium Level 143, Potassium Level 3.4L, Chloride Level 110H, Carbon Dioxide Level 26, Calcium Level 8.3L, Glomerular Filtration Rate > 60.0 CBC/BMP Laboratory Tests 12/01/16 06:12 Calcium Level 8.3 L, Red Blood Count 3.49 L, Mean Corpuscular Volume 90.0, Mean Corpuscular Hemoglobin 30.6, Mean Corpuscular Hemoglobin Concent 34.0, Red Cell Distribution Width 13.1 Microbiology Microbiology 11/30/16 Blood Culture, Received Pending 11/26/16 Blood Culture - Preliminary, Resulted 11/26/16 Blood Culture - Final, Complete NO GROWTH AFTER 5 DAYS 11/28/16 Gastrointestinal Tract Panel (PCR) - Final, Complete 11/27/16 MRSA Screen - Final, Complete 11/26/16 Urine Culture - Final, Complete Escherichia Coli SILKE GUEVARA DO Dec 01, 2016 15:48
[2016-12-01] MEDS: SERTRALINE 100 MG TAB PO SCH (20:32)
[2016-12-01 22:00] VITALS: BP 126/85
[2016-12-02 06:00] VITALS: BP 131/81
[2016-12-02 06:32] LABS: MEAN CORPUSCULAR HEMOGLOBIN 30.2 pg (27.0-33.0); MEAN CORPUSCULAR HGB CONC 33.6 g/dl (32.0-36.5); MEAN CORPUSCULAR VOLUME 89.8 fl (80.0-96.0); RED CELL DISTRIBUTION WIDTH 13.4 % (11.5-14.5); WHITE BLOOD COUNT 8.6 K/mm3 (4.0-10.0)
[2016-12-02 06:44] LABS: ANION GAP 8 MEQ/L (8-16); BLOOD UREA NITROGEN 9 MG/DL (7-18); CALCIUM LEVEL 8.3 MG/DL (8.8-10.2); CARBON DIOXIDE LEVEL 24 MEQ/L (21-32); CHLORIDE LEVEL 110 MEQ/L (98-107); CREATININE FOR GFR 0.56 MG/DL (0.55-1.02); GLOMERULAR FILTRATION RATE > 60.0 (>39); GLUCOSE, FASTING 107 MG/DL (83-110); POTASSIUM SERUM 3.4 MEQ/L (3.5-5.1); SODIUM LEVEL 142 MEQ/L (136-145)
[2016-12-02 08:06] VITALS: BP 119/69
--- NOTE | 2016-12-02 10:53 | IPNPDOC ---
Assessment/Plan Date Seen The patient was seen on 12/02/16. Problems Problems: (1) Dementia Status: Chronic Problem Text: patient a resident of [facility] in [place] patient will need usp placement will change status to [facility] until discharge plan is in place (2) Sepsis Status: Resolved Problem Text: due to UTI Has ecoli pansensitive . continue rocephin day 5 will continue for 2 more days then d/c (3) Primary cervical squamous cell carcinoma Status: Acute Problem Text: * biopsy done on 11/26 cervical squamous cell carcinoma * had long conversation with daughter who stated she doesn't want her mom to go through surgery, chemo or any aggressive treatment * hospice saw pt but since daughter was only interested in hospice house and there is a long wait list at this time, we will likely look into usp placement for now * Dr Valenzuela was consulted, unable to definitively comment on how aggresive the cancer is until, more testing and invasive procedures are done * daughter doesn't want any more testing done (4) Atrial flutter Status: Resolved Problem Text: aflutter or SVT paroxysmal . now resolved. not anticoagulated as very short duration. Has dementia and tendency to falls. (5) Aphasia Status: Chronic (6) UTI (urinary tract infection) Status: Acute Problem Text: continue ceftriaxone (7) Diarrhea Status: Resolved Problem Text: gi panel negative stopped vancomycin. (8) Dysphagia Status: Chronic Problem Text: patient takes pureed food and honey thickened fluids at Assisted living Plan / VTE VTE Prophylaxis Ordered?: Yes Subjective Review of Systems CC/HPI The patient is a 76-year-old female admitted with a reason for visit of Sepsis. General: Reports: ROS Unobtainable Objective Physical Examination General Exam: Positive: No Acute Distress Eye Exam: Positive: Conjunctiva & lids normal, EOMI, PERRLA, Negative: Sclera icteric ENT Exam: Positive: Atraumatic, Mucous membr. moist/pink, Pharynx Normal Chest Exam: Positive: Normal air movement, Rales Heart Exam: Positive: Irregular Rhythm, Normal S1, Normal S2 Telemetry: Positive: No significant arrhythmia Abdomen Exam: Positive: Normal bowel sounds, Soft, Negative: Hepatospenomegaly, Tenderness Extremity Exam: Positive: Normal pulses, Negative: Clubbing, Cyanosis, Edema Vital Signs/I&O Vital Signs Date Time Temp Pulse Resp B/P Pulse Ox O2 Delivery O2 Flow Rate FiO2 2/2/17 08:06 97.6 70 18 119/69 95 Room Air 11/27/16 08:00 2.0 I&O- Last 24 Hours up to 6 AM 12/02/16 06:00 Intake Total 1250 ml Output Total 0 ml Balance 1250 ml Laboratory Data Labs 24H Laboratory Tests 2 12/02/16 06:19: Anion Gap 8, Blood Urea Nitrogen 9, Creatinine 0.56, Sodium Level 142, Potassium Level 3.4L, Chloride Level 110H, Carbon Dioxide Level 24, Calcium Level 8.3L, Glomerular Filtration Rate > 60.0 CBC/BMP Laboratory Tests 12/02/16 06:19 Calcium Level 8.3 L, Red Blood Count 3.42 L, Mean Corpuscular Volume 89.8, Mean Corpuscular Hemoglobin 30.2, Mean Corpuscular Hemoglobin Concent 33.6, Red Cell Distribution Width 13.4 Microbiology Microbiology 11/30/16 Blood Culture - Preliminary, Resulted No growth after 24 hours . All specim... 11/26/16 Blood Culture - Preliminary, Resulted 11/26/16 Blood Culture - Final, Complete NO GROWTH AFTER 5 DAYS 11/28/16 Gastrointestinal Tract Panel (PCR) - Final, Complete 11/27/16 MRSA Screen - Final, Complete 11/26/16 Urine Culture - Final, Complete Escherichia Coli SILKE GUEVARA DO Dec 02, 2016 10:53
[2016-12-02] MEDS: cefTRIAXone SOD 1 GM in D5W MINI-BAG PLUS 50 ML IV SCH (11:38)
[2016-12-02 14:00] VITALS: BP 124/84
[2016-12-02] MEDS: SERTRALINE 100 MG TAB PO SCH (20:13)
[2016-12-02] MEDS: CEPHALEXIN 500 MG CAP PO SCH (20:13)
[2016-12-03 06:00] VITALS: BP 137/58
[2016-12-03 06:27] LABS: MEAN CORPUSCULAR HEMOGLOBIN 30.2 pg (27.0-33.0); MEAN CORPUSCULAR HGB CONC 33.2 g/dl (32.0-36.5); RED CELL DISTRIBUTION WIDTH 13.7 % (11.5-14.5); WHITE BLOOD COUNT 8.8 K/mm3 (4.0-10.0)
[2016-12-03 06:39] LABS: ANION GAP 8 MEQ/L (8-16); BLOOD UREA NITROGEN 12 MG/DL (7-18); CALCIUM LEVEL 8.2 MG/DL (8.8-10.2); CARBON DIOXIDE LEVEL 25 MEQ/L (21-32); CHLORIDE LEVEL 109 MEQ/L (98-107); CREATININE FOR GFR 0.58 MG/DL (0.55-1.02); GLOMERULAR FILTRATION RATE > 60.0 (>39); GLUCOSE, FASTING 89 MG/DL (83-110); POTASSIUM SERUM 3.6 MEQ/L (3.5-5.1); SODIUM LEVEL 142 MEQ/L (136-145)
[2016-12-03] MEDS: CEPHALEXIN 500 MG CAP PO SCH (09:00)
--- NOTE | 2016-12-03 10:41 | ECGEPIP ---
Stationary ECG Study [facility] Test Date: 2016-12-02 Pat Name: JUSTIN CRUZ Department: Room: [place] [address] Gender: F Scale Attendant: : 1940 Requested By: MANPREET GUTIÉRREZ Order Number: [id number] Reading MD: Dax Noonan Measurements Intervals [place] Rate: 55 P: 65 DC: 151 QRS: -1 QRSD: 85 T: 17 QT: 432 QTc: 414 Interpretive Statements SINUS BRADYCARDIA NONSPECIFIC ST & T-WAVE ABNORMALITY SIMILAR 11/29/16, HR IS SLOWER Electronically Signed On 12-03-2016 10:40:42 EST by Dax Noonan
--- NOTE | 2016-12-22 13:20 | DSES ---
DATE OF ADMISSION: 11/26/2016 DATE OF DISCHARGE: 12/03/2016 PRIMARY CARE PROVIDER: Dr. Becky Garcia LEATHER CRAFTSMAN. Dr. Mai Valenzuela REASON FOR ADMISSION: Fever FINAL DIAGNOSES: 1. Sepsis secondary to Escherichia (E) coli urinary tract infection (UTI). 2. Primary cervical squamous cell carcinoma. 3. Atrial flutter. 4. Aphasia. 5. Diarrhea 6. Dysphasia. 7. History of dementia. HISTORY OF PRESENT ILLNESS: The patient is a 76-year-old female with multiple comorbidities who presented to the emergency room with fevers. She stated that she recently had dysfunctional uterine discharge, had a CT which revealed abnormal thickening of her uterine lining and there was a concern for uterine cancer. Following the procedure, she was afebrile but daughter insisted on taking her home. However, she continued to be febrile at home until she presented to the emergency room. The patient had chronic uterine tract infection, most recently E-coli pansensitive at baseline. She was admitted under hospitalist service. She was also noted to have perfuse diarrhea for the last several days. HOSPITAL COURSE: The patient was admitted and treated with antibiotics, ceftriaxone. For her E-coli, urine cultures were obtained. They were pansensitive. She was also treated with Flagyl for the diarrhea. Gastrointestinal (GI) panel was ordered. It was negative, and Flagyl and vancomycin were discontinued after that came back. The daughter had some questions regarding her uterine cancer and the status. I spoke with Dr. Valenzuela who did the biopsy on 11/26/2016. The daughter was realistic and did not want her mom to go through any surgery, chemo or aggressive treatment. Per Dr. Valenzuela, she was unable to make a definitive diagnosis on how aggressive her cancer is until more testing and procedures are done, which the daughter did not want to proceed with. At this time, the daughter requested hospice, who was saw the daughter. She is only interested in hospice house, which at this time she is not ready for. The patient however, and daughter were interested in group home placement until patient is in a situation where she would need hospice house. Once bed became available at [facility], patient was discharged. DISCHARGE INSTRUCTIONS: She is to followup with primary care provider as needed. Diet regular. Activities as tolerated. Discharge medications include: - acetaminophen 650 mg by mouth twice a day - eye drops as needed, dry eyes - Namenda 28 mg by mouth daily - sertraline 100 mg by mouth at bedtime Discharge condition was stable.
== END 2016-12-03 14:24 | DRG 872 ==
LOC: M ED 11:30 → M ED INP 18:55 → M ICU 11-27 16:50 → M MSPAV 11-28 10:15
PROVIDERS: ADMIT Internal Medicine; ATTEND Internal Medicine
DX: A41.9 Sepsis, unspecified organism (principal); N39.0 Urinary tract infection, site not specified; I48.92 Unspecified atrial flutter; N17.9 Acute kidney failure, unspecified; R47.01 Aphasia; B96.29 Other Escherichia coli [E. coli] as the cause of diseases classified elsewhere; G30.9 Alzheimer's disease, unspecified; C53.9 Malignant neoplasm of cervix uteri, unspecified; Z66 Do not resuscitate; F02.80 Dementia in other diseases classified elsewhere, unspecified severity, without behavioral disturbance, psychotic disturbance, mood disturbance, and anxiety; Z79.899 Other long term (current) drug therapy; Z88.5 Allergy status to narcotic agent; Z88.2 Allergy status to sulfonamides; E87.6 Hypokalemia; F32.9 Major depressive disorder, single episode, unspecified

== ENCOUNTER → 2016-12-13 | Outpatient (CLI) | payer MEDICARE, OTHER, MEDICAID | LOC: SKLAB5 20:48 | PROVIDERS: ATTEND Internal Medicine | DX: R50.9 Fever, unspecified (principal) ==

== ENCOUNTER → 2016-12-13 | Outpatient (REF) ==
[2016-12-13 14:11] LABS: BASO % 0.2 % (0.0-1.0); EOS # 0.1 K/mm3 (0.0-0.50); EOS % 0.8 % (0.0-3.0); LARGE UNSTAINED CELL # 0.1 K/mm3 (0.0-0.4); LARGE UNSTAINED CELL % 0.5 % (0.0-4.0); LYMPH # 0.8 K/mm3 (1.5-4.5); LYMPH % 6.6 % (24.0-44.0); MEAN CORPUSCULAR HEMOGLOBIN 30.9 pg (27.0-33.0); MEAN CORPUSCULAR HGB CONC 33.2 g/dl (32.0-36.5); MEAN CORPUSCULAR VOLUME 92.8 fl (80.0-96.0); MONO # 0.5 K/mm3 (0.0-0.8); MONO % 4.8 % (0.0-5.0); NEUTROPHILS # 9.8 K/mm3 (1.8-7.7); NEUTROPHILS % 87.1 % (36.0-66.0); PLATELET COUNT, AUTOMATED 313 k/mm3 (150-450); WHITE BLOOD COUNT 11.3 K/mm3 (4.0-10.0)
[2016-12-13 14:24] LABS: ANION GAP 10 MEQ/L (8-16); BLOOD UREA NITROGEN 8 MG/DL (7-18); CARBON DIOXIDE LEVEL 24 MEQ/L (21-32); CHLORIDE LEVEL 105 MEQ/L (98-107); CREATININE FOR GFR 0.75 MG/DL (0.55-1.02); GLOMERULAR FILTRATION RATE > 60.0 (>39); GLUCOSE, FASTING 153 MG/DL (83-110); POTASSIUM SERUM 4.1 MEQ/L (3.5-5.1); SODIUM LEVEL 139 MEQ/L (136-145)
== END ==
LOC: SKLAB5 12:56
PROVIDERS: ATTEND Internal Medicine
DX: R50.9 Fever, unspecified (principal)

== ENCOUNTER → 2016-12-15 | Outpatient (REF) ==
--- NOTE | 2016-12-15 18:37 | REP ---
Portable chest, single AP view, 04:34 p.m., 12/15/2016: Comparison is 11/26/2016. There are no focal infiltrates. No pleural effusions. No masses. Cardiac size is normal for portable positioning. The grant, mediastinum, and bony thorax are unremarkable. An orthopedic anchor screw is noted in the right humeral head, unchanged. Impression: There are no acute cardiopulmonary findings. Signed by Hunter Samaniego MD 12/15/2016 06:29 P
== END | disposition home or self-care (01) ==
LOC: SKLAB5 14:31
PROVIDERS: ATTEND Internal Medicine
DX: R50.9 Fever, unspecified (principal)

== ENCOUNTER → 2016-12-16 | Outpatient (REF) ==
[2016-12-16 08:59] LABS: BASO % 0.2 % (0.0-1.0); EOS # 0.1 K/mm3 (0.0-0.50); EOS % 0.5 % (0.0-3.0); LARGE UNSTAINED CELL # 0.4 K/mm3 (0.0-0.4); LARGE UNSTAINED CELL % 2.6 % (0.0-4.0); LYMPH # 1.9 K/mm3 (1.5-4.5); LYMPH % 11.7 % (24.0-44.0); MEAN CORPUSCULAR HGB CONC 33.5 g/dl (32.0-36.5); MEAN CORPUSCULAR VOLUME 89.6 fl (80.0-96.0); MONO % 6.4 % (0.0-5.0); NEUTROPHILS # 12.6 K/mm3 (1.8-7.7); NEUTROPHILS % 78.7 % (36.0-66.0); PLATELET COUNT, AUTOMATED 250 k/mm3 (150-450); RED CELL DISTRIBUTION WIDTH 13.4 % (11.5-14.5)
[2016-12-16 09:20] LABS: ANION GAP 11 MEQ/L (8-16); BLOOD UREA NITROGEN 14 MG/DL (7-18); CALCIUM LEVEL 8.2 MG/DL (8.8-10.2); CARBON DIOXIDE LEVEL 22 MEQ/L (21-32); CHLORIDE LEVEL 103 MEQ/L (98-107); GLOMERULAR FILTRATION RATE > 60.0 (>39); GLUCOSE, FASTING 110 MG/DL (83-110); POTASSIUM SERUM 3.5 MEQ/L (3.5-5.1); SODIUM LEVEL 136 MEQ/L (136-145); TOTAL IRON BINDING CAPACITY 201 UG/DL (250-450)
[2016-12-16 13:29] LABS: VITAMIN B12 LEVEL 1643 PG/ML (247-911)
== END ==
LOC: SKLAB5 08:09
PROVIDERS: ATTEND Internal Medicine
DX: R50.9 Fever, unspecified (principal)

== ENCOUNTER → 2016-12-28 | Outpatient (REF) | LOC: SKLAB5 08:46 | PROVIDERS: ATTEND Internal Medicine | DX: R19.7 Diarrhea, unspecified (principal) ==

== ENCOUNTER → 2017-03-31 | Outpatient (REF) | payer MEDICARE, OTHER, MEDICAID | LOC: SKLAB5 16:00 | PROVIDERS: ATTEND Internal Medicine | DX: R19.7 Diarrhea, unspecified (principal) ==

== ENCOUNTER → 2017-04-10 | Outpatient (REF) | payer MEDICARE, OTHER, MEDICAID | LOC: SKLAB5 15:16 | PROVIDERS: ATTEND Family Medicine | DX: R19.7 Diarrhea, unspecified (principal) ==

== ENCOUNTER → 2017-05-04 | Outpatient (REF) | payer MEDICARE, OTHER, MEDICAID ==
[~2017-05-04] MED LIST changes: +IBUP-1022 PO; -IBUP600T26 PO
[2017-05-07 00:08] LABS: ANTI-SACCHAROMYCES CEREV. IgA 51.8 Units (0.0-24.9); ANTI-SACCHAROMYCES CEREV. IgG 52.2 Units (0.0-24.9)
== END ==
LOC: SKLAB5 05-02 06:57
PROVIDERS: ATTEND Internal Medicine
DX: R19.7 Diarrhea, unspecified (principal)

== ENCOUNTER → 2017-05-24 | Outpatient (REF) | payer MEDICARE, OTHER, MEDICAID | LOC: SKLAB5 18:43 | PROVIDERS: ATTEND Internal Medicine | DX: R19.7 Diarrhea, unspecified (principal) ==

== ENCOUNTER → 2017-12-12 | Outpatient (REF) | payer MEDICARE, OTHER, MEDICAID | LOC: SKLAB5 11:39 | DX: M85.862 Other specified disorders of bone density and structure, left lower leg (principal); R10.2 Pelvic and perineal pain | CPT/HCPCS: 72190 ==

== ENCOUNTER → 2017-12-12 | Outpatient (CLI) | payer MEDICARE, OTHER, MEDICAID | LOC: M RAD 15:24 | DX: M25.562 Pain in left knee (principal); Z53.9 Procedure and treatment not carried out, unspecified reason ==